=== PATIENT | male | born 1940 ===

== ENCOUNTER 2017-11-02 15:10 | Emergency (ER) | payer OTHER ==
[2017-11-02 15:18] VITALS: TEMP 98; O2SAT 98
[2017-11-02] MEDS ORDERED: Sodium Chloride 0.9% 1,000 ML IV STA (15:42)
[2017-11-02] MEDS ORDERED: Iohexol 240 (50 ml) PO ONE (15:42)
--- NOTE | 2017-11-02 15:46 | ED PDOC ---
HPI: Male Pain Chief Complaint (Provider): urinary and feces incontinence History Per: Patient, Other (friend) History/Exam Limitations: no limitations Onset/Duration Of Symptoms: Days, Gradual Current Symptoms Are (Timing): Other (Worse) Severity: Moderate Quality Of Discomfort: "Pain" Associated Symptoms: Other (Red blood in stools, abd pain) Additional Complaint(s): 77 y/o M, homeless, with no significant PMhx presents accompanied by friend with c/o urinary and feces incontinence for the past 3 months and scrotal swelling for about 1 year. Patient does not have a PCP and was only seen by ED at [facility] few days ago with similar complain. Patient also c/o r/side abd pain that radiates to he back and groin area. Denies vomiting, nausea, diarrhea , CP, SOB, palpitations. Patient's friend states that she also noticed new onset hand tremor recently. As per patient he has started to use diapers but doesnt always notice when he has a BM or urination. Denies scrotal pain. C/O small amount of red blood in stools or toilet with every BM. <Andrew Sanford - Last Filed: 11/02/17 17:26> <Trevro Lama - Last Filed: 11/02/17 21:02> Time Seen by Provider: 11/02/17 15:23 Chief Complaint (Nursing): GI Problem Supervising Attending Note - Supervising Attending Note The Documented history was done by the: Physician Director [employer] The documented physical exam was done by the: Physician Director [employer] The documented procedures were done by the: Physician Director [employer] - Attestation: I have personally seen and examined this patient.: Yes I have fully participated in the care of the patient.: Yes I have reviewed all pertinent clinical information, including history, physical exam and plan: Yes - Notes: Notes:: Pt. stable. Ambulating with no issues. Tolerated PO with no issues. No significant change in hg. Fu with pcp. <Trevor Lama - Last Filed: 11/02/17 21:02> Past Medical History Reviewed: Nursing Documentation, Vital Signs Vital Signs: Last Vital Signs Temp 98 F 11/02/17 15:15 Pulse 76 11/02/17 15:15 Resp 16 11/02/17 15:15 BP 135/66 11/02/17 15:15 Pulse Ox 98 11/02/17 15:15 - Medical History PMH: Denies: Diabetes, HIV, HTN, Chronic Kidney Disease, Seizures, Sexually Transmitted Disease - Surgical History Surgical History: No Surg Hx - Family History Family History: States: Unknown Family Hx - Social History Ex-Smoker (has not smoked in the last 12 months): Yes Alcohol: Occasional - Immunization History Hx Tetanus Toxoid Vaccination: No Hx Influenza Vaccination: No Hx Pneumococcal Vaccination: No <Andrew Sanford - Last Filed: 11/02/17 17:26> Vital Signs: Last Vital Signs Temp 98 F 11/02/17 15:15 Pulse 76 11/02/17 15:15 Resp 16 11/02/17 15:15 BP 135/66 11/02/17 15:15 Pulse Ox 98 11/02/17 17:26 <Trevor Lama - Last Filed: 11/02/17 21:02> - Home Medications Home Medications: Ambulatory Orders Medication Instructions Recorded No Known Home Med 11/02/17 - Allergies Allergies/Adverse Reactions: Allergies Allergy/AdvReac Type Severity Reaction Status Date / Time No Known Allergies Allergy Verified 11/02/17 15:15 Review of Systems ROS Statement: Except As Marked, All Systems Reviewed And Found Negative Gastrointestinal: Positive for: Abdominal Pain, Hematochezia, Rectal Pain Genitourinary Male: Positive for: Other (scrotal swelling) Neurological: Positive for: Other (tremor) <Andrew Sanford - Last Filed: 11/02/17 17:26> Physical Exam - Reviewed Vital Signs Reviewed: Yes - Physical Exam Appears: Positive for: Non-toxic, Uncomfortable. Negative for: Well (smells to urine and feces) Skin: Positive for: Normal Color, Warm Eye Exam: Positive for: Normal appearance Cardiovascular/Chest: Positive for: Regular Rate, Rhythm. Negative for: Gallop Respiratory: Positive for: Normal Breath Sounds. Negative for: Crackles, Rales , Wheezing Gastrointestinal/Abdominal: Positive for: Soft, Tenderness (R/flank mild). Negative for: Guarding, Rebound Male Genital Exam: Positive for: hernia mass (B/L nonreducible inguinal hernia with testicular swelling associated B/L.). Negative for: scrotum tenderness (R) , scrotum tenderness (L), testicular tenderness (R), testicular tenderness (L) Rectal: Positive for: Rectal Tone Is: (Diminished), Stool Is Heme: (+) Extremity: Negative for: Tenderness, Pedal Edema, Calf Tenderness Neurologic/Psych: Positive for: Alert, Oriented. Negative for: Motor/Sensory Deficits <Andrew Sanford - Last Filed: 11/02/17 17:26> - Physical Exam Cardiovascular/Chest: Positive for: Regular Rate, Rhythm Respiratory: Positive for: Normal Breath Sounds Gastrointestinal/Abdominal: Positive for: Tenderness Male Genital Exam: Positive for: hernia mass <Trevor Lama - Last Filed: 11/02/17 21:02> - Laboratory Results Result Diagrams: 11/02/17 16:19 11/02/17 16:19 - ECG O2 Sat by Pulse Oximetry: 98 <Andrew Sanford - Last Filed: 11/02/17 17:26> - Laboratory Results Result Diagrams: 11/02/17 16:19 11/02/17 16:19 Interpretation Of Abn Labs: no acute - ECG Pulse Ox Interpretation: Normal - CT Scan/US ct Other Rad Studies (CT/US): Read By Radiologist Other Rad Interpretation: hernia with no acute - Progress ED Course And Treament: 2057: Stable. AAOx3. Pain free. Tolerated PO. Ambulated with no issues. Fu with pcp. No hg change from old. <Trevor Lama Jorden - Last Filed: 11/02/17 21:02> Medical Decision Making Medical Decision Making: B/L Inguinal hernia with associated urinary and feces incontinence and hematochezia CT scan abd and pelvis CBC, CMP, Coags. FOBT Troponin, Lipase IV fluids Famotidine IV once <Andrew Sanford - Last Filed: 11/02/17 17:26> Disposition <Andrew Sanford - Last Filed: 11/02/17 17:26> - Patient ED Disposition Is Patient to be Admitted: No Counseled Patient/Family Regarding: Studies Performed, Diagnosis, Need For Followup - Disposition Disposition: Routine/Home Disposition Time: 21:00 <Trevor Lama - Last Filed: 11/02/17 21:02> - Clinical Impression Clinical Impression: Inguinal hernia, Abdominal pain - Disposition Referrals: [facility] [Outside] - 11/05/17 Condition: STABLE Additional Instructions: Return if not better in 3 days. Instructions: Acute Abdominal Pain (ED), Inguinal Hernia (ED) Print Language: TRINIDADIAN
[2017-11-02 16:26] LABS: BASO # 0.1 K/uL (0.0-0.2); BASO % 0.7 % (0.0-2.0); EOS # 0.4 K/uL (0.0-0.7); EOS % 4.1 % (0.0-4.0); HEMATOCRIT 34.8 % (35.0-51.0); LYMPH # 1.2 K/uL (1.0-4.3); LYMPH % 13.7 % (20.0-40.0); MEAN CELL VOLUME 91.6 fl (80.0-94.0); MEAN CORPUSCULAR HEMOGLOBIN 30.2 pg (27.0-31.0); MEAN PLATELET VOLUME 7.5 fl (7.2-11.7); MONO # 0.6 K/uL (0.0-0.8); MONO % 7.2 % (0.0-10.0); NEUT # 6.5 K/uL (1.8-7.0); NEUT % 74.3 % (50.0-75.0); RED CELL DISTRIBUTION WIDTH 13.2 % (11.5-14.5); WHITE BLOOD COUNT 8.8 K/uL (4.8-10.8)
[2017-11-02 16:37] LABS: PARTIAL THROMBOPLASTIN TIME 27.5 Seconds (25.6-37.1)
[2017-11-02 17:10] LABS: ALKALINE PHOSPHATASE 74 U/L (38-126); ALT/SGPT 29 U/L (21-72); AST/SGOT 24 U/L (17-59); BILIRUBIN,TOTAL 0.4 mg/dl (0.2-1.3); BLOOD UREA NITROGEN 12 mg/dl (9-20); CALCIUM 8.7 mg/dL (8.4-10.2); CARBON DIOXIDE 30 mmol/L (22-30); CHLORIDE 104 mmol/L (98-107); GFR AFRICAN-AMERICAN > 60; GLUCOSE,RANDOM 98 mg/dL (75-110); LIPASE 41 U/L (23-300); POTASSIUM 4.5 MMOL/L (3.6-5.0); SODIUM 141 mmol/l (132-148); TOTAL PROTEIN 6.6 G/DL (6.3-8.2)
[2017-11-02 17:30] LABS: ALB/GLOB RATIO 1.1 (1.0-2.1)
[2017-11-02] MEDS ORDERED: Iohexol 300 100 ML IJ ONE (18:25)
[2017-11-02 21:25] VITALS: BP 136/77; PULSE 78; RESP 18
--- NOTE | 2017-11-03 08:27 | CT ---
PROCEDURE: CT Abdomen and Pelvis with contrast HISTORY: abd pain COMPARISON: None. TECHNIQUE: Contrast dose: 95 cc of Omnipaque 300 Radiation dose: Total exam DLP = 681 mGy-cm. This CT exam was performed using one or more of the following dose reduction techniques: Automated exposure control, adjustment of the mA and/or kV according to patient size, and/or use of iterative reconstruction technique. FINDINGS: LOWER THORAX: Unremarkable. LIVER: Unremarkable. No gross lesion or ductal dilatation. GALLBLADDER AND BILE DUCTS: Unremarkable. PANCREAS: Unremarkable. No gross lesion or ductal dilatation. SPLEEN: Unremarkable. ADRENALS: Unremarkable. No mass. KIDNEYS AND URETERS: Bilateral hydronephrosis and hydroureter. Large right lower pole renal cyst measuring roughly 8 centimeters. VASCULATURE: Unremarkable. No aortic aneurysm. BOWEL: Unremarkable. No obstruction. No gross mural thickening. APPENDIX: Normal appendix. PERITONEUM: Unremarkable. No free fluid. No free air. LYMPH NODES: Unremarkable. No enlarged lymph nodes. BLADDER: Unremarkable. REPRODUCTIVE: Unremarkable. BONES: No acute fracture. OTHER FINDINGS: Large bilateral inguinal hernias containing colon loops without obstruction or strangulation. IMPRESSION: Large bilateral inguinal hernias containing colon loops without obstruction or strangulation. Bilateral hydronephrosis and hydroureter. Large right lower pole renal cyst.
== END 2017-11-02 21:30 | disposition home or self-care (01) ==
LOC: H.ER 15:10
DX: K40.20 Bilateral inguinal hernia, without obstruction or gangrene, not specified as recurrent (principal); N28.1 Cyst of kidney, acquired
CPT/HCPCS: 74177; 80053; 83690; 84484; 85025; 85610; 85730; 96361; 96374; 99283; G0328; J7040; Q9966; Q9967

== ENCOUNTER 2017-11-06 16:18 | Emergency (ER) | payer OTHER, SELFPAY ==
[2017-11-06 16:22] VITALS: BP 140/77; PULSE 75; RESP 18; TEMP 98.2; O2SAT 99
--- NOTE | 2017-11-06 17:29 | ED PDOC ---
HPI: Male Pain Time Seen by Provider: 11/06/17 17:14 Chief Complaint (Nursing): Male Genitourinary Chief Complaint (Provider): Lower back pain, dysuria History Per: Patient History/Exam Limitations: no limitations Onset/Duration Of Symptoms: Days Current Symptoms Are (Timing): Still Present Additional Complaint(s): Valerio Sosa is a 77 y/o non-domiciled male who presents to the ED complaining of right lower back pain and dysuria, ongoing for some time. Patient was seen here 4 days ago for similar complaints. He also reports having incontinence on and off, which is unchanged from his last visit. Additionally patient is noted to have bilateral inguinal hernias, which he states have no new changes. He offers no new complaints. Denies any fever, chills, hematuria, nausea, vomiting, diarrhea, weakness, numbness, tingling, or dizziness. PMD: None provided Past Medical History Reviewed: Historical Data, Nursing Documentation, Vital Signs Vital Signs: Last Vital Signs Temp 98.2 F 11/06/17 16:19 Pulse 75 11/06/17 16:19 Resp 18 11/06/17 16:19 BP 140/77 11/06/17 16:19 Pulse Ox 99 11/06/17 16:19 - Medical History PMH: Denies: Diabetes, HIV, HTN, Chronic Kidney Disease, Seizures, Sexually Transmitted Disease Other PMH: Inguinal hernia - Surgical History Surgical History: No Surg Hx - Family History Family History: States: Unknown Family Hx - Living Arrangements Living Arrangements: Other (Non-domiciled) - Social History Ex-Smoker (has not smoked in the last 12 months): Yes Alcohol: None Drugs: Denies - Immunization History Hx Tetanus Toxoid Vaccination: No Hx Influenza Vaccination: No Hx Pneumococcal Vaccination: No - Home Medications Home Medications: Ambulatory Orders Medication Instructions Recorded No Known Home Med 11/02/17 - Allergies Allergies/Adverse Reactions: Allergies Allergy/AdvReac Type Severity Reaction Status Date / Time No Known Allergies Allergy Verified 11/06/17 16:19 Review of Systems ROS Statement: Except As Marked, All Systems Reviewed And Found Negative Constitutional: Negative for: Fever, Chills Cardiovascular: Negative for: Chest Pain Respiratory: Negative for: Shortness of Breath Gastrointestinal: Negative for: Nausea, Vomiting, Diarrhea Genitourinary Male: Positive for: Dysuria, Incontinence (chronic per patient), Other (inguinal hernias). Negative for: Hematuria Neurological: Negative for: Weakness, Numbness (and tingling), Dizziness Physical Exam - Reviewed Nursing Documentation Reviewed: Yes Vital Signs Reviewed: Yes - Physical Exam Appears: Positive for: Non-toxic, No Acute Distress Head Exam: Positive for: ATRAUMATIC, NORMAL INSPECTION, NORMOCEPHALIC Skin: Positive for: Normal Color, Warm, Dry Eye Exam: Positive for: EOMI, Normal appearance, PERRL Neck: Positive for: Normal, Painless ROM, Supple Cardiovascular/Chest: Positive for: Regular Rate, Rhythm. Negative for: Murmur Respiratory: Positive for: Normal Breath Sounds. Negative for: Respiratory Distress Gastrointestinal/Abdominal: Positive for: Normal Exam, Soft, Other (B/L inguinal hernias). Negative for: Tenderness Back: Positive for: Normal Inspection, Other (mild tenderness to right lower back) Extremity: Positive for: Normal ROM. Negative for: Pedal Edema, Deformity Neurologic/Psych: Positive for: Alert, Oriented (x 3). Negative for: Motor/ Sensory Deficits - ECG O2 Sat by Pulse Oximetry: 99 (RA) Pulse Ox Interpretation: Normal - Progress ED Course And Treament: 1747: Stable. Chronic symptoms. Frequent ER visits and request to stay till next day. AAOx3. Ambulated with no issues. Fu with pcp. Medical Decision Making Medical Decision Making: Time: 17:24 Initial Plan: --Urine dip --Ibuprofen 600 mg PO Scribe Attestation: Documented by Nanette Gallego, acting as a scribe for Trevor Lama MD Provider Scribe Attestation: All medical record entries made by the Scribe were at my direction and personally dictated by me. I have reviewed the chart and agree that the record accurately reflects my personal performance of the history, physical exam, medical decision making, and the department course for this patient. I have also personally directed, reviewed, and agree with the discharge instructions and disposition. Disposition - Clinical Impression Clinical Impression: Chronic pain - Patient ED Disposition Is Patient to be Admitted: No Counseled Patient/Family Regarding: Studies Performed, Diagnosis, Need For Followup - Disposition Referrals: [facility] [Outside] Disposition: Routine/Home Disposition Time: 17:48 Condition: STABLE Additional Instructions: Return if not better in 3 days. Instructions: Chronic Pain (ED) Print Language: MONGOLIAN
== END 2017-11-06 18:10 | disposition home or self-care (01) ==
LOC: H.ER 16:18
DX: G89.29 Other chronic pain (principal); R30.0 Dysuria; R32 Unspecified urinary incontinence

== ENCOUNTER 2018-03-25 07:19 | Emergency (ER) | payer OTHER, SELFPAY ==
[2018-03-25 07:19] VITALS: BMI 23.8
[2018-03-25 07:32] VITALS: BP 149/78; PULSE 97; RESP 19; TEMP 98.7; O2SAT 99
--- NOTE | 2018-03-25 08:33 | ED PDOC ---
HPI: General Adult Time Seen by Provider: 03/25/18 07:33 Chief Complaint (Nursing): Wound Check Chief Complaint (Provider): Wound check History Per: Patient History/Exam Limitations: no limitations Onset/Duration Of Symptoms: Hrs (today) Current Symptoms Are (Timing): Still Present Additional Complaint(s): Valerio Sosa is a 77 year old male, with a past medical history of BPH, who presents to the emergency department for reattachment of colostomy bags. Patient reports his colostomy bag is not properly attached and needs someone to fix it. He denies any fever, chills or pain. No further medical complaints. PMD: None provided. Past Medical History Reviewed: Historical Data, Nursing Documentation, Vital Signs Vital Signs: Last Vital Signs Temp 98.7 F 03/25/18 07:32 Pulse 97 H 03/25/18 07:32 Resp 19 03/25/18 07:32 BP 149/78 03/25/18 07:32 Pulse Ox 99 03/25/18 09:40 - Medical History PMH: Benign Prostatic Hyperplasia Denies: Diabetes, HIV, HTN, Chronic Kidney Disease, Seizures, Sexually Transmitted Disease - Surgical History Other surgeries: Colostomy - Family History Family History: States: Unknown Family Hx - Social History Current smoker - smoking cessation education provided: No Alcohol: None Drugs: Denies - Immunization History Hx Tetanus Toxoid Vaccination: No Hx Influenza Vaccination: No Hx Pneumococcal Vaccination: No - Home Medications Home Medications: Ambulatory Orders Medication Instructions Recorded Tamsulosin [Flomax] 0.4 mg PO DAILY #30 cap 02/18/18 Cephalexin [Keflex] 500 mg PO Q12 #20 capsule 03/02/18 - Allergies Allergies/Adverse Reactions: Allergies Allergy/AdvReac Type Severity Reaction Status Date / Time No Known Allergies Allergy Verified 01/24/18 13:10 Review of Systems ROS Statement: Except As Marked, All Systems Reviewed And Found Negative Constitutional: Negative for: Fever, Chills Physical Exam - Reviewed Nursing Documentation Reviewed: Yes Vital Signs Reviewed: Yes - Physical Exam Appears: Positive for: Non-toxic, No Acute Distress Head Exam: Positive for: ATRAUMATIC, NORMOCEPHALIC Skin: Positive for: Normal Color, Warm, Dry Eye Exam: Positive for: Normal appearance Neck: Positive for: Painless ROM Cardiovascular/Chest: Positive for: Regular Rate, Rhythm. Negative for: Murmur Respiratory: Positive for: Normal Breath Sounds. Negative for: Respiratory Distress Gastrointestinal/Abdominal: Positive for: Other (Colostomy bag in place with brown stool in bag. 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 Negative for: Tenderness Extremity: Positive for: Normal ROM (all extremities). Negative for: Deformity , Swelling Neurologic/Psych: Positive for: Alert, Oriented. Negative for: Motor/Sensory Deficits - ECG O2 Sat by Pulse Oximetry: 99 (RA) Pulse Ox Interpretation: Normal Medical Decision Making Medical Decision Making: Initial impression: Colostomy bag placement Initial Plan: --Reevaluation 09:30 -Patient eloped. Scribe Attestation: Documented by Willian Fernandes, acting as a scribe for Bekah Leong MD Provider Scribe Attestation: All medical record entries made by the Scribe were at my direction and personally dictated by me. I have reviewed the chart and agree that the record accurately reflects my personal performance of the history, physical exam, medical decision making, and the department course for this patient. I have also personally directed, reviewed, and agree with the discharge instructions and disposition. Disposition - Clinical Impression Clinical Impression: Encounter for wound re-check - Disposition Disposition: Eloped Disposition Time: 09:30 Condition: UNKNOWN Forms: [employer] (Latvian)
== END 2018-03-25 09:40 | disposition left against medical advice (07) ==
LOC: H.ER 07:19
DX: Z43.3 Encounter for attention to colostomy (principal)

== ENCOUNTER 2018-03-25 20:03 | Emergency (ER) | payer OTHER ==
[2018-03-25 20:03] VITALS: BMI 23.8
[2018-03-25 20:18] VITALS: RESP 18
--- NOTE | 2018-03-25 21:09 | ED PDOC ---
HPI: Abdomen Time Seen by Provider: 03/25/18 20:27 Chief Complaint (Nursing): GI Problem Chief Complaint (Provider): wound check History Per: Patient History/Exam Limitations: no limitations Additional Complaint(s): [facility] reports [facility] Also he is concerned that the area of the mucus fistula is wet. Past Medical History Reviewed: Historical Data, Nursing Documentation, Vital Signs Vital Signs: Last Vital Signs Temp 98.6 F 03/25/18 20:13 Pulse 95 H 03/25/18 20:13 Resp 18 03/25/18 20:13 BP 156/79 H 03/25/18 20:13 Pulse Ox 98 03/25/18 21:11 - Medical History PMH: Benign Prostatic Hyperplasia Denies: Diabetes, HIV, HTN, Chronic Kidney Disease, Seizures, Sexually Transmitted Disease - Family History Family History: States: Unknown Family Hx - Immunization History Hx Tetanus Toxoid Vaccination: No Hx Influenza Vaccination: No Hx Pneumococcal Vaccination: No - Home Medications Home Medications: Ambulatory Orders Medication Instructions Recorded Tamsulosin [Flomax] 0.4 mg PO DAILY #30 cap 02/18/18 Cephalexin [Keflex] 500 mg PO Q12 #20 capsule 03/02/18 - Allergies Allergies/Adverse Reactions: Allergies Allergy/AdvReac Type Severity Reaction Status Date / Time No Known Allergies Allergy Verified 01/24/18 13:10 Review of Systems ROS Statement: Except As Marked, All Systems Reviewed And Found Negative (and as per HPI) Gastrointestinal: Negative for: Nausea, Vomiting, Abdominal Pain, Diarrhea Physical Exam - Reviewed Nursing Documentation Reviewed: Yes Vital Signs Reviewed: Yes - Physical Exam Appears: Positive for: Non-toxic, No Acute Distress Gastrointestinal/Abdominal: Positive for: Soft, Other (mucus fistula midline lower abdomen: reducible and nontender well-demarcated opening and no surroudning erythema, minimal serous oozing. Colostomy bag: intact but edges coming off skin. Surrounding skin intact.). Negative for: Tenderness, Mass, Distended, Guarding - ECG O2 Sat by Pulse Oximetry: 98 Medical Decision Making Medical Decision Making: Pt homeless and requesting colostomy and wound care. Colostomy bag replaced by RN and appropriate coverage applied to mucus fistula. Advised to continue outpatient follow up as scheduled. Disposition - Clinical Impression Clinical Impression: Colostomy care Counseled Patient/Family Regarding: Need For Followup - Disposition Disposition: Routine/Home Disposition Time: 21:10 Condition: GOOD Instructions: Colostomy Care Forms: [employer] (Dominican) Print Language: MALTESE
[2018-03-25 23:11] VITALS: BP 124/68; PULSE 80; TEMP 99.1; O2SAT 97
== END 2018-03-26 00:20 | disposition home or self-care (01) ==
LOC: H.ER 20:03
DX: Z43.3 Encounter for attention to colostomy (principal)

== ENCOUNTER 2018-03-27 11:51 | Emergency (ER) | payer OTHER ==
[2018-03-27 11:51] VITALS: BMI 23.8
[2018-03-27 12:02] VITALS: RESP 18; TEMP 98
--- NOTE | 2018-03-27 12:52 | ED PDOC ---
HPI: General Adult Time Seen by Provider: 03/27/18 12:29 Chief Complaint (Nursing): GI Problem Chief Complaint (Provider): Colostomy bag leaking History Per: Patient History/Exam Limitations: no limitations Onset/Duration Of Symptoms: Days (today) Additional Complaint(s): Pt. with colostomy bag leaking. Pt. is homeless and has not emptied bag for a long time and is full of stool. No pain, weakness. Tolerates po well. No vomit. No chest pain. Past Medical History Reviewed: Nursing Documentation, Vital Signs Vital Signs: Last Vital Signs Temp 98 F 03/27/18 12:00 Pulse 93 H 03/27/18 12:00 Resp 18 03/27/18 12:00 BP 103/56 L 03/27/18 12:00 Pulse Ox 97 03/27/18 12:00 - Medical History PMH: Benign Prostatic Hyperplasia Denies: Diabetes, HIV, HTN, Chronic Kidney Disease, Seizures, Sexually Transmitted Disease - Surgical History Other surgeries: colectomy - Family History Family History: States: Unknown Family Hx - Immunization History Hx Tetanus Toxoid Vaccination: No Hx Influenza Vaccination: No Hx Pneumococcal Vaccination: No - Home Medications Home Medications: Ambulatory Orders Medication Instructions Recorded Tamsulosin [Flomax] 0.4 mg PO DAILY #30 cap 02/18/18 Cephalexin [Keflex] 500 mg PO Q12 #20 capsule 03/02/18 - Allergies Allergies/Adverse Reactions: Allergies Allergy/AdvReac Type Severity Reaction Status Date / Time No Known Allergies Allergy Verified 03/27/18 11:59 Review of Systems ROS Statement: Except As Marked, All Systems Reviewed And Found Negative Physical Exam - Reviewed Nursing Documentation Reviewed: Yes Vital Signs Reviewed: Yes - Physical Exam Appears: Positive for: Non-toxic, No Acute Distress Head Exam: Positive for: ATRAUMATIC, NORMAL INSPECTION, NORMOCEPHALIC Skin: Positive for: Normal Color, Warm, DRY Eye Exam: Positive for: EOMI, Normal appearance, PERRL ENT: Positive for: Normal ENT Inspection Neck: Positive for: Normal, Painless ROM Cardiovascular/Chest: Positive for: Regular Rate, Rhythm Respiratory: Positive for: CNT, Normal Breath Sounds Gastrointestinal/Abdominal: Positive for: Normal Exam, Soft, Other (colostomy leaking left lower). Negative for: Tenderness Back: Positive for: Normal Inspection. Negative for: L CVA Tenderness, R CVA Tenderness Extremity: Positive for: Normal ROM. Negative for: Tenderness Neurologic/Psych: Positive for: Alert, Oriented - ECG O2 Sat by Pulse Oximetry: 97 Pulse Ox Interpretation: Normal - Progress ED Course And Treament: 1252: Stable. AAOx3. Here frequently. New colostomy bag applied with no issues. Tolerates po. Disposition - Clinical Impression Clinical Impression: Colostomy care - Patient ED Disposition Is Patient to be Admitted: No Counseled Patient/Family Regarding: Diagnosis, Need For Followup - Disposition Referrals: [facility] [Outside] - 03/28/18 Disposition: Routine/Home Disposition Time: 12:56 Condition: STABLE Instructions: How to Care for Your Ostomy, Adult Print Language: GERMAN
[2018-03-27 13:19] VITALS: BP 109/69; PULSE 82; O2SAT 99
== END 2018-03-27 13:25 | disposition home or self-care (01) ==
LOC: H.ER 11:51
DX: Z93.3 Colostomy status (principal)

== ENCOUNTER 2018-03-27 18:13 | Emergency (ER) | payer OTHER ==
[2018-03-27 18:13] VITALS: BMI 23.8
[2018-03-27 18:20] VITALS: BP 121/69; PULSE 96; RESP 16; TEMP 99; O2SAT 97
--- NOTE | 2018-03-27 19:10 | ED PDOC ---
HPI: General Adult Time Seen by Provider: 03/27/18 18:15 Chief Complaint (Nursing): Abdominal Pain Chief Complaint (Provider): colostomy bag History Per: Patient History/Exam Limitations: no limitations Onset/Duration Of Symptoms: Days (x1) Recently: Seen In ED Additional Complaint(s): 77 year old male, with a past medical history of BPH and colostomyx2, who presents to ED for a colostomy bag change. Patient was seen in the ED at noon today for the same complaint and had his bag changed. He denies any fever, chills or other medical complaints. PMD: None provided. Past Medical History Reviewed: Historical Data, Nursing Documentation, Vital Signs Vital Signs: Last Vital Signs Temp 99 F 03/27/18 18:18 Pulse 96 H 03/27/18 18:18 Resp 16 03/27/18 18:18 BP 121/69 03/27/18 18:18 Pulse Ox 97 03/27/18 19:27 - Medical History PMH: Benign Prostatic Hyperplasia Denies: Diabetes, HIV, HTN, Chronic Kidney Disease, Seizures, Sexually Transmitted Disease - Surgical History Other surgeries: Colostomyx2 - Family History Family History: States: Unknown Family Hx - Social History Current smoker - smoking cessation education provided: No Alcohol: None Drugs: Denies - Immunization History Hx Tetanus Toxoid Vaccination: No Hx Influenza Vaccination: No Hx Pneumococcal Vaccination: No - Home Medications Home Medications: Ambulatory Orders Medication Instructions Recorded Tamsulosin [Flomax] 0.4 mg PO DAILY #30 cap 02/18/18 Cephalexin [Keflex] 500 mg PO Q12 #20 capsule 03/02/18 traMADol [Ultram] 50 mg PO TID PRN #10 tab 03/28/18 - Allergies Allergies/Adverse Reactions: Allergies Allergy/AdvReac Type Severity Reaction Status Date / Time No Known Allergies Allergy Verified 03/28/18 06:59 Review of Systems ROS Statement: Except As Marked, All Systems Reviewed And Found Negative Constitutional: Negative for: Fever, Chills Physical Exam - Reviewed Nursing Documentation Reviewed: Yes Vital Signs Reviewed: Yes - Physical Exam Appears: Positive for: Non-toxic, No Acute Distress Head Exam: Positive for: ATRAUMATIC, NORMAL INSPECTION, NORMOCEPHALIC Skin: Positive for: Normal Color, Warm, Dry Cardiovascular/Chest: Positive for: Regular Rate, Rhythm. Negative for: Murmur Respiratory: Positive for: Normal Breath Sounds. Negative for: Wheezing, Respiratory Distress Gastrointestinal/Abdominal: Positive for: Normal Exam, Soft, Other (colostomy bag site X2). Negative for: Tenderness Back: Positive for: Normal Inspection. Negative for: L CVA Tenderness, R CVA Tenderness, Vertebral Tenderness Extremity: Positive for: Normal ROM (upper/lower). Negative for: Deformity, Swelling Neurologic/Psych: Positive for: Alert, Oriented. Negative for: Motor/Sensory Deficits - ECG O2 Sat by Pulse Oximetry: 97 (RA) Pulse Ox Interpretation: Normal Medical Decision Making Medical Decision Making: Initial Impression: Colostomy Bag Change Initial Plan: -Patient's colostomy was changed again. 19:06 Patient is medically stable for discharge. Patient advised to follow up with outpatient health clinic. Scribe Attestation: Documented by Edmundo Trejo acting as a scribe for Emerita Brown MD. Provider Scribe Attestation: All medical record entries made by the Scribe were at my direction and personally dictated by me. I have reviewed the chart and agree that the record accurately reflects my personal performance of the history, physical exam, medical decision making, and the department course for this patient. I have also personally directed, reviewed, and agree with the discharge instructions and disposition. Disposition - Clinical Impression Clinical Impression: Encounter for ostomy care education - Patient ED Disposition Is Patient to be Admitted: No Counseled Patient/Family Regarding: Need For Followup - Disposition Referrals: [facility] [Outside] [facility] [Outside] Disposition: Routine/Home Disposition Time: 19:00 Condition: IMPROVED Additional Instructions: follow up with your primary doctor in 1-2 days return to the ED with any worsening or concerning symptoms Instructions: How to Care for Your Ostomy, Adult Forms: [employer] ([place]er) Print Language: MACANESE
== END 2018-03-27 19:09 | disposition home or self-care (01) ==
LOC: H.ER 18:13
DX: Z93.3 Colostomy status (principal)

== ENCOUNTER 2018-03-27 21:42 | Emergency (ER) | payer OTHER ==
[2018-03-27 21:42] VITALS: BMI 23.8
[2018-03-27 22:00] VITALS: O2SAT 99
[2018-03-27 23:38] LABS: HEMOGLOBIN 9.3 g/dL (12.0-18.0); MEAN CORPUSCULAR HGB CONC 32.5 g/dL (33.0-37.0); RBC 3.22 Mil/uL (4.40-5.90); RED CELL DISTRIBUTION WIDTH 17.8 % (11.5-14.5); WHITE BLOOD COUNT 6.7 K/uL (4.8-10.8)
--- NOTE | 2018-03-27 23:44 | ED PDOC ---
HPI: Back Time Seen by Provider: 03/27/18 22:01 Chief Complaint (Nursing): Back Pain Chief Complaint (Provider): Back Pain History Per: Patient History/Exam Limitations: no limitations Onset/Duration Of Symptoms: Hrs (4hrs) Additional Complaint(s): 77 year old male patient is well known to the ED. Patient has a history of colostomy presents with 3rd visit to ED. He was in the waiting room for 4 hours and is complaining of atraumatic upper back pain. States he is unable to walk. However, patient was ambulatory in ED without any difficulty. Denies urinary incontinence, numbness or weakness to lower extremities. PMD: No Family Provider Past Medical History Reviewed: Historical Data, Nursing Documentation, Vital Signs Vital Signs: Last Vital Signs Temp 98.0 F 03/27/18 21:57 Pulse 77 03/27/18 21:57 Resp 16 03/27/18 21:57 BP 136/79 03/27/18 21:57 Pulse Ox 99 03/27/18 21:57 - Medical History PMH: Benign Prostatic Hyperplasia Denies: Diabetes, HIV, HTN, Chronic Kidney Disease, Seizures, Sexually Transmitted Disease - Surgical History Other surgeries: colostomy - Family History Family History: States: Unknown Family Hx - Immunization History Hx Tetanus Toxoid Vaccination: No Hx Influenza Vaccination: No Hx Pneumococcal Vaccination: No - Home Medications Home Medications: Ambulatory Orders Medication Instructions Recorded Tamsulosin [Flomax] 0.4 mg PO DAILY #30 cap 02/18/18 Cephalexin [Keflex] 500 mg PO Q12 #20 capsule 03/02/18 - Allergies Allergies/Adverse Reactions: Allergies Allergy/AdvReac Type Severity Reaction Status Date / Time No Known Allergies Allergy Verified 03/27/18 18:18 Review of Systems ROS Statement: Except As Marked, All Systems Reviewed And Found Negative Genitourinary Male: Negative for: Incontinence Musculoskeletal: Positive for: Back Pain. Negative for: Other (numbness or weakness to lower extremities) Physical Exam - Reviewed Nursing Documentation Reviewed: Yes Vital Signs Reviewed: Yes - Physical Exam Appears: Positive for: Well, Non-toxic, No Acute Distress Head Exam: Positive for: ATRAUMATIC, NORMAL INSPECTION, NORMOCEPHALIC Skin: Positive for: Normal Color, Warm, Dry Eye Exam: Positive for: EOMI, Normal appearance, PERRL ENT: Positive for: Normal ENT Inspection Neck: Positive for: Normal, Painless ROM, Supple. Negative for: Decreased ROM Cardiovascular/Chest: Positive for: Regular Rate, Rhythm. Negative for: Murmur Respiratory: Positive for: Normal Breath Sounds. Negative for: Decreased Breath Sounds, Accessory Muscle Use, Wheezing, Respiratory Distress Gastrointestinal/Abdominal: Positive for: Normal Exam (colostomy in place and clean), Bowel Sounds, Soft. Negative for: Tenderness Back: Positive for: Muscle Spasm (upper thoracic ), Other (paravertebral tenderness). Negative for: Vertebral Tenderness (muscle tenderness ) Extremity: Positive for: Normal ROM. Negative for: Tenderness, Pedal Edema, Deformity Neurologic/Psych: Positive for: Alert, Oriented (x3). Negative for: Motor/ Sensory Deficits - Laboratory Results Result Diagrams: 03/27/18 23:36 03/27/18 23:36 - ECG O2 Sat by Pulse Oximetry: 99 (RA) Pulse Ox Interpretation: Normal Medical Decision Making Medical Decision Making: Time: 2242 Initial Impression: Back Pain A/P: 77 year old male with a history of colostomy presenting with musculoskeletal pain. Patient was seen ambulating in ED. Will check blood work and reevaluate patient. Initial Plan: --BMP --CBC Stat --Tylenol 650mg --Urinalysis --Reevalution 500 Patient remains well appearing, no acute distress, ambulatory with steady gait, outpatient referral given. Scribe Attestation: Documented by Enrique Vidal, acting as a scribe for Angel Groves MD Provider Scribe Attestation: All medical record entries made by the Scribe were at my direction and personally dictated by me. I have reviewed the chart and agree that the record accurately reflects my personal performance of the history, physical exam, medical decision making, and the department course for this patient. I have also personally directed, reviewed, and agree with the discharge instructions and disposition. Disposition - Clinical Impression Clinical Impression: Back pain - Patient ED Disposition Is Patient to be Admitted: No - Disposition Referrals: [facility] [Outside] Disposition: Routine/Home Disposition Time: 05:48 Condition: IMPROVED Instructions: Upper Back Pain Forms: [employer] (Telugu)
[2018-03-27 23:51] LABS: BLOOD UREA NITROGEN 16 mg/dl (9-20); CALCIUM 7.9 mg/dL (8.4-10.2); GFR AFRICAN-AMERICAN > 60; GFR NON-AFRICAN AMERICAN > 60
[2018-03-28] MEDS ORDERED: Potassium Chloride 20 mEq ER Tab PO ONE ×2 (01:41→01:43)
[2018-03-28 05:58] VITALS: BP 130/82; PULSE 83; RESP 18; TEMP 98.4
== END 2018-03-28 05:59 | disposition home or self-care (01) ==
LOC: H.ER 21:42
DX: M54.9 Dorsalgia, unspecified (principal); N40.0 Benign prostatic hyperplasia without lower urinary tract symptoms; Z93.3 Colostomy status

== ENCOUNTER 2018-03-29 19:44 | Emergency (ER) | payer OTHER ==
[2018-03-29 19:44] VITALS: BMI 23.8
[2018-03-29 20:33] VITALS: BP 133/74; PULSE 73; RESP 18; TEMP 98.6; O2SAT 100
--- NOTE | 2018-03-29 22:35 | ED PDOC ---
HPI: Abdomen Time Seen by Provider: 03/29/18 21:29 Chief Complaint (Nursing): Abdominal Pain Chief Complaint (Provider): Colostomy evaluation History Per: Patient History/Exam Limitations: no limitations Current Symptoms Are (Timing): Still Present Additional Complaint(s): 77 year old male presented to ED for evaluation of colostomy due to leakage from surgical wounds. Colostomy and mucous fistula were performed in january this year. Patient is homeless and well known to the ED for recurrent visits for the same issues. Of note: he refuses to perform appropriate self care for his colostomy despite being educated multiple times on process of draining colostomy bag. PCP: none provided Past Medical History Reviewed: Historical Data, Nursing Documentation, Vital Signs Vital Signs: Last Vital Signs Temp 98.6 F 03/29/18 20:30 Pulse 73 03/29/18 20:30 Resp 18 03/29/18 20:30 BP 133/74 03/29/18 20:30 Pulse Ox 100 03/29/18 23:00 - Medical History PMH: Benign Prostatic Hyperplasia Denies: Diabetes, HIV, HTN, Chronic Kidney Disease, Seizures, Sexually Transmitted Disease - Surgical History Other surgeries: colostomy and mucous fistula - Family History Family History: States: Unknown Family Hx - Immunization History Hx Tetanus Toxoid Vaccination: No Hx Influenza Vaccination: No Hx Pneumococcal Vaccination: No - Home Medications Home Medications: Ambulatory Orders Medication Instructions Recorded Tamsulosin [Flomax] 0.4 mg PO DAILY #30 cap 02/18/18 Cephalexin [Keflex] 500 mg PO Q12 #20 capsule 03/02/18 traMADol [Ultram] 50 mg PO TID PRN #10 tab 03/28/18 - Allergies Allergies/Adverse Reactions: Allergies Allergy/AdvReac Type Severity Reaction Status Date / Time No Known Allergies Allergy Verified 03/29/18 20:30 Review of Systems ROS Statement: Except As Marked, All Systems Reviewed And Found Negative Physical Exam - Reviewed Nursing Documentation Reviewed: Yes Vital Signs Reviewed: Yes - Physical Exam Appears: Positive for: Well, Non-toxic, No Acute Distress Head Exam: Positive for: ATRAUMATIC, NORMAL INSPECTION Skin: Positive for: Normal Color, Warm, Dry Eye Exam: Positive for: Normal appearance ENT: Positive for: Normal ENT Inspection Neck: Positive for: Normal, Painless ROM Respiratory: Positive for: Normal Breath Sounds. Negative for: Wheezing, Respiratory Distress Gastrointestinal/Abdominal: Positive for: Normal Exam, Soft. Negative for: Tenderness, Mass, Guarding, Rebound, Other (surrounding errythema on abdominal wall near colostomy in LLQ with full bag; errythema surrounding mucous fistula in midline suprapubic region) Extremity: Positive for: Normal ROM (upper/lower) Neurologic/Psych: Positive for: Alert, Oriented. Negative for: Motor/Sensory Deficits - ECG O2 Sat by Pulse Oximetry: 100 (RA) Pulse Ox Interpretation: Normal Medical Decision Making Medical Decision Making: Initial Impression: mucous fistula and colostomy No signs of infection or dysfunction of stomas. Scribe Attestation: Documented by Edmundo Trejo acting as a scribe for Sandie Rodriguez MD. Provider Scribe Attestation: All medical record entries made by the Scribe were at my direction and personally dictated by me. I have reviewed the chart and agree that the record accurately reflects my personal performance of the history, physical exam, medical decision making, and the department course for this patient. I have also personally directed, reviewed, and agree with the discharge instructions and disposition. Disposition - Clinical Impression Clinical Impression: Colostomy care, Surgically created abdominal mucous fistula - Disposition Referrals: [facility] [Outside] - 04/01/18 Disposition: Routine/Home Disposition Time: 22:00 Condition: GOOD Instructions: How to Care for Your Ostomy, Adult Forms: [employer] (Tuvaluan) Print Language: KAZAKH
== END 2018-03-29 23:30 | disposition home or self-care (01) ==
LOC: H.ER 19:44
DX: Z93.3 Colostomy status (principal); N40.0 Benign prostatic hyperplasia without lower urinary tract symptoms

== ENCOUNTER 2018-03-30 17:47 | Emergency (ER) | payer OTHER ==
[2018-03-30 17:48] VITALS: BMI 23.8
[2018-03-30 18:01] VITALS: BP 128/73; PULSE 81; RESP 18; TEMP 98.4; O2SAT 99
--- NOTE | 2018-03-30 18:05 | ED PDOC ---
HPI: General Adult Time Seen by Provider: 03/30/18 18:04 Chief Complaint (Nursing): Abnormal Skin Integrity Chief Complaint (Provider): Colostomy Problem History Per: Patient History/Exam Limitations: no limitations Onset/Duration Of Symptoms: Hrs (3) Have you had recent travel within the past 21 days to any of the following countries: [place], [place], [place] or [place]?: No Current Symptoms Are (Timing): Still Present Additional Complaint(s): Pt presents to the ED for the second time in 24 hours with the same presenting problem and that is that his ostomy bag overflowed because he refuses to empty it. Accordingly, the patient is covered in feces and appears exasperated. Pt denies other symptoms or trauma Past Medical History Reviewed: Historical Data, Nursing Documentation, Vital Signs Vital Signs: Last Vital Signs Temp 98.4 F 03/30/18 17:57 Pulse 81 03/30/18 17:57 Resp 18 03/30/18 17:57 BP 128/73 03/30/18 17:57 Pulse Ox 99 03/30/18 18:04 - Medical History PMH: Benign Prostatic Hyperplasia Denies: Diabetes, HIV, HTN, Chronic Kidney Disease, Seizures, Sexually Transmitted Disease - Family History Family History: States: Unknown Family Hx - Immunization History Hx Tetanus Toxoid Vaccination: No Hx Influenza Vaccination: No Hx Pneumococcal Vaccination: No - Home Medications Home Medications: Ambulatory Orders Medication Instructions Recorded Tamsulosin [Flomax] 0.4 mg PO DAILY #30 cap 02/18/18 Cephalexin [Keflex] 500 mg PO Q12 #20 capsule 03/02/18 traMADol [Ultram] 50 mg PO TID PRN #10 tab 03/28/18 - Allergies Allergies/Adverse Reactions: Allergies Allergy/AdvReac Type Severity Reaction Status Date / Time No Known Allergies Allergy Verified 03/30/18 17:55 Review of Systems ROS Statement: Except As Marked, All Systems Reviewed And Found Negative Gastrointestinal: Positive for: Other (see HPI) Physical Exam - Reviewed Nursing Documentation Reviewed: Yes Vital Signs Reviewed: Yes - Physical Exam Appears: Positive for: Uncomfortable Head Exam: Positive for: ATRAUMATIC, NORMAL INSPECTION Skin: Positive for: Normal Color, Warm, Dry Neck: Positive for: Normal, Painless ROM, Supple. Negative for: Decreased ROM Cardiovascular/Chest: Positive for: Regular Rate, Rhythm Respiratory: Positive for: Normal Breath Sounds Pulses-Carotid (L): 2+ Pulses-Carotid (R): 2+ Pulses-Radial (L): 2+ Pulses-Radial (R): 2+ Gastrointestinal/Abdominal: Positive for: Other (see note HPI regarding ostomy bag) - ECG O2 Sat by Pulse Oximetry: 99 Medical Decision Making Medical Decision Making: Pt will be cleaned ostomy bag replaced fitted with new pants discharged with instructions to change his ostomy bag Disposition - Clinical Impression Clinical Impression: Encounter for ostomy care education - Patient ED Disposition Is Patient to be Admitted: No Counseled Patient/Family Regarding: Need For Followup - Disposition Referrals: [facility] [Outside] Disposition: Routine/Home Disposition Time: 19:26 Condition: GOOD Instructions: Colostomy Care, How to Care for Your Ostomy, Adult Forms: [facility] (Cuban), [employer] Connect (Armenian) Print Language: BULGARIAN
[2018-03-30] MEDS ORDERED: Povidone Iodine Oint 10% Foilpak UD ONE (18:36)
== END 2018-03-30 20:02 | disposition home or self-care (01) ==
LOC: H.ER 17:47
DX: Z93.3 Colostomy status (principal); N40.0 Benign prostatic hyperplasia without lower urinary tract symptoms

== ENCOUNTER 2018-03-30 21:30 | Emergency (ER) | payer OTHER ==
[2018-03-30 21:31] VITALS: BMI 23.8
[2018-03-30 21:41] VITALS: BP 129/74; PULSE 86; RESP 18; TEMP 98.1; O2SAT 95
--- NOTE | 2018-03-30 23:53 | ED PDOC ---
HPI: Male Pain Time Seen by Provider: 03/30/18 23:05 Chief Complaint (Nursing): Male Genitourinary Chief Complaint (Provider): Dysuria Past Medical History Vital Signs: Last Vital Signs Temp 98.1 F 03/30/18 21:36 Pulse 86 03/30/18 21:36 Resp 18 03/30/18 21:36 BP 129/74 03/30/18 21:36 Pulse Ox 95 03/30/18 21:36 - Medical History PMH: Benign Prostatic Hyperplasia Denies: Diabetes, HIV, HTN, Chronic Kidney Disease, Seizures, Sexually Transmitted Disease - Family History Family History: States: Unknown Family Hx - Immunization History Hx Tetanus Toxoid Vaccination: No Hx Influenza Vaccination: No Hx Pneumococcal Vaccination: No - Home Medications Home Medications: Ambulatory Orders Medication Instructions Recorded Tamsulosin [Flomax] 0.4 mg PO DAILY #30 cap 02/18/18 Cephalexin [Keflex] 500 mg PO Q12 #20 capsule 03/02/18 traMADol [Ultram] 50 mg PO TID PRN #10 tab 03/28/18 Ciprofloxacin [Cipro] 500 mg PO BID #10 tab 03/30/18 - Allergies Allergies/Adverse Reactions: Allergies Allergy/AdvReac Type Severity Reaction Status Date / Time No Known Allergies Allergy Verified 03/30/18 21:35 - ECG O2 Sat by Pulse Oximetry: 95 Medical Decision Making Medical Decision Making: Trace leuks Disposition - Clinical Impression Clinical Impression: UTI (urinary tract infection) - Patient ED Disposition Is Patient to be Admitted: No Counseled Patient/Family Regarding: Diagnosis, Need For Followup, Rx Given - Disposition Disposition: Routine/Home Disposition Time: 23:51 Condition: STABLE Prescriptions: Ciprofloxacin [Cipro] 500 mg PO BID #10 tab Instructions: Urinary Tract Infections in Adults
== END 2018-03-30 23:55 | disposition home or self-care (01) ==
LOC: H.ER 21:30
DX: N39.0 Urinary tract infection, site not specified (principal); N40.0 Benign prostatic hyperplasia without lower urinary tract symptoms

== ENCOUNTER 2018-03-31 06:11 | Emergency (ER) | payer OTHER ==
[2018-03-31 07:11] VITALS: BMI 27.3
[2018-03-31 07:14] VITALS: RESP 18; TEMP 98.3; O2SAT 100
--- NOTE | 2018-03-31 07:27 | ED PDOC ---
HPI: Abdomen Time Seen by Provider: 03/31/18 07:03 Chief Complaint (Nursing): Abdominal Pain History Per: Patient Onset/Duration Of Symptoms: Unknown Current Symptoms Are (Timing): Still Present Severity: Mild Location Of Pain/Discomfort: Other (At colostomy site) Quality Of Discomfort: Unable To Describe Associated Symptoms: denies: Nausea, Vomiting, Diarrhea Exacerbating Factors: None Alleviating Factors: None Additional Complaint(s): Persistent pain at colostomy site as well as right inguinal hernai. No vomiting or diarrhea. Has been passing both stool and gas as per colostomy. Denies fever. No bleeding in stool. Past Medical History Vital Signs: Last Vital Signs Temp 98.3 F 03/31/18 07:11 Pulse 65 03/31/18 07:11 Resp 18 03/31/18 07:11 BP 136/76 03/31/18 07:11 Pulse Ox 100 03/31/18 07:31 - Medical History PMH: Benign Prostatic Hyperplasia, Malignancy (Rectal adeno Ca s/p colectomy) Denies: Diabetes, HIV, HTN, Chronic Kidney Disease, Seizures, Sexually Transmitted Disease Other PMH: Abd mucous fistula - Surgical History Other surgeries: s/p colostomy - Family History Family History: States: Unknown Family Hx - Immunization History Hx Tetanus Toxoid Vaccination: No Hx Influenza Vaccination: No Hx Pneumococcal Vaccination: No - Home Medications Home Medications: Ambulatory Orders Medication Instructions Recorded Tamsulosin [Flomax] 0.4 mg PO DAILY #30 cap 02/18/18 Cephalexin [Keflex] 500 mg PO Q12 #20 capsule 03/02/18 traMADol [Ultram] 50 mg PO TID PRN #10 tab 03/28/18 Ciprofloxacin [Cipro] 500 mg PO BID #10 tab 03/30/18 Naproxen [Naprosyn] 500 mg PO Q12H #20 tab 03/31/18 - Allergies Allergies/Adverse Reactions: Allergies Allergy/AdvReac Type Severity Reaction Status Date / Time No Known Allergies Allergy Verified 03/31/18 07:10 Review of Systems Constitutional: Negative for: Fever Gastrointestinal: Positive for: Abdominal Pain. Negative for: Nausea, Vomiting , Diarrhea, Melena, Hematochezia, Hematemesis Physical Exam - Physical Exam Appears: Positive for: Non-toxic, No Acute Distress Skin: Positive for: Normal Color, Warm, DRY Cardiovascular/Chest: Positive for: Regular Rate, Rhythm Respiratory: Negative for: Wheezing, Respiratory Distress Gastrointestinal/Abdominal: Positive for: Bowel Sounds, Soft, Other (Stool in colostomy bag no gross blood. Granulomatous changes midline inf to umbilcus. Right inguinal hernia reducible.) Neurologic/Psych: Positive for: Alert, Oriented. Negative for: Motor/Sensory Deficits - Laboratory Results Result Diagrams: 03/31/18 08:50 03/31/18 08:50 - ECG O2 Sat by Pulse Oximetry: 100 Disposition - Clinical Impression Clinical Impression: Inguinal hernia - Patient ED Disposition Is Patient to be Admitted: No Counseled Patient/Family Regarding: Studies Performed, Diagnosis, Need For Followup, Rx Given - Disposition Referrals: [facility] [Outside] Disposition: Routine/Home Disposition Time: 10:37 Condition: FAIR Prescriptions: Naproxen [Naprosyn] 500 mg PO Q12H #20 tab Instructions: Inguinal and Femoral (Groin) Hernias Forms: [facility] (Bangladeshi) Print Language: AMERICAN
[2018-03-31 08:58] LABS: BASO # 0.1 K/uL (0.0-0.2); EOS # 0.2 K/uL (0.0-0.7); EOS % 4.2 % (0.0-4.0); HEMOGLOBIN 9.8 g/dL (12.0-18.0); LYMPH # 0.8 K/uL (1.0-4.3); LYMPH % 14.3 % (20.0-40.0); MEAN CELL VOLUME 89.1 fl (80.0-94.0); MEAN CORPUSCULAR HEMOGLOBIN 29.2 pg (27.0-31.0); MEAN CORPUSCULAR HGB CONC 32.8 g/dL (33.0-37.0); MEAN PLATELET VOLUME 7.6 fl (7.2-11.7); MONO # 0.5 K/uL (0.0-0.8); MONO % 9.4 % (0.0-10.0); NEUT # 4.1 K/uL (1.8-7.0); NEUT % 71.1 % (50.0-75.0); RBC 3.35 Mil/uL (4.40-5.90); RED CELL DISTRIBUTION WIDTH 17.8 % (11.5-14.5); WHITE BLOOD COUNT 5.8 K/uL (4.8-10.8)
[2018-03-31 09:28] LABS: ALB/GLOB RATIO 0.9 (1.0-2.1); ALBUMIN 3.1 g/dL (3.5-5.0); ALT/SGPT 30 U/L (21-72); AST/SGOT 12 U/L (17-59); BLOOD UREA NITROGEN 12 mg/dl (9-20); CALCIUM 8.4 mg/dL (8.4-10.2); GFR AFRICAN-AMERICAN > 60; GFR NON-AFRICAN AMERICAN > 60
--- NOTE | 2018-03-31 10:26 | CT ---
PROCEDURE: CT Abdomen and Pelvis without intravenous contrast HISTORY: r/o kidney stone COMPARISON: None. TECHNIQUE: Contiguous images were obtained from the domes of the diaphragms to the upper thighs without the administration of intravenous contrast. Oral contrast was not administered. Radiation dose: Total exam DLP = Total exam DLP = 319.7 mGy-cm. This CT exam was performed using one or more of the following dose reduction techniques: Automated exposure control, adjustment of the mA and/or kV according to patient size, and/or use of iterative reconstruction technique. FINDINGS: LOWER THORAX: Cardiomegaly. Coronary arterial and valvular calcifications. Bibasilar atelectasis. No focal consolidation or pleural effusion. LIVER: Unremarkable. No gross lesion or ductal dilatation. GALLBLADDER AND BILE DUCTS: Unremarkable. PANCREAS: Unremarkable. No gross lesion or ductal dilatation. SPLEEN: Stable 1.0 x 1.5 cm hypo attenuating structure in the inferior spleen with focal calcification. ADRENALS: Unremarkable. No mass. KIDNEYS AND URETERS: Stable appearance of moderate to severe bilateral hydroureteronephrosis. Stable 10 cm right lower pole cyst. Punctate nonobstructive right renal calculi. Left perinephric stranding. No solid mass. VASCULATURE: Unremarkable. No aortic aneurysm. BOWEL: Left lower quadrant colostomy redemonstrated. Cecum and terminal ileum noted in the in the right inguinal hernia. Miguel's pouch/ sigmoid colon ostomy again seen in the ventral midline. No obstruction. No gross mural thickening. APPENDIX: Not visualized ; base of cecum excluded from the scan area. PERITONEUM: Large nonobstructive bowel containing right inguinal hernia. Postoperative changes involving the left inguinal clear no all No free fluid. No free air. LYMPH NODES: Unremarkable. No enlarged lymph nodes. BLADDER: Unremarkable. REPRODUCTIVE: Unremarkable. BONES: Spinal and pelvic degenerative changes. No acute fracture. OTHER FINDINGS: None. IMPRESSION: No obstructive uropathy or evidence of recently passed genitourinary calculus. Stable appearance of moderate to severe bilateral hydroureteronephrosis. Nonspecific left perinephric stranding for which infection of the left renal collecting system cannot be entirely excluded. Clinical correlation is recommended. Additional stable findings as above.
[2018-03-31 13:21] VITALS: BP 130/70; PULSE 68
== END 2018-03-31 12:34 | disposition home or self-care (01) ==
LOC: H.ER 06:11
DX: K40.90 Unilateral inguinal hernia, without obstruction or gangrene, not specified as recurrent (principal); N40.0 Benign prostatic hyperplasia without lower urinary tract symptoms; Z90.49 Acquired absence of other specified parts of digestive tract

== ENCOUNTER 2018-04-03 14:04 | Emergency (ER) | payer SELFPAY ==
[2018-04-03 14:04] VITALS: BMI 27.3
[2018-04-03 14:17] VITALS: BP 136/61; PULSE 82; RESP 18; TEMP 97.9; O2SAT 99
[2018-04-03] MEDS ORDERED: Sodium Chloride 0.9% 1,000 ML IV STA (14:33)
--- NOTE | 2018-04-03 14:41 | ED PDOC ---
HPI: General Adult Time Seen by Provider: 04/03/18 14:14 Chief Complaint (Nursing): Abnormal Skin Integrity Chief Complaint (Provider): Bleeding around colostomy History Per: Patient History/Exam Limitations: no limitations Onset/Duration Of Symptoms: Days (yesterday) Current Symptoms Are (Timing): Still Present Additional Complaint(s): Pt. states bleeding around colostomy ongoing since yesterday. States colostomy bag also full. Has pain at the colostomy site, not different then usual. No chest pain, dyspnea, weakness, headaches, chest pain, dyspnea, fever, cough. No dysuria. Is homeless and does not care for himself. Frequent ER visits for colostomy bag changes. Past Medical History Reviewed: Historical Data, Nursing Documentation, Vital Signs Vital Signs: Last Vital Signs Temp 97.9 F 04/03/18 14:14 Pulse 82 04/03/18 14:14 Resp 18 04/03/18 14:14 BP 136/61 04/03/18 14:14 Pulse Ox 99 04/03/18 17:15 - Medical History PMH: Benign Prostatic Hyperplasia, Malignancy (Rectal adeno Ca s/p colectomy) Denies: Diabetes, HIV, HTN, Chronic Kidney Disease, Seizures, Sexually Transmitted Disease - Surgical History Other surgeries: colectomy with colostomy bag - Family History Family History: States: Unknown Family Hx - Immunization History Hx Tetanus Toxoid Vaccination: No Hx Influenza Vaccination: No Hx Pneumococcal Vaccination: No - Home Medications Home Medications: Ambulatory Orders Medication Instructions Recorded Tamsulosin [Flomax] 0.4 mg PO DAILY #30 cap 02/18/18 Cephalexin [Keflex] 500 mg PO Q12 #20 capsule 03/02/18 traMADol [Ultram] 50 mg PO TID PRN #10 tab 03/28/18 Ciprofloxacin [Cipro] 500 mg PO BID #10 tab 03/30/18 Naproxen [Naprosyn] 500 mg PO Q12H #20 tab 03/31/18 - Allergies Allergies/Adverse Reactions: Allergies Allergy/AdvReac Type Severity Reaction Status Date / Time No Known Allergies Allergy Verified 03/31/18 07:10 Review of Systems ROS Statement: Except As Marked, All Systems Reviewed And Found Negative Gastrointestinal: Positive for: Abdominal Pain, Hematochezia Physical Exam - Reviewed Nursing Documentation Reviewed: Yes Vital Signs Reviewed: Yes - Physical Exam Appears: Positive for: Non-toxic, No Acute Distress Head Exam: Positive for: ATRAUMATIC, NORMAL INSPECTION, NORMOCEPHALIC Skin: Positive for: Normal Color, Warm, DRY Eye Exam: Positive for: EOMI, Normal appearance, PERRL ENT: Positive for: Normal ENT Inspection Neck: Positive for: Normal, Painless ROM Cardiovascular/Chest: Positive for: Regular Rate, Rhythm Respiratory: Positive for: CNT, Normal Breath Sounds Gastrointestinal/Abdominal: Positive for: Soft, Tenderness (L lower around colostomy; bright blood around colostomy and some stool mixed in and leaking from bag; bag is full of stool.) Back: Positive for: Normal Inspection. Negative for: L CVA Tenderness, R CVA Tenderness Extremity: Positive for: Normal ROM. Negative for: Tenderness, Pedal Edema Neurologic/Psych: Positive for: Alert, Oriented - Laboratory Results Result Diagrams: 04/03/18 15:40 04/03/18 15:40 Interpretation Of Abn Labs: 9.7 hg, similar to old - ECG O2 Sat by Pulse Oximetry: 99 Pulse Ox Interpretation: Normal - Progress ED Course And Treament: 1710: Stable. Surgery coming to see pt. 1752: Pt. has capacity to make decisions. Is AAOx3. Refusing to stay for further evaluation and treatment. Aware of possible or decreased functioning from bleeding and the cause of it. Pt. will go against medical advice. Multiple ER visits for the same. Wants to go to the assisted before it closes. Disposition - Clinical Impression Clinical Impression: Encounter for ostomy care education, GI bleed - Disposition Disposition: Against Medical Advice Disposition Time: 17:40 Condition: STABLE
[2018-04-03 15:57] LABS: BASO # 0.1 K/uL (0.0-0.2); BASO % 1.2 % (0.0-2.0); EOS # 0.4 K/uL (0.0-0.7); EOS % 5.5 % (0.0-4.0); HEMOGLOBIN 9.7 g/dL (12.0-18.0); LYMPH # 1.1 K/uL (1.0-4.3); LYMPH % 15.1 % (20.0-40.0); MEAN CORPUSCULAR HGB CONC 32.6 g/dL (33.0-37.0); MEAN PLATELET VOLUME 7.6 fl (7.2-11.7); MONO # 0.6 K/uL (0.0-0.8); MONO % 8.1 % (0.0-10.0); NEUT % 70.1 % (50.0-75.0); RBC 3.33 Mil/uL (4.40-5.90); RED CELL DISTRIBUTION WIDTH 16.9 % (11.5-14.5); WHITE BLOOD COUNT 7.1 K/uL (4.8-10.8)
[2018-04-03 16:07] LABS: ALBUMIN 3.2 g/dL (3.5-5.0); ALT/SGPT 18 U/L (21-72); AST/SGOT 14 U/L (17-59); BLOOD UREA NITROGEN 15 mg/dl (9-20); CALCIUM 8.5 mg/dL (8.4-10.2); GFR AFRICAN-AMERICAN > 60; GFR NON-AFRICAN AMERICAN 59
[2018-04-03 16:34] LABS: PROTHROMBIN TIME 11.1 Seconds (9.8-13.1)
== END 2018-04-03 17:15 | disposition left against medical advice (07) ==
LOC: H.ER 14:04
DX: K92.2 Gastrointestinal hemorrhage, unspecified (principal); Z93.3 Colostomy status; N40.0 Benign prostatic hyperplasia without lower urinary tract symptoms; Z59.0 Homelessness; Z90.49 Acquired absence of other specified parts of digestive tract
CPT/HCPCS: 80053; 85025; 85610; 85730; 86850; 86900; 99283; J7040

== ENCOUNTER 2018-04-09 16:51 | Emergency (ER) | payer MEDICAID, SELFPAY ==
[2018-04-09 16:52] VITALS: BMI 27.3
[2018-04-09 20:00] LABS: BASO % 0.5 % (0.0-2.0); EOS # 0.3 K/uL (0.0-0.7); EOS % 4.1 % (0.0-4.0); HEMOGLOBIN 9.9 g/dL (12.0-18.0); LYMPH # 1.1 K/uL (1.0-4.3); LYMPH % 15.7 % (20.0-40.0); MEAN CELL VOLUME 87.7 fl (80.0-94.0); MEAN CORPUSCULAR HEMOGLOBIN 28.6 pg (27.0-31.0); MEAN CORPUSCULAR HGB CONC 32.6 g/dL (33.0-37.0); MEAN PLATELET VOLUME 7.7 fl (7.2-11.7); MONO # 0.6 K/uL (0.0-0.8); MONO % 8.3 % (0.0-10.0); NEUT # 4.8 K/uL (1.8-7.0); NEUT % 71.4 % (50.0-75.0); NRBC % 0.1 % (0.0-0.0); RBC 3.48 Mil/uL (4.40-5.90); RED CELL DISTRIBUTION WIDTH 16.4 % (11.5-14.5); WHITE BLOOD COUNT 6.8 K/uL (4.8-10.8)
[2018-04-09 20:20] LABS: INR 1.1 (0.9-1.2); PARTIAL THROMBOPLASTIN TIME 29.5 Seconds (25.6-37.1); PROTHROMBIN TIME 11.8 Seconds (9.8-13.1)
[2018-04-09 20:27] LABS: ALBUMIN 3.1 g/dL (3.5-5.0); CALCIUM 8.2 mg/dL (8.4-10.2)
--- NOTE | 2018-04-09 20:59 | ED PDOC ---
HPI: Wound Care - HPI Time Seen by Provider: 04/09/18 18:10 Chief Complaint (Nursing): Wound Check Chief Complaint (Provider): bleeding from abdominal wound History Per: Patient Quality Of Symptoms: Swollen, Draining Additional Complaint(s): 77yo man known well to this ER for homelessness and frequent visits for evaluation of colostomy and abdominal mucus fistula. These were placed in January 2018 for treatment of a perirectal abscess and rectal cancer. He reports difficulty with self-care and that he has blood coming out of the mucus fistula. This, however, is not new and has presented multiple times to this ER with this complaint. He has normal output from his colostomy. Denies decreased appetite or difficulty feeding. He reports for the last day he has had blood in his urine. Past Medical History Reviewed: Historical Data, Nursing Documentation, Vital Signs Vital Signs: Last Vital Signs Temp 98.7 F 04/09/18 17:29 Pulse 86 04/09/18 17:29 Resp 18 04/09/18 17:29 BP 185/95 H 04/09/18 17:29 Pulse Ox 96 04/09/18 17:29 - Medical History PMH: Benign Prostatic Hyperplasia, Malignancy (Rectal adeno Ca s/p colectomy) Denies: Diabetes, HIV, HTN, Chronic Kidney Disease, Seizures, Sexually Transmitted Disease - Surgical History Surgical History: Hernia Repair Other surgeries: Colostomy, mucus fistula, rectal abscess/cancer/resection, LEFT inguinal hernia - Family History Family History: States: Unknown Family Hx - Immunization History Hx Tetanus Toxoid Vaccination: No Hx Influenza Vaccination: No Hx Pneumococcal Vaccination: No - Home Medications Home Medications: Ambulatory Orders Medication Instructions Recorded Ciprofloxacin HCl [Cipro] 500 mg PO BID #20 tab 04/09/18 - Allergies Allergies/Adverse Reactions: Allergies Allergy/AdvReac Type Severity Reaction Status Date / Time No Known Allergies Allergy Verified 04/06/18 11:01 Review of Systems ROS Statement: Except As Marked, All Systems Reviewed And Found Negative (and as per HPI) Gastrointestinal: Positive for: Abdominal Pain Genitourinary Male: Positive for: Hematuria. Negative for: Dysuria, Frequency Physical Exam - Reviewed Nursing Documentation Reviewed: Yes Vital Signs Reviewed: Yes - Physical Exam Appears: Positive for: Non-toxic, No Acute Distress Head Exam: Positive for: ATRAUMATIC, NORMOCEPHALIC Skin: Positive for: Warm, Dry Eye Exam: Positive for: EOMI, PERRL Respiratory: Negative for: Accessory Muscle Use, Respiratory Distress Gastrointestinal/Abdominal: Positive for: Soft, Other (mucus fistula: stoma well demarcated, bowel easily reduced, red jelly like substance found near stoma. Colostomy: intact, no surrounding erythema.). Negative for: Tenderness, Mass, Distended, Guarding - Laboratory Results Result Diagrams: 04/09/18 19:49 04/09/18 19:49 - ECG O2 Sat by Pulse Oximetry: 96 - Progress ED Course And Treament: [facility] resident who evaluated pt in ER. Pt stable on surgical standpoint. Has clinic appt . Labs indicate UTI. Cx/sensitivities pending. Cipro Rx. Disposition - Clinical Impression Clinical Impression: Surgically created abdominal mucous fistula, Encounter for postoperative wound check, UTI (urinary tract infection) Counseled Patient/Family Regarding: Studies Performed, Diagnosis, Need For Followup - Disposition Disposition: Routine/Home Disposition Time: 20:58 Condition: STABLE Additional Instructions: [facility] Prescriptions: Ciprofloxacin HCl [Cipro] 500 mg PO BID #20 tab Instructions: Urinary Tract Infection, Adult (DC), Surgical Wound (DC), Colostomy Care Print Language: ARABIC
[2018-04-09 23:02] VITALS: BP 158/90; PULSE 66; RESP 20; TEMP 98.2
[2018-04-10 14:33] VITALS: O2SAT 96
== END 2018-04-10 00:08 | disposition home or self-care (01) ==
LOC: H.ER 16:51
DX: Z48.815 Encounter for surgical aftercare following surgery on the digestive system (principal); N39.0 Urinary tract infection, site not specified; C20 Malignant neoplasm of rectum; N40.0 Benign prostatic hyperplasia without lower urinary tract symptoms; Z59.0 Homelessness

== ENCOUNTER 2018-04-12 07:25 | Emergency (ER) | payer SELFPAY ==
[2018-04-12 07:34] VITALS: BMI 24.0
--- NOTE | 2018-04-12 08:06 | ED PDOC ---
HPI: Wound Care - HPI Time Seen by Provider: 04/12/18 07:38 Chief Complaint (Nursing): Wound Check History Per: Patient (presents for colostomy bag problems. states that one came loose and another broke. he has been to the ER for this exclusively.) Past Medical History Reviewed: Historical Data Vital Signs: Last Vital Signs Temp 98.2 F 04/12/18 07:30 Pulse 86 04/12/18 07:30 Resp 17 04/12/18 07:30 BP 152/79 H 04/12/18 07:30 Pulse Ox 99 04/12/18 07:30 - Medical History PMH: Benign Prostatic Hyperplasia, Malignancy (Rectal adeno Ca s/p colectomy) Denies: Diabetes, HIV, HTN, Chronic Kidney Disease, Seizures, Sexually Transmitted Disease - Surgical History Surgical History: Hernia Repair - Family History Family History: States: Unknown Family Hx - Immunization History Hx Tetanus Toxoid Vaccination: No Hx Influenza Vaccination: No Hx Pneumococcal Vaccination: No - Home Medications Home Medications: Ambulatory Orders Medication Instructions Recorded Ciprofloxacin HCl [Cipro] 500 mg PO BID #20 tab 04/09/18 - Allergies Allergies/Adverse Reactions: Allergies Allergy/AdvReac Type Severity Reaction Status Date / Time No Known Allergies Allergy Verified 04/12/18 07:35 Review of Systems ROS Statement: Except As Marked, All Systems Reviewed And Found Negative Constitutional: Negative for: Fever, Chills Gastrointestinal: Negative for: Vomiting, Abdominal Pain Physical Exam - Reviewed Nursing Documentation Reviewed: Yes Vital Signs Reviewed: Yes - Physical Exam Appears: Positive for: Well, Non-toxic, No Acute Distress Head Exam: Positive for: ATRAUMATIC, NORMAL INSPECTION, NORMOCEPHALIC Skin: Positive for: Normal Color, Warm, DRY Eye Exam: Positive for: Normal appearance, EOMI Respiratory: Negative for: Respiratory Distress Gastrointestinal/Abdominal: Positive for: Other (colostomy site clean). Negative for: Distended Extremity: Positive for: Normal ROM - ECG O2 Sat by Pulse Oximetry: 99 Disposition - Clinical Impression Clinical Impression: Colostomy care - Patient ED Disposition Is Patient to be Admitted: No Doctor Will See Patient In The: Office Counseled Patient/Family Regarding: Diagnosis, Need For Followup - Disposition Referrals: [facility] [Outside] [facility] [Outside] [facility] [Outside] Disposition: Routine/Home Disposition Time: 08:07 Condition: STABLE Instructions: How to Care for Your Ostomy, Adult Print Language: NEPALESE - ISIDRO Present On Arrival: None
[2018-04-12 08:28] VITALS: BP 144/82; PULSE 68; RESP 20; TEMP 98.3; O2SAT 96
== END 2018-04-12 08:15 | disposition home or self-care (01) ==
LOC: H.ER 07:25
DX: Z93.3 Colostomy status (principal)

== ENCOUNTER 2018-04-15 06:30 | Inpatient (IN) | payer OTHER, SELFPAY ==
[2018-04-15 06:30] VITALS: BMI 24.0
[2018-04-15 09:43] LABS: URINE BACTERIA RARE (<OCC); URINE BILIRUBIN NEGATIVE (NEGATIVE); URINE BLOOD SMALL (NEGATIVE); URINE CLARITY SLIGHTY-CLOUDY (Clear); URINE COLOR STRAW (YELLOW); URINE GLUCOSE (UA) NEG (Normal); URINE LEUKOCYTE ESTERASE LARGE Leu/uL (Negative); URINE PROTEIN NEGATIVE (NEGATIVE); URINE UROBILINOGEN 0.2-1.0 mg/dL (0.2-1.0)
[2018-04-15] MEDS ORDERED: Linezolid 600 mg in D5W 300 ml 600 MG/300 ML BAG IVPB STA (10:14)
--- NOTE | 2018-04-15 10:26 | ED PDOC ---
HPI: General Adult Time Seen by Provider: 04/15/18 07:10 Chief Complaint (Nursing): Abdominal Pain Chief Complaint (Provider): Rectal Pain History Per: Patient History/Exam Limitations: no limitations Onset/Duration Of Symptoms: Days (x 1) Current Symptoms Are (Timing): Still Present Additional Complaint(s): 77 year old male presents to the ED for a new colostomy bag and evaluation of rectal pain since last night. Patient also complains of dysuria. Denies hematuria. PMD: none provided Past Medical History Reviewed: Historical Data, Nursing Documentation, Vital Signs Vital Signs: Last Vital Signs Temp 98.1 F 04/21/18 15:40 Pulse 71 04/21/18 15:40 Resp 19 04/21/18 15:40 BP 129/66 04/21/18 15:40 Pulse Ox 97 04/21/18 15:40 - Medical History PMH: Benign Prostatic Hyperplasia, Malignancy (Rectal adeno Ca s/p colectomy) Denies: Diabetes, HIV, HTN, Chronic Kidney Disease, Seizures, Sexually Transmitted Disease - Surgical History Surgical History: Hernia Repair - Family History Family History: States: Unknown Family Hx - Immunization History Hx Tetanus Toxoid Vaccination: No Hx Influenza Vaccination: No Hx Pneumococcal Vaccination: No - Home Medications Home Medications: Ambulatory Orders Medication Instructions Recorded No Known Home Med 04/15/18 - Allergies Allergies/Adverse Reactions: Allergies Allergy/AdvReac Type Severity Reaction Status Date / Time No Known Allergies Allergy Verified 04/15/18 06:39 Review of Systems ROS Statement: Except As Marked, All Systems Reviewed And Found Negative Gastrointestinal: Positive for: Rectal Pain, Other (colostomy bag present) Physical Exam - Reviewed Nursing Documentation Reviewed: Yes Vital Signs Reviewed: Yes - Physical Exam Appears: Positive for: No Acute Distress Head Exam: Positive for: ATRAUMATIC, NORMOCEPHALIC Skin: Positive for: Normal Color, Warm, Dry Eye Exam: Positive for: EOMI, Normal appearance, PERRL Neck: Positive for: Normal, Painless ROM Cardiovascular/Chest: Positive for: Regular Rate, Rhythm Respiratory: Positive for: CNT, Normal Breath Sounds Gastrointestinal/Abdominal: Positive for: Other (ostomy bag in place with mucous fistula) Rectal: Positive for: Mass Neurologic/Psych: Positive for: Alert, Oriented (x 3) - Laboratory Results Result Diagrams: 04/19/18 05:00 04/19/18 05:00 - ECG O2 Sat by Pulse Oximetry: 97 (RA) Pulse Ox Interpretation: Normal Medical Decision Making Medical Decision Making: Time: 10:12 Initial Plan: --EKG --CMP --Infectious disease consult --Urine dip --CBC --PTT --Prothrombin time --Linezolid 600 mg in 300 ml IVPB --Blood culture --Urine culture --Urinalysis Upon review of previous records, the patient was contacted about a urine culture that revealed VRE. The [facility] resident was contacted and agreed to admit him to the hospital. He will be admitted to inpatient care due to this diagnosis. Scribe Attestation: Documented by Ne Bower, acting as a scribe for Bekah Leong MD Provider Scribe Attestation: All medical record entries made by the Scribe were at my direction and personally dictated by me. I have reviewed the chart and agree that the record accurately reflects my personal performance of the history, physical exam, medical decision making, and the department course for this patient. I have also personally directed, reviewed, and agree with the discharge instructions and disposition. Disposition - Clinical Impression Clinical Impression: VRE (vancomycin resistant enterococcus) culture positive, UTI (urinary tract infection) - Patient ED Disposition Is Patient to be Admitted: Yes - Disposition Disposition Time: 10:20 Condition: STABLE - Pt Status Changed To: Hospital Disposition Of: Inpatient - Admit Certification Admit to Inpatient:: After my assessment, the patient will require hospitalization for at least two midnights. This is because of the severity of symptoms shown, intensity of services needed, and/or the medical risk in this patient being treated as an outpatient. - POA Present On Arrival: None
[2018-04-15 10:48] LABS: BASO % 0.6 % (0.0-2.0); EOS # 0.2 K/uL (0.0-0.7); EOS % 3.3 % (0.0-4.0); HEMOGLOBIN 10.1 g/dL (12.0-18.0); LYMPH # 0.8 K/uL (1.0-4.3); MEAN CELL VOLUME 87.3 fl (80.0-94.0); MEAN CORPUSCULAR HGB CONC 33.2 g/dL (33.0-37.0); MEAN PLATELET VOLUME 7.9 fl (7.2-11.7); MONO # 0.4 K/uL (0.0-0.8); MONO % 5.4 % (0.0-10.0); NEUT # 5.1 K/uL (1.8-7.0); NEUT % 78.7 % (50.0-75.0); RBC 3.48 Mil/uL (4.40-5.90); RED CELL DISTRIBUTION WIDTH 16.2 % (11.5-14.5); WHITE BLOOD COUNT 6.5 K/uL (4.8-10.8)
[2018-04-15 10:52] LABS: PARTIAL THROMBOPLASTIN TIME 27.6 Seconds (25.6-37.1); PROTHROMBIN TIME 11.2 Seconds (9.8-13.1)
[2018-04-15 10:57] LABS: ALB/GLOB RATIO 0.9 (1.0-2.1); ALBUMIN 3.2 g/dL (3.5-5.0); ALT/SGPT 22 U/L (21-72); AST/SGOT 14 U/L (17-59); BLOOD UREA NITROGEN 20 mg/dl (9-20); CALCIUM 8.7 mg/dL (8.4-10.2); GFR AFRICAN-AMERICAN > 60; GFR NON-AFRICAN AMERICAN > 60
--- NOTE | 2018-04-15 11:39 | CP.PCM.CON ---
History of Present Illness - History of Present Illness History of Present Illness: admitted for rectal pain and dysuria- with VRE on recent culture started on Zyvox - Medical History PMH: Benign Prostatic Hyperplasia, Malignancy (Rectal adeno Ca s/p colectomy) Denies: Diabetes, HIV, HTN, Chronic Kidney Disease, Seizures, Sexually Transmitted Disease Review of Systems - Review of Systems All systems: reviewed and no additional remarkable complaints except - Constitutional Constitutional: As Per HPI - EENT Eyes: absent: As Per HPI, Blind Spots, Blurred Vision, Change in Vision, Decreased Night Vision, Diplopia, Discharge, Dry Eye, Exophthalmos, Floaters, Irritation, Itchy Eyes, Loss of Peripheral Vision, Pain, Photophobia, Requires Corrective Lenses, Sees Flashes, Spots in Vision, Tunnel Vision, Other Visual Disturbances, Loss of Vision, Other Ears: absent: As Per HPI, Decreased Hearing, Ear Discharge, Ear Pain, Tinnitus, Abnormal Hearing, Disequilibrium, Dizziness, Other Nose/Mouth/Throat: absent: As Per HPI, Epistaxis, Nasal Congestion, Nasal Discharge, Nasal Obstruction, Nasal Trauma, Nose Pain, Post Nasal Drip, Sinus Pain, Sinus Pressure, Bleeding Gums, Change in Voice, Dental Pain, Dry Mouth, Dysphagia, Halitosis, Hoarsness, Lip Swelling, Mouth Lesions, Mouth Pain, Odynophagia, Sore Throat, Throat Swelling, Tongue Swelling, Facial Pain, Neck Pain, Neck Mass, Other - Cardiovascular Cardiovascular: absent: As Per HPI, Acrocyanosis, Chest Pain, Chest Pain at Rest , Chest Pain with Activity, Claudication, Diaphoresis, Dyspnea, Dyspnea on Exertion, Edema, Irregular Heart Rhythm, Pain Radiating to Arm/Neck/Jaw, Leg Edema, Leg Ulcers, Lightheadedness, Orthopnea, Palpitations, Paroxysmal Nocturnal Dyspnea, Pedal Edema, Radiating Pain, Rapid Heart Rate, Slow Heart Rate, Syncope, Other - Respiratory Respiratory: absent: As Per HPI, Cough, Dyspnea, Hemoptysis, Dyspnea on Exertion , Wheezing, Snoring, Stridor, Pain on Inspiration, Chest Congestion, Excessive Mucous Production, Change in Mucous Color, Pain with Coughing, Other - Gastrointestinal Gastrointestinal: absent: As Per HPI, Abdominal Pain, Belching, Bloating, Change in Bowel Habits, Change in Stool Character, Coffee Ground Emesis, Constipation, Cramping, Diarrhea, Dyspepsia, Dysphagia, Early Satiety, Excessive Flatus, Fecal Incontinence, Heartburn, Hematemesis, Hematochezia, Loose Stools, Melena, Nausea, Odynophagia, Temesmus, Vomiting, Other - Genitourinary Genitourinary: As Per HPI - Musculoskeletal Musculoskeletal: absent: As Per HPI, Abnormal Gait, Arthralgias, Atrophy, Back Pain, Deformity, Joint Swelling, Limited Range of Motion, Loss of Height, Muscle Cramps, Muscle Weakness, Myalgias, Neck Pain, Numbness, Radiating Pain into Limb, Stiffness, Tingling, Other - Integumentary Integumentary: absent: As Per HPI, Acne, Alopecia, Bleeding Lesions, Change in Hair, Change in Nails, Change in Pigmentation, Changing Lesions, Dry Skin, Erythema, Furuncle, Hirsutism, Lesions, New Lesions, Non-Healing Lesions, Photosensitivity, Pruritus, Rash, Skin Pain, Skin Ulcer, Sores, Striae, Swelling , Unusual Bruising, Wounds, Jaundice, Other - Neurological Neurological: absent: As Per HPI, Abnormal Gait, Abnormal Hearing, Abnormal Movements, Abnormal Speech, Behavioral Changes, Burning Sensations, Confusion, Convulsions, Disequilibrium, Dizziness, Numbness, Focal Weakness, Frequent Falls , Headaches, Lack of Coordination, Loss of Vision, Memory Loss, Paresthesias, Radicular Pain, Restless Legs, Sensory Deficit, Syncope, Tingling, Tremor, Vertigo, Weakness, Other Visual Disturbances, Other - Psychiatric Psychiatric: absent: As Per HPI, Abnormal Sleep Pattern, Anhedonia, Anxiety, Auditory Hallucinations, Behavioral Changes, Change in Appetite, Change in Libido, Confusion, Depression, Difficulty Concentrating, Hallucinations, Homicidal Ideation, Hopelessness, Irritability, Memory Loss, Mood Swings, Panic Attacks, Paranoia, Suicidal Ideation, Visual Hallucinations, Tactile Hallucinations, Other - Endocrine Endocrine: absent: As Per HPI, Change in Body Appearance, Change in Libido, Cold Intolorance, Deepening of Voice, Excessive Sweating, Fatigue, Flushing, Heat Intolorance, Increase in Ring/Shoe/Hat Size, Palpitations, Polydipsia, Polyphagia, Polyuria, Other - Hematologic/Lymphatic Hematologic: absent: As Per HPI, Easy Bleeding, Easy Bruising, Lymphadenopathy, Other Past Patient History - Infectious Disease Hx of Infectious Diseases: None - Past Medical History & Family History Past Medical History?: Yes - Past Social History Smoking Status: Never Smoked - CARDIAC Hx Hypertension: No - PULMONARY Hx Respiratory Disorders: No - NEUROLOGICAL Hx Seizures: No - HEENT Hx HEENT Problems: No - RENAL Hx Chronic Kidney Disease: No - ENDOCRINE/METABOLIC Hx Endocrine Disorders: No - HEMATOLOGICAL/ONCOLOGICAL Hx Human Immunodeficiency Virus (HIV): No - INTEGUMENTARY Hx Dermatological Problems: No - MUSCULOSKELETAL/RHEUMATOLOGICAL Hx Musculoskeletal Disorders: No Hx Falls: No - GASTROINTESTINAL Hx Gastrointestinal Disorders: Yes Hx Bowel Surgery: Yes (bowel resection) Hx Colostomy: Yes (x 2) Hx Ileostomy: Yes Other/Comment: bilatera Inguinal Hernia. Rectal bleeding, rectal adenocarcinoma - GENITOURINARY/GYNECOLOGICAL Hx Sexually Transmitted Disorders: No - PSYCHIATRIC Hx Psychophysiologic Disorder: No Hx Substance Use: No - SURGICAL HISTORY Hx Surgeries: Yes Other/Comment: colostomy - ANESTHESIA Hx Anesthesia: Yes Hx Anesthesia Reactions: No Hx Malignant Hyperthermia: No Meds Allergies/Adverse Reactions: Allergies Allergy/AdvReac Type Severity Reaction Status Date / Time No Known Allergies Allergy Verified 04/15/18 06:39 - Medications Medications: Current Medications Linezolid (Zyvox 600mg/300ml D5w) 600 mg in 300 mls @ 300 mls/hr IVPB Q12 TAYLA PRN Reason: Protocol Physical Exam - Constitutional Appears: Chronically Ill - Head Exam Head Exam: NORMOCEPHALIC - Eye Exam Eye Exam: absent: Scleral icterus - ENT Exam ENT Exam: Mucous Membranes Dry, Normal External Ear Exam - Neck Exam Neck exam: Negative for: Thyromegaly - Respiratory Exam Respiratory Exam: Decreased Breath Sounds, Rhonchi - Cardiovascular Exam Cardiovascular Exam: REGULAR RHYTHM, +S1, +S2 - GI/Abdominal Exam GI & Abdominal Exam: Diminished Bowel Sounds, Soft. absent: Tenderness - Rectal Exam Rectal Exam: Deferred - Exam Exam: NORMAL INSPECTION - Extremities Exam Extremities exam: Negative for: pedal edema - Back Exam Back exam: absent: CVA tenderness (L), CVA tenderness (R) - Neurological Exam Neurological exam: Alert, CN II-XII Intact - Psychiatric Exam Psychiatric exam: Depressed - Skin Skin Exam: Dry Results - Vital Signs Recent Vital Signs: Last Vital Signs Temp 98.5 F 04/15/18 06:39 Pulse 88 04/15/18 06:39 Resp 16 05/21/18 06:39 BP 144/81 04/15/18 06:39 Pulse Ox 97 04/15/18 10:39 - Labs Result Diagrams: 04/15/18 10:30 04/15/18 10:30 Labs: Laboratory Results - last 24 hr 04/15/18 04/15/18 04/15/18 09:25 10:30 10:30 WBC 6.5 RBC 3.48 L Hgb 10.1 L Hct 30.4 L MCV 87.3 MCH 29.0 MCHC 33.2 RDW 16.2 H Plt Count 281 MPV 7.9 Neut % (Auto) 78.7 H Lymph % (Auto) 12.0 L [place] % (Auto) 5.4 Eos % (Auto) 3.3 Baso % (Auto) 0.6 Neut # (Auto) 5.1 Lymph # (Auto) 0.8 L [place] # (Auto) 0.4 Eos # (Auto) 0.2 Baso # (Auto) 0.0 PT INR APTT Sodium 145 Potassium 3.6 Chloride 106 Carbon Dioxide 25 Anion Gap 18 BUN 20 Creatinine 1.1 Est GFR ( Amer) > 60 Est GFR (Non-Af Amer) > 60 Random Glucose 94 Calcium 8.7 Total Bilirubin 0.4 AST 14 L D ALT 22 Alkaline Phosphatase 67 Total Protein 6.6 Albumin 3.2 L Globulin 3.4 Albumin/Globulin Ratio 0.9 L Urine Color Straw Urine Clarity Slighty-cloudy Urine pH 6.0 Ur Specific [place] 1.006 Urine Protein Negative Urine Glucose (UA) Neg Urine Ketones Negative Urine Blood Small Urine Nitrate Negative Urine Bilirubin Negative Urine Urobilinogen 0.2-1.0 Ur Leukocyte Esterase Large Urine RBC (Auto) 14 H Urine Microscopic WBC 95 H Urine Bacteria Rare 04/15/18 10:30 WBC RBC Hgb Hct MCV MCH MCHC RDW Plt Count MPV Neut % (Auto) Lymph % (Auto) [place] % (Auto) Eos % (Auto) Baso % (Auto) Neut # (Auto) Lymph # (Auto) [place] # (Auto) Eos # (Auto) Baso # (Auto) PT 11.2 INR 1.0 APTT 27.6 Sodium Potassium Chloride Carbon Dioxide Anion Gap BUN Creatinine Est GFR ( Amer) Est GFR (Non-Af Amer) Random Glucose Calcium Total Bilirubin AST ALT Alkaline Phosphatase Total Protein Albumin Globulin Albumin/Globulin Ratio Urine Color Urine Clarity Urine pH Ur Specific [place] Urine Protein Urine Glucose (UA) Urine Ketones Urine Blood Urine Nitrate Urine Bilirubin Urine Urobilinogen Ur Leukocyte Esterase Urine RBC (Auto) Urine Microscopic WBC Urine Bacteria Assessment & Plan (1) VRE (vancomycin resistant enterococcus) culture positive Status: Acute (2) VRE (vancomycin resistant enterococcus) culture positive Status: Acute (3) Abdominal pain Status: Acute - Assessment and Plan (Free Text) Assessment: will start zyvox pending repeat cultures
--- NOTE | 2018-04-15 11:50 | CP.PCM.HP ---
History of Present Illness - History of Present Illness History of Present Illness: 77 year old undomiciled male with a pmhx of rectal adenocarcinoma, emile-rectal mass, inguinal hernia, chronic anemia, and BPH presented to ED w/ complaints of difficulty with urination, intermittent dysuria and emile-rectal discharge. Pt has partial colectomy and revision of colostomy s/p colostomy on 02/09/18. Pt reports mucus drainage from perianal abscess and drainage from colostomy bags. Pt is homeless and has not been following up outpatient surgery or oncology. Reports intermittent hematuria for few days. Denies headache, dizziness, chest pain, cough, dyspnea, fever, chills, nausea, or vomiting. Pt had urine cx done on 04/09/18 which shows VRE. ED course: VS: BP 144/81, HR 88, RR 16, Temp 98.5F, pulse ox 97% Labs: CBC: remarkable for chronic anemia (stable) CMP, PT/INR, Procalcitonin: WNL UA: small blood, leukocyte large, urine rbc 14, urine WBC 95 EKG: no acute changes Meds: Zyvox 600mg IVP PMD: [facility] (only one visit on 03/22/18) Pmhx: rectal adenocarcinoma, chronic anemia, BPH, inguinal hernia, emile-anal abscess, alcohol use disorder. Pshx: colostomy and mucous fistula Social hx: Denies smoking cigarettes, alcohol use or drug uses. hx detox 08/2016 Family hx: denies Medications: Flomax 0.4mg po daily Allergies: NKDA Present on Admission - Present on Admission Any Indicators Present on Admission: Yes Review of Systems - Constitutional Constitutional: absent: Chills, Fever - EENT Eyes: absent: Change in Vision Nose/Mouth/Throat: absent: Sore Throat - Cardiovascular Cardiovascular: absent: Chest Pain, Chest Pain at Rest, Dyspnea - Respiratory Respiratory: absent: Cough, Dyspnea - Gastrointestinal Gastrointestinal: absent: Abdominal Pain, Nausea, Vomiting - Genitourinary Genitourinary: Dysuria, Hematuria - Neurological Neurological: absent: Dizziness, Headaches Past Patient History - Infectious Disease Hx of Infectious Diseases: None - Past Medical History & Family History Past Medical History?: Yes - Past Social History Smoking Status: Never Smoked - CARDIAC Hx Hypertension: No - PULMONARY Hx Respiratory Disorders: No - NEUROLOGICAL Hx Seizures: No - HEENT Hx HEENT Problems: No - RENAL Hx Chronic Kidney Disease: No - ENDOCRINE/METABOLIC Hx Endocrine Disorders: No - HEMATOLOGICAL/ONCOLOGICAL Hx Human Immunodeficiency Virus (HIV): No - INTEGUMENTARY Hx Dermatological Problems: No - MUSCULOSKELETAL/RHEUMATOLOGICAL Hx Musculoskeletal Disorders: No Hx Falls: No - GASTROINTESTINAL Hx Gastrointestinal Disorders: Yes Hx Bowel Surgery: Yes (bowel resection) Hx Colostomy: Yes (x 2) Hx Ileostomy: Yes Other/Comment: bilatera Inguinal Hernia. Rectal bleeding, rectal adenocarcinoma - GENITOURINARY/GYNECOLOGICAL Hx Sexually Transmitted Disorders: No - PSYCHIATRIC Hx Psychophysiologic Disorder: No Hx Substance Use: No - SURGICAL HISTORY Hx Surgeries: Yes Other/Comment: colostomy - ANESTHESIA Hx Anesthesia: Yes Hx Anesthesia Reactions: No Hx Malignant Hyperthermia: No Meds Allergies/Adverse Reactions: Allergies Allergy/AdvReac Type Severity Reaction Status Date / Time No Known Allergies Allergy Verified 04/15/18 06:39 Physical Exam - Constitutional Appears: No Acute Distress Additional comments: unkempt - Head Exam Head Exam: ATRAUMATIC, NORMAL INSPECTION - Eye Exam Eye Exam: EOMI, Normal appearance - ENT Exam ENT Exam: Mucous Membranes Moist, Normal Oropharynx - Respiratory Exam Respiratory Exam: Clear to Auscultation Bilateral, NORMAL BREATHING PATTERN. absent: Rales, Rhonchi, Wheezes - Cardiovascular Exam Cardiovascular Exam: REGULAR RHYTHM, RRR, +S1, +S2 - GI/Abdominal Exam GI & Abdominal Exam: Hernia (Right inguinal ), Normal Bowel Sounds, Soft Additional comments: two colostomy bag noted with serosanguinous fluid with possible leakage. - Rectal Exam Additional comments: Perirectal abscess on left buttock with no active draining seen. - Extremities Exam Extremities exam: Positive for: normal inspection. Negative for: calf tenderness, pedal edema - Back Exam Back exam: absent: CVA tenderness (L), CVA tenderness (R) - Neurological Exam Neurological exam: Alert, Oriented x3 - Psychiatric Exam Psychiatric exam: Normal Affect, Normal Mood Results - Vital Signs Recent Vital Signs: Last Vital Signs Temp 98.5 F 04/15/18 06:39 Pulse 88 04/15/18 06:39 Resp 16 04/15/18 06:39 BP 144/81 04/15/18 06:39 Pulse Ox 97 04/15/18 10:39 - Labs Result Diagrams: 04/15/18 10:30 04/15/18 10:30 Labs: Laboratory Results - last 24 hr 04/15/18 04/15/18 04/15/18 09:25 10:30 10:30 WBC 6.5 RBC 3.48 L Hgb 10.1 L Hct 30.4 L MCV 87.3 MCH 29.0 MCHC 33.2 RDW 16.2 H Plt Count 281 MPV 7.9 Neut % (Auto) 78.7 H Lymph % (Auto) 12.0 L [place] % (Auto) 5.4 Eos % (Auto) 3.3 Baso % (Auto) 0.6 Neut # (Auto) 5.1 Lymph # (Auto) 0.8 L [place] # (Auto) 0.4 Eos # (Auto) 0.2 Baso # (Auto) 0.0 PT INR APTT Sodium 145 Potassium 3.6 Chloride 106 Carbon Dioxide 25 Anion Gap 18 BUN 20 Creatinine 1.1 Est GFR ( Amer) > 60 Est GFR (Non-Af Amer) > 60 Random Glucose 94 Calcium 8.7 Total Bilirubin 0.4 AST 14 L D ALT 22 Alkaline Phosphatase 67 Total Protein 6.6 Albumin 3.2 L Globulin 3.4 Albumin/Globulin Ratio 0.9 L Urine Color Straw Urine Clarity Slighty-cloudy Urine pH 6.0 Ur Specific [place] 1.006 Urine Protein Negative Urine Glucose (UA) Neg Urine Ketones Negative Urine Blood Small Urine Nitrate Negative Urine Bilirubin Negative Urine Urobilinogen 0.2-1.0 Ur Leukocyte Esterase Large Urine RBC (Auto) 14 H Urine Microscopic WBC 95 H Urine Bacteria Rare 04/15/18 10:30 WBC RBC Hgb Hct MCV MCH MCHC RDW Plt Count MPV Neut % (Auto) Lymph % (Auto) [place] % (Auto) Eos % (Auto) Baso % (Auto) Neut # (Auto) Lymph # (Auto) [place] # (Auto) Eos # (Auto) Baso # (Auto) PT 11.2 INR 1.0 APTT 27.6 Sodium Potassium Chloride Carbon Dioxide Anion Gap BUN Creatinine Est GFR ( Amer) Est GFR (Non-Af Amer) Random Glucose Calcium Total Bilirubin AST ALT Alkaline Phosphatase Total Protein Albumin Globulin Albumin/Globulin Ratio Urine Color Urine Clarity Urine pH Ur Specific [place] Urine Protein Urine Glucose (UA) Urine Ketones Urine Blood Urine Nitrate Urine Bilirubin Urine Urobilinogen Ur Leukocyte Esterase Urine RBC (Auto) Urine Microscopic WBC Urine Bacteria Assessment & Plan - Assessment and Plan (Free Text) Assessment: 77 year old undomiciled male with a pmhx of rectal adenocarcinoma, emile-rectal mass, right inguinal hernias, chronic anemia, and BPH admitted for perirectal abscess and VRE urinary tract infection. 1) VRE Urinary Tract Infection -UA shows small blood, leukocyte large, urine rbc 14, urine WBC 95 -Urine cx done on 04/09/18 which shows VRE, sensitive to linezolid -Received one dose of linezolid in ED -ID recommendation appreciated -Continue linezolid 600 mg IVPB Q12 2) Fistula/colostomy draining -s/p partial colectomy and colostomy bag -Surgery consult recommendation appreciated -Colostomy care -f/u abdomen/pelvis CT 3)Rectal Adenocarcinoma -per previous admission: Pt is homeless with no social or financial support. Getting radiation and chemotherapy treatment before surgical resection not possible, which is why surgical option was offered as alternative treatment given his situation -Surgery on board -f/u abd/pelvic CT 4)Inguinal hernia, right -not incarcerated -Surgery on board 5)Chronic anemia -likely secondary to malignancy -Stable 6)Hx of BPH -on Flomax 7)DVT prophylaxis -scds -heparin 5000 sc q8 8)Code status -Full code
--- NOTE | 2018-04-15 14:35 | CP.PCM.CON ---
History of Present Illness - History of Present Illness History of Present Illness: Consult note for General Surgery 77M with PMHx of rectal adenocarcinoma with colostomy bag seen in ED complaining of rectal pain and difficulty/pain when urinating. Patient states that pain is present at all times. He also states that he has noticed pus coming continuously from a perianal abscess. Patient states that he has not been following up with any oncologists for his cancerous mass. He states that he has noticed a small amount of blood in his feces recently but denies diarrhea. He also mentions that he has been having trouble urinating. Denies noticing any blood in his urine. Denies any other complaints at this time. Denies any recent N/V/F/C/CP/SOB. PMHx: Rectal adenocarcinoma, BPH, emile-anal abscess Meds: Denies All: NKDA PSHx: Mucous fistula, Colostomy, Hernia repair SHx: Homeless Review of Systems - Review of Systems All systems: reviewed and no additional remarkable complaints except Review of Systems: as per HPI Past Patient History - Infectious Disease Hx of Infectious Diseases: None - Past Medical History & Family History Past Medical History?: Yes - Past Social History Smoking Status: Never Smoked - CARDIAC Hx Hypertension: No - PULMONARY Hx Respiratory Disorders: No - NEUROLOGICAL Hx Seizures: No - HEENT Hx HEENT Problems: No - RENAL Hx Chronic Kidney Disease: No - ENDOCRINE/METABOLIC Hx Endocrine Disorders: No - HEMATOLOGICAL/ONCOLOGICAL Hx Human Immunodeficiency Virus (HIV): No - INTEGUMENTARY Hx Dermatological Problems: No - MUSCULOSKELETAL/RHEUMATOLOGICAL Hx Musculoskeletal Disorders: No Hx Falls: No - GASTROINTESTINAL Hx Gastrointestinal Disorders: Yes Hx Bowel Surgery: Yes (bowel resection) Hx Colostomy: Yes (x 2) Hx Ileostomy: Yes Other/Comment: bilatera Inguinal Hernia. Rectal bleeding, rectal adenocarcinoma - GENITOURINARY/GYNECOLOGICAL Hx Sexually Transmitted Disorders: No - PSYCHIATRIC Hx Psychophysiologic Disorder: No Hx Substance Use: No - SURGICAL HISTORY Hx Surgeries: Yes Other/Comment: colostomy - ANESTHESIA Hx Anesthesia: Yes Hx Anesthesia Reactions: No Hx Malignant Hyperthermia: No Meds Allergies/Adverse Reactions: Allergies Allergy/AdvReac Type Severity Reaction Status Date / Time No Known Allergies Allergy Verified 04/15/18 06:39 - Medications Medications: Current Medications Linezolid (Zyvox 600mg/300ml D5w) 600 mg in 300 mls @ 300 mls/hr IVPB Q12 TAYLA PRN Reason: Protocol Physical Exam - Constitutional Appears: Non-toxic, No Acute Distress, Unkempt - Head Exam Head Exam: ATRAUMATIC, NORMOCEPHALIC - Eye Exam Eye Exam: EOMI, PERRL - ENT Exam ENT Exam: Mucous Membranes Moist, Normal Exam - Neck Exam Neck exam: Positive for: Full Rom. Negative for: Tenderness - Respiratory Exam Respiratory Exam: NORMAL BREATHING PATTERN. absent: Respiratory Distress - GI/Abdominal Exam Additional comments: Colostomy bag noted to be in place with serosanguinous fluid noted - Rectal Exam Additional comments: Left sided perirectal abscess noted with POP No purulent drainage noted - Extremities Exam Extremities exam: Positive for: normal capillary refill, normal inspection - Back Exam Back exam: absent: CVA tenderness (L), CVA tenderness (R) - Neurological Exam Neurological exam: Alert, Oriented x3 - Psychiatric Exam Psychiatric exam: Normal Affect, Normal Mood Results - Vital Signs Recent Vital Signs: Last Vital Signs Temp 98.0 F 04/15/18 13:56 Pulse 56 L 04/15/18 13:56 Resp 18 04/15/18 13:56 BP 160/78 H 04/15/18 13:56 Pulse Ox 100 04/15/18 13:56 - Labs Result Diagrams: 04/15/18 10:30 04/15/18 10:30 Labs: Laboratory Results - last 24 hr 04/15/18 04/15/18 04/15/18 09:25 10:30 10:30 WBC 6.5 RBC 3.48 L Hgb 10.1 L Hct 30.4 L MCV 87.3 MCH 29.0 MCHC 33.2 RDW 16.2 H Plt Count 281 MPV 7.9 Neut % (Auto) 78.7 H Lymph % (Auto) 12.0 L [place] % (Auto) 5.4 Eos % (Auto) 3.3 Baso % (Auto) 0.6 Neut # (Auto) 5.1 Lymph # (Auto) 0.8 L [place] # (Auto) 0.4 Eos # (Auto) 0.2 Baso # (Auto) 0.0 PT INR APTT Sodium 145 Potassium 3.6 Chloride 106 Carbon Dioxide 25 Anion Gap 18 BUN 20 Creatinine 1.1 Est GFR ( Amer) > 60 Est GFR (Non-Af Amer) > 60 Random Glucose 94 Calcium 8.7 Total Bilirubin 0.4 AST 14 L D ALT 22 Alkaline Phosphatase 67 Total Protein 6.6 Albumin 3.2 L Globulin 3.4 Albumin/Globulin Ratio 0.9 L Urine Color Straw Urine Clarity Slighty-cloudy Urine pH 6.0 Ur Specific [place] 1.006 Urine Protein Negative Urine Glucose (UA) Neg Urine Ketones Negative Urine Blood Small Urine Nitrate Negative Urine Bilirubin Negative Urine Urobilinogen 0.2-1.0 Ur Leukocyte Esterase Large Urine RBC (Auto) 14 H Urine Microscopic WBC 95 H Urine Bacteria Rare 04/15/18 10:30 WBC RBC Hgb Hct MCV MCH MCHC RDW Plt Count MPV Neut % (Auto) Lymph % (Auto) [place] % (Auto) Eos % (Auto) Baso % (Auto) Neut # (Auto) Lymph # (Auto) [place] # (Auto) Eos # (Auto) Baso # (Auto) PT 11.2 INR 1.0 APTT 27.6 Sodium Potassium Chloride Carbon Dioxide Anion Gap BUN Creatinine Est GFR ( Amer) Est GFR (Non-Af Amer) Random Glucose Calcium Total Bilirubin AST ALT Alkaline Phosphatase Total Protein Albumin Globulin Albumin/Globulin Ratio Urine Color Urine Clarity Urine pH Ur Specific [place] Urine Protein Urine Glucose (UA) Urine Ketones Urine Blood Urine Nitrate Urine Bilirubin Urine Urobilinogen Ur Leukocyte Esterase Urine RBC (Auto) Urine Microscopic WBC Urine Bacteria Assessment & Plan - Assessment and Plan (Free Text) Assessment: 77M with PMHx adenocarcinoma, perirectal abscess, UTI, seen complaining of pain/ difficulty when urinating and painful perirectal abscess with purulent drainage as well as rectal mass Plan: Afebrile, absent leukocytosis Abx CT abd/pelvis with IV contrast and rectal contrast Possible exam under anesthesia with sigmoidostomy for evaluation of abscess and rectal mass Will continue to follow - Date & Time Date: 04/15/18 Time: 15:02
--- NOTE | 2018-04-15 15:21 | CARD ---
APPROVED REPORT EKG Measurement Heart [id number] <Conclusion> Normal sinus rhythm Normal ECG
[2018-04-15] MEDS ORDERED: Iohexol 300 100 ML IJ ONE (15:25)
[2018-04-15] MEDS ORDERED: Sodium Chloride 0.9% 50 ML IV ONE (15:26)
[2018-04-15] MEDS ORDERED: Iohexol 240 (50 ml) ONE (15:28)
[2018-04-15] MEDS ORDERED: Chlorhexidine Gluconate 1 APPL/PKT TP ONE (15:47)
--- NOTE | 2018-04-15 17:26 | CT ---
PROCEDURE: CT Abdomen and Pelvis with contrast HISTORY: rectal abscess and rectal mass COMPARISON: Abdomen pelvis CT examination without contrast 03/31/2018. TECHNIQUE: Following the intravenous administration of iodinated contrast material, a CT examination of the abdomen and pelvis performed from the domes of the diaphragms to the symphysis pubis with reformatted datasets provided not only axial but also sagittal and coronal planes. Oral contrast was not administered as per referring physician request. Contrast dose: Omnipaque 300, 95 cc Rectal contrast was not given as the patient removed the rectal tube on separate occasions prior to this CT being performed. Radiation dose: Total exam DLP = 333.22 mGy-cm. This CT exam was performed using one or more of the following dose reduction techniques: Automated exposure control, adjustment of the mA and/or kV according to patient size, and/or use of iterative reconstruction technique. FINDINGS: LOWER THORAX: Stable cardiomegaly. No pleural or pericardial effusion. LIVER: Unremarkable. No gross lesion or ductal dilatation. GALLBLADDER AND BILE DUCTS: Unremarkable. PANCREAS: Unremarkable. No gross lesion or ductal dilatation. SPLEEN: Unremarkable. ADRENALS: Unremarkable. No mass. KIDNEYS AND URETERS: Gross bilateral hydronephrosis has increased with this distended irregularly thickened urinary bladder appreciated, particularly at its base. Consider cystitis neoplasm obstructing the distal bilateral ureter once again. An exophytic lower pole right renal cyst measures 12 cm size with this a potentially altered by right hydronephrosis in the interval. Prior measurement was 10 cm. No radiodense urolithiasis bilaterally. VASCULATURE: Unremarkable. No aortic aneurysm. BOWEL: Left lower quadrant colostomy reiterated as well as a mucous fistula toward the midline inferior anterior abdomen wall. A small right inguinal hernia is reiterated containing short segment of large bowel without incarceration. Developing left inguinal hernia contains only fat at this time once again. Markedly irregularly thickened rectum is identified with a regular perirectal fatty changes toward the inferior rectum circumferentially noted. Grossly abnormal thickening of the medial upper buttocks extending to the perianal space is suspicious for phlegmon or extension of neoplasm here. No emphysema soft tissue changes are seen to reflect a definite abscess, which is not favored. Further clinical correlation is nevertheless required. The patient is amenable to rectal tube in the future they would be happy to repeat a CT through the pelvis following rectal tube placement and rectal or contrast administration. APPENDIX: Normal appendix. PERITONEUM: Unremarkable. No free fluid. No free air. LYMPH NODES: Unremarkable. No enlarged lymph nodes. BLADDER: Please see renal and ureter section above. REPRODUCTIVE: Enlarged prostate gland is reiterated. BONES: No acute fracture. OTHER FINDINGS: None. IMPRESSION: Abnormal hyperdense changes seen related to an irregularly thickened rectum suspicious for neoplasm with extension the left pair re- rectal/perianal/medial left buttock soft tissues. Abscess is not favored though not completely excluded here. No emphysematous changes are related or definitive fluid collection. Unfortunately, the patient able the tolerate rectal tube placement and bold rectal tube prior CT being performed and preferred for the technologist to not reinsert the tube. Attempted re- imaging the pelvis follow rectal tube insertion and instillation of water-soluble contrast material can be performed when the patient is more amenable. Gross bilateral hydronephrosis has increased potentially is a function of cystitis or neoplastic urinary bladder findings. Clinically correlate further. 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
[2018-04-15] MEDS: Linezolid 600 mg in D5W 300 ml 600 MG/300 ML BAG IVPB SCH (21:17)
--- NOTE | 2018-04-16 07:06 | CP.PCM.PN ---
Subjective - Date & Time of Evaluation Date of Evaluation: 04/16/18 Time of Evaluation: 07:30 - Subjective Subjective: Pt seen and examined at bedside this morning. Reports emile-rectal discharge and discharge from colostomy tubes. Denies dysuria, hematuria, fever, chills, nausea , vomiting, flank pain, chest pain, dyspnea or cough. Pt is tolerating PO. Denies any other complaints. Objective - Vital Signs/Intake and Output Vital Signs (last 24 hours): Temp Pulse Resp BP Pulse Ox 98.9 F 64 18 125/65 97 04/16/18 05:25 04/16/18 05:25 04/16/18 05:25 04/16/18 05:25 04/16/18 05:25 - Medications Medications: Current Medications Heparin Sodium (Porcine) (Heparin) 5,000 units SC Q8 TAYLA PRN Reason: Protocol Last Admin: 04/16/18 00:50 Dose: 5,000 units Linezolid (Zyvox 600mg/300ml D5w) 600 mg in 300 mls @ 300 mls/hr IVPB Q12 TAYLA PRN Reason: Protocol Last Admin: 04/15/18 21:17 Dose: 300 mls/hr Tamsulosin HCl (Flomax) 0.4 mg PO DAILY TAYLA - Labs Labs: 04/15/18 10:30 04/15/18 10:30 PT 11.2 Seconds (9.8-13.1) 04/15/18 10:30 INR 1.0 (0.9-1.2) 04/15/18 10:30 APTT 27.6 Seconds (25.6-37.1) 04/15/18 10:30 - Additional Findings Additional findings: - Constitutional Appears: No Acute Distress - Head Exam Head Exam: ATRAUMATIC, NORMAL INSPECTION - Eye Exam Eye Exam: EOMI, Normal appearance - ENT Exam ENT Exam: Mucous Membranes Moist, Normal Oropharynx - Respiratory Exam Respiratory Exam: Clear to Auscultation Bilateral, NORMAL BREATHING PATTERN. absent: Rales, Rhonchi, Wheezes - Cardiovascular Exam Cardiovascular Exam: REGULAR RHYTHM, RRR, +S1, +S2 - GI/Abdominal Exam GI & Abdominal Exam: Hernia (Right inguinal ), Normal Bowel Sounds, Soft Additional comments: two colostomy bag noted with serosanguinous fluid with possible leakage. - Rectal Exam Additional comments: Mild tenderness on perirectal abscess on left buttock with no active draining seen. - Extremities Exam Extremities exam: Positive for: normal inspection. Negative for: calf tenderness, pedal edema - Back Exam Back exam: absent: CVA tenderness (L), CVA tenderness (R) - Neurological Exam Neurological exam: Alert, Oriented x3 - Psychiatric Exam Psychiatric exam: Normal Affect, Normal Mood Assessment and Plan - Assessment and Plan (Free Text) Assessment: 77 year old undomiciled male with a pmhx of rectal adenocarcinoma, emile-rectal mass, right inguinal hernias, chronic anemia, and BPH admitted for perirectal abscess and VRE urinary tract infection. 1) VRE Urinary Tract Infection -UA shows small blood, leukocyte large, urine rbc 14, urine WBC 95 -Urine cx done on 04/09/18 which shows VRE, sensitive to linezolid -Received one dose of linezolid in ED -ID recommendation appreciated -Continue linezolid 600 mg IVPB Q12 -Urine cx on 04/15/18: multiple species, probable contamination. -F/U repeat urine c&s 2) Fistula/colostomy draining -s/p partial colectomy and colostomy bag -Surgery consult recommendation appreciated -Colostomy care 3)Rectal Adenocarcinoma with perirectal abscess -per previous admission: Pt is homeless with no social or financial support. Getting radiation and chemotherapy treatment before surgical resection not possible, which is why surgical option was offered as alternative treatment given his situation -Abd/pelvic CT on 04/15/18: IMPRESSION: abnormal hyperdense changes seen related to an irregularly thickened rectum suspicious for neoplasm with extension the left emile rectal/perianal/medical left buttock soft tissues. Abscess is not favored though not completely excluded here. No emphysematous changes are related or definitive fluid collection. Gross bilateral hydronephrosis has increased potentially is a function of cystitis or neoplastic urinary bladder findings. 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 -F/u surgery recommendation 4)Inguinal hernia, right -not incarcerated -Surgery on board 5) B/L hydronephrosis on CT -Afebrile, stable vs -f/u outpatient urology 6)Chronic anemia -likely secondary to malignancy -Stable 7)Hx of BPH -on Flomax 8)DVT prophylaxis -scds -heparin 5000 sc q8 9)Code status -Full code
--- NOTE | 2018-04-16 08:52 | CP.PCM.PN ---
Subjective - Date & Time of Evaluation Date of Evaluation: 04/16/18 Time of Evaluation: 08:50 - Subjective Subjective: General Surgery Progress Note 77M seen in bed this AM for perianal abscess, rectal adenocarcinoma. Patient states that he is still experiencing pain to perianal abscess. Denies any acute overnight events. Denies any recent N/V/F/C/CP/SOB Objective - Vital Signs/Intake and Output Vital Signs (last 24 hours): Temp Pulse Resp BP Pulse Ox 98.1 F 65 18 155/83 H 97 04/16/18 07:45 04/16/18 07:45 04/16/18 07:45 04/16/18 07:45 04/16/18 07:45 - Medications Medications: Current Medications Heparin Sodium (Porcine) (Heparin) 5,000 units SC Q8 TAYLA PRN Reason: Protocol Last Admin: 04/16/18 00:50 Dose: 5,000 units Linezolid (Zyvox 600mg/300ml D5w) 600 mg in 300 mls @ 300 mls/hr IVPB Q12 TAYLA PRN Reason: Protocol Last Admin: 04/15/18 21:17 Dose: 300 mls/hr Tamsulosin HCl (Flomax) 0.4 mg PO DAILY TAYLA - Labs Labs: 04/15/18 10:30 04/15/18 10:30 PT 11.2 Seconds (9.8-13.1) 04/15/18 10:30 INR 1.0 (0.9-1.2) 04/15/18 10:30 APTT 27.6 Seconds (25.6-37.1) 04/15/18 10:30 - Constitutional Appears: Well, Non-toxic, No Acute Distress - Head Exam Head Exam: ATRAUMATIC, NORMOCEPHALIC - GI/Abdominal Exam Additional comments: Colostomy bag noted to be in place - Rectal Exam Additional comments: Tenderness with palpation to perianal abscess No active drainage noted from abscess site Site is indurated with no other gross clinical signs of infection noted - Neurological Exam Neurological Exam: Alert, Awake, Oriented x3 - Psychiatric Exam Psychiatric exam: Normal Affect, Normal Mood Assessment and Plan - Assessment and Plan (Free Text) Assessment: 77M seen in bed this AM for perianal abscess, rectal adenocarcinoma Plan: Afebrile, absent leukocytosis Abx Anticoags Abd/Pelvis CT results reviewed Pt for possible sigmoid exam under anesthesia Plan for OR with biopsy of perianal abscess tissue to determine if cancerous F/u further recs per Dr. Tyler
[2018-04-16] MEDS: Linezolid 600 mg in D5W 300 ml 600 MG/300 ML BAG IVPB SCH ×3 (09:46→21:43)
--- NOTE | 2018-04-16 11:40 | CP.PCM.PN ---
Subjective - Date & Time of Evaluation Date of Evaluation: 04/16/18 Time of Evaluation: 08:00 - Subjective Subjective: appears comfortable NAD afebrile alert Objective - Vital Signs/Intake and Output Vital Signs (last 24 hours): Temp Pulse Resp BP Pulse Ox 98.1 F 65 18 155/83 H 97 04/16/18 07:45 04/16/18 07:45 04/16/18 07:45 04/16/18 07:45 04/16/18 07:45 - Medications Medications: Current Medications Heparin Sodium (Porcine) (Heparin) 5,000 units SC Q8 [facility] PRN Reason: Protocol Last Admin: 04/16/18 09:14 Dose: 5,000 units Linezolid (Zyvox 600mg/300ml D5w) 600 mg in 300 mls @ 300 mls/hr IVPB Q12 [facility] PRN Reason: Protocol Last Admin: 04/16/18 09:46 Dose: 300 mls/hr Tamsulosin HCl (Flomax) 0.4 mg PO DAILY [facility] Last Admin: 04/16/18 09:14 Dose: 0.4 mg - Labs Labs: 04/15/18 10:30 04/15/18 10:30 PT 11.2 Seconds (9.8-13.1) 04/15/18 10:30 INR 1.0 (0.9-1.2) 04/15/18 10:30 APTT 27.6 Seconds (25.6-37.1) 04/15/18 10:30 - Constitutional Appears: Non-toxic, Chronically Ill - Head Exam Head Exam: NORMOCEPHALIC - Eye Exam Eye Exam: PERRL - ENT Exam ENT Exam: Mucous Membranes Dry - Neck Exam Neck Exam: absent: Lymphadenopathy - Respiratory Exam Respiratory Exam: Decreased Breath Sounds - Cardiovascular Exam Cardiovascular Exam: REGULAR RHYTHM - GI/Abdominal Exam GI & Abdominal Exam: Distended, Soft. absent: Tenderness - Rectal Exam Rectal Exam: Deferred - Exam Exam: NORMAL INSPECTION - Extremities Exam Extremities Exam: absent: Pedal Edema - Back Exam Back Exam: absent: CVA tenderness (L), CVA tenderness (R) - Neurological Exam Neurological Exam: Alert, Awake, Oriented x3 - Psychiatric Exam Psychiatric exam: Normal Mood - Skin Skin Exam: Dry Assessment and Plan (1) VRE (vancomycin resistant enterococcus) culture positive Status: Acute (2) VRE (vancomycin resistant enterococcus) culture positive Status: Acute (3) Abdominal pain Status: Acute
[2018-04-17 05:41] LABS: HEMOGLOBIN 9.8 g/dL (12.0-18.0); MEAN CELL VOLUME 87.4 fl (80.0-94.0); MEAN CORPUSCULAR HEMOGLOBIN 28.8 pg (27.0-31.0); RBC 3.41 Mil/uL (4.40-5.90); RED CELL DISTRIBUTION WIDTH 16.2 % (11.5-14.5)
[2018-04-17 05:48] LABS: CALCIUM 8.2 mg/dL (8.4-10.2)
--- NOTE | 2018-04-17 07:11 | CP.PCM.PN ---
Subjective - Date & Time of Evaluation Date of Evaluation: 04/17/18 Time of Evaluation: 07:40 - Subjective Subjective: Pt seen and examined this morning. No acute overnight events. Reports pain in the gluteal abscess and some discharge. Denies dysuria, hematuria, fever, chills, nausea, vomiting, flank pain, chest pain, dyspnea or cough. Pt is tolerating PO. Colostomy bags intact. Denies any other complaints. Objective - Vital Signs/Intake and Output Vital Signs (last 24 hours): Temp Pulse Resp BP Pulse Ox 98.9 F 60 18 130/74 98 04/17/18 05:21 04/17/18 05:21 04/17/18 05:21 04/17/18 05:21 04/17/18 05:21 - Medications Medications: Current Medications Heparin Sodium (Porcine) (Heparin) 5,000 units SC Q8 [facility] PRN Reason: Protocol Last Admin: 04/17/18 01:02 Dose: 5,000 units Linezolid (Zyvox 600mg/300ml D5w) 600 mg in 300 mls @ 300 mls/hr IVPB Q12 [facility] PRN Reason: Protocol Last Admin: 04/16/18 21:43 Dose: 300 mls/hr Tamsulosin HCl (Flomax) 0.4 mg PO DAILY [facility] Last Admin: 04/16/18 09:14 Dose: 0.4 mg - Labs Labs: 04/17/18 05:10 04/17/18 05:10 PT 11.2 Seconds (9.8-13.1) 04/15/18 10:30 INR 1.0 (0.9-1.2) 04/15/18 10:30 APTT 27.6 Seconds (25.6-37.1) 04/15/18 10:30 - Additional Findings Additional findings: - Constitutional Appears: No Acute Distress - Head Exam Head Exam: ATRAUMATIC, NORMAL INSPECTION - Eye Exam Eye Exam: EOMI, Normal appearance - ENT Exam ENT Exam: Mucous Membranes Moist, Normal Oropharynx - Respiratory Exam Respiratory Exam: Clear to Auscultation Bilateral, NORMAL BREATHING PATTERN. absent: Rales, Rhonchi, Wheezes - Cardiovascular Exam Cardiovascular Exam: REGULAR RHYTHM, RRR, +S1, +S2 - GI/Abdominal Exam GI & Abdominal Exam: Hernia (Right inguinal ), Normal Bowel Sounds, Soft Additional comments: two colostomy bag noted with serosanguinous fluids and stools present. - Rectal Exam Additional comments: Moderate tenderness on perirectal abscess on left buttock with no active draining seen. - Extremities Exam Extremities exam: Positive for: normal inspection. Negative for: calf tenderness, pedal edema - Back Exam Back exam: absent: CVA tenderness (L), CVA tenderness (R) - Neurological Exam Neurological exam: Alert, Oriented x3 - Psychiatric Exam Psychiatric exam: Normal Affect, Normal Mood Assessment and Plan - Assessment and Plan (Free Text) Assessment: 77 year old undomiciled male with a pmhx of rectal adenocarcinoma, emile-rectal mass, right inguinal hernias, chronic anemia, and BPH admitted for perirectal abscess and VRE urinary tract infection. 1) VRE Urinary Tract Infection -UA shows small blood, leukocyte large, urine rbc 14, urine WBC 95 -Urine cx done on 04/09/18 which shows VRE, sensitive to linezolid -Received one dose of linezolid in ED -ID recommendation appreciated -Continue linezolid 600 mg IVPB Q12 (day 3) -Urine cx on 04/15/18: multiple species, probable contamination. -F/U repeat urine c&s 2)Rectal Adenocarcinoma with perirectal abscess -per previous admission: Pt is homeless with no social or financial support. Getting radiation and chemotherapy treatment before surgical resection not possible, which is why surgical option was offered as alternative treatment given his situation -Abd/pelvic CT on 04/15/18: IMPRESSION: abnormal hyperdense changes seen related to an irregularly thickened rectum suspicious for neoplasm with extension the left emile rectal/perianal/medical left buttock soft tissues. Abscess is not favored though not completely excluded here. No emphysematous changes are related or definitive fluid collection. Gross bilateral hydronephrosis has increased potentially is a function of cystitis or neoplastic urinary bladder findings. 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 -F/u surgery recommendation: plan for OR with biopsy of perianal abscess tissue to determine if cancerous 3) Fistula/colostomy draining -s/p partial colectomy and colostomy bag -Surgery on board -Wound care on board for colostomy care 4)Inguinal hernia, right -not incarcerated -Surgery on board 5) B/L hydronephrosis on CT -Afebrile, stable vs -F/U urology recommendation 6)Chronic anemia -likely secondary to malignancy -Stable 7) Hypokalemia -K: 3.4 -Kcl 20 meq po -f/u BMP tomorrow 8)Hx of BPH -on Flomax 9)DVT prophylaxis -scds -heparin 5000 sc q8 10)Code status -Full code
[2018-04-17] MEDS ORDERED: Potassium Chloride 20 mEq ER Tab PO ONE (09:17)
[2018-04-17] MEDS: Linezolid 600 mg in D5W 300 ml 600 MG/300 ML BAG IVPB SCH ×3 (09:44→21:23)
--- NOTE | 2018-04-17 10:51 | CP.PCM.PN ---
Subjective - Date & Time of Evaluation Date of Evaluation: 04/17/18 Time of Evaluation: 10:43 - Subjective Subjective: 77 year old home. Hosayless hisp male admittes to [facility] [place] because of Perineal abcess. Pt has double barreled colostomy.sp resection of colon adenoca seversal mos ago.Pt is not fully oriented(thinks he had his colostomy yesterday) Ct shows bilat hydro. A [place] ca colon ,pelvic abcess. Suggest Get detailed info about grade of tumor,stage and what oncological treatment has occured and a estimation of prognosis to determine if ureteral stenting is warrented, treat abcess. A responsible person must be located to sign consent if stent insertion is warented Hosrufina Objective - Vital Signs/Intake and Output Vital Signs (last 24 hours): Temp Pulse Resp BP Pulse Ox 98.6 F 61 20 131/70 96 04/17/18 08:05 04/17/18 08:05 04/17/18 08:05 04/17/18 08:05 04/17/18 08:05 - Medications Medications: Current Medications Heparin Sodium (Porcine) (Heparin) 5,000 units SC Q8 [facility] PRN Reason: Protocol Last Admin: 04/17/18 10:03 Dose: Not Given Linezolid (Zyvox 600mg/300ml D5w) 600 mg in 300 mls @ 300 mls/hr IVPB Q12 [facility] PRN Reason: Protocol Last Admin: 04/17/18 09:45 Dose: 300 mls/hr Tamsulosin HCl (Flomax) 0.4 mg PO DAILY [facility] Last Admin: 04/17/18 09:46 Dose: 0.4 mg - Labs Labs: 04/17/18 05:10 04/17/18 05:10 PT 11.2 Seconds (9.8-13.1) 04/15/18 10:30 INR 1.0 (0.9-1.2) 04/15/18 10:30 APTT 27.6 Seconds (25.6-37.1) 04/15/18 10:30
--- NOTE | 2018-04-17 11:09 | CP.PCM.PN ---
Subjective - Date & Time of Evaluation Date of Evaluation: 04/17/18 Time of Evaluation: 11:07 - Subjective Subjective: General Surgery Progress Note 77M seen in bed this AM for perianal abscess, rectal adenocarcinoma. Patient states that he is still experiencing pain to perianal abscess. Denies any acute overnight events. Denies any recent N/V/F/C/CP/SOB Objective - Vital Signs/Intake and Output Vital Signs (last 24 hours): Temp Pulse Resp BP Pulse Ox 98.6 F 61 20 131/70 96 04/17/18 08:05 04/17/18 08:05 04/17/18 08:05 04/17/18 08:05 04/17/18 08:05 - Medications Medications: Current Medications Heparin Sodium (Porcine) (Heparin) 5,000 units SC Q8 [facility] PRN Reason: Protocol Last Admin: 04/17/18 10:03 Dose: Not Given Linezolid (Zyvox 600mg/300ml D5w) 600 mg in 300 mls @ 300 mls/hr IVPB Q12 [facility] PRN Reason: Protocol Last Admin: 04/17/18 09:45 Dose: 300 mls/hr Tamsulosin HCl (Flomax) 0.4 mg PO DAILY [facility] Last Admin: 04/17/18 09:46 Dose: 0.4 mg - Labs Labs: 04/17/18 05:10 04/17/18 05:10 PT 11.2 Seconds (9.8-13.1) 04/15/18 10:30 INR 1.0 (0.9-1.2) 04/15/18 10:30 APTT 27.6 Seconds (25.6-37.1) 04/15/18 10:30 - Constitutional Appears: Well, Non-toxic, No Acute Distress - Head Exam Head Exam: ATRAUMATIC, NORMOCEPHALIC - Rectal Exam Additional comments: Continued tenderness with palpation to perianal abscess No active drainage noted from abscess site, minimal malodor Site is indurated with no other gross clinical signs of infection noted - Neurological Exam Neurological Exam: Alert, Awake, Oriented x3 - Psychiatric Exam Psychiatric exam: Normal Affect, Normal Mood Assessment and Plan - Assessment and Plan (Free Text) Assessment: 77M seen in bed this AM for perianal abscess, rectal adenocarcinoma Plan: Afebrile, absent leukocytosis Abx Anticoags Patient for rectal exam under anesthesia on 04/22/18 to r/o fistulas/determine extent/size of tumor with biopsy of perianal abscess and I and D Dr. Amy franklin seen and appreciated Consider dual operation with urology
--- NOTE | 2018-04-17 13:47 | CP.PCM.PN ---
Subjective - Date & Time of Evaluation Date of Evaluation: 04/17/18 Time of Evaluation: 08:00 - Subjective Subjective: afeb going for i and d Objective - Vital Signs/Intake and Output Vital Signs (last 24 hours): Temp Pulse Resp BP Pulse Ox 98.2 F 62 20 130/66 96 04/17/18 11:59 04/17/18 11:59 04/17/18 11:59 04/17/18 11:59 04/17/18 11:59 - Medications Medications: Current Medications Heparin Sodium (Porcine) (Heparin) 5,000 units SC Q8 [facility] PRN Reason: Protocol Last Admin: 04/17/18 10:03 Dose: Not Given Linezolid (Zyvox 600mg/300ml D5w) 600 mg in 300 mls @ 300 mls/hr IVPB Q12 [facility] PRN Reason: Protocol Last Admin: 04/17/18 09:45 Dose: 300 mls/hr Tamsulosin HCl (Flomax) 0.4 mg PO DAILY [facility] Last Admin: 04/17/18 09:46 Dose: 0.4 mg - Labs Labs: 04/17/18 05:10 04/17/18 05:10 PT 11.2 Seconds (9.8-13.1) 04/15/18 10:30 INR 1.0 (0.9-1.2) 04/15/18 10:30 APTT 27.6 Seconds (25.6-37.1) 04/15/18 10:30 - Constitutional Appears: Chronically Ill - Head Exam Head Exam: ATRAUMATIC - Eye Exam Eye Exam: absent: Scleral icterus - ENT Exam ENT Exam: Mucous Membranes Dry - Neck Exam Neck Exam: absent: Lymphadenopathy - Respiratory Exam Respiratory Exam: Decreased Breath Sounds - Cardiovascular Exam Cardiovascular Exam: REGULAR RHYTHM - GI/Abdominal Exam GI & Abdominal Exam: Distended Additional comments: colostomy/ileostomy + - Exam Exam: NORMAL INSPECTION - Extremities Exam Extremities Exam: Full ROM Assessment and Plan (1) VRE (vancomycin resistant enterococcus) culture positive Status: Acute (2) VRE (vancomycin resistant enterococcus) culture positive Status: Acute (3) Abdominal pain Status: Acute
--- NOTE | 2018-04-18 06:51 | CP.PCM.PN ---
Subjective - Date & Time of Evaluation Date of Evaluation: 04/18/18 Time of Evaluation: 07:15 - Subjective Subjective: Pt seen and examined at bedside this morning. Still reports some pain in the gluteal abscess and minimal drainage. Tolerating po diet well. Denies dysuria, hematuria, fever, chills, nausea, vomiting, flank pain, chest pain, dyspnea or cough. Intact colostomy bags. Denies any other complaints. Objective - Vital Signs/Intake and Output Vital Signs (last 24 hours): Temp Pulse Resp BP Pulse Ox 98.9 F 59 L 18 134/72 98 04/18/18 05:16 04/18/18 05:16 04/18/18 05:16 04/18/18 05:16 04/18/18 05:16 - Medications Medications: Current Medications Heparin Sodium (Porcine) (Heparin) 5,000 units SC Q8 [facility] PRN Reason: Protocol Last Admin: 04/18/18 00:41 Dose: 5,000 units Linezolid (Zyvox 600mg/300ml D5w) 600 mg in 300 mls @ 300 mls/hr IVPB Q12 [facility] PRN Reason: Protocol Last Admin: 04/17/18 21:23 Dose: 300 mls/hr Tamsulosin HCl (Flomax) 0.4 mg PO DAILY [facility] Last Admin: 04/17/18 09:46 Dose: 0.4 mg - Labs Labs: 04/17/18 05:10 04/17/18 05:10 PT 11.2 Seconds (9.8-13.1) 04/15/18 10:30 INR 1.0 (0.9-1.2) 04/15/18 10:30 APTT 27.6 Seconds (25.6-37.1) 04/15/18 10:30 - Additional Findings Additional findings: - Constitutional Appears: No Acute Distress - Head Exam Head Exam: ATRAUMATIC, NORMAL INSPECTION - Eye Exam Eye Exam: EOMI, Normal appearance - ENT Exam ENT Exam: Mucous Membranes Moist - Respiratory Exam Respiratory Exam: Clear to Auscultation Bilateral, NORMAL BREATHING PATTERN. absent: Rales, Rhonchi, Wheezes - Cardiovascular Exam Cardiovascular Exam: REGULAR RHYTHM, RRR, +S1, +S2 - GI/Abdominal Exam GI & Abdominal Exam: +right inguinal Hernia, Normal Bowel Sounds, Soft Additional comments: two colostomy bag noted with serosanguinous fluids and stools present. - Rectal Exam Additional comments: Mild tenderness on perirectal abscess on left buttock with no active draining seen. - Extremities Exam Extremities exam: Positive for: normal inspection. Negative for: calf tenderness, pedal edema - Neurological Exam Neurological exam: Alert, Oriented x3 - Psychiatric Exam Psychiatric exam: Normal Affect, Normal Mood Assessment and Plan - Assessment and Plan (Free Text) Assessment: 77 year old undomiciled male with a pmhx of rectal adenocarcinoma, emile-rectal mass, right inguinal hernias, chronic anemia, and BPH admitted for perirectal abscess and VRE urinary tract infection. 1) VRE Urinary Tract Infection -UA shows small blood, leukocyte large, urine rbc 14, urine WBC 95 -Urine cx done on 04/09/18 which shows VRE, sensitive to linezolid -Continue linezolid 600 mg IVPB Q12 (day 4) -Urine cx on 04/15/18: multiple species, probable contamination. -F/U repeat urine c&s -ID on board 2)Rectal Adenocarcinoma with perirectal abscess -Per previous admission: Pt is homeless with no social or financial support. Getting radiation and chemotherapy treatment before surgical resection not possible, which is why surgical option was offered as alternative treatment given his situation -Abd/pelvic CT on 04/15/18: IMPRESSION: abnormal hyperdense changes seen related to an irregularly thickened rectum suspicious for neoplasm with extension the left emile rectal/perianal/medical left buttock soft tissues. Abscess is not favored though not completely excluded here. No emphysematous changes are related or definitive fluid collection. Gross bilateral hydronephrosis has increased potentially is a function of cystitis or neoplastic urinary bladder findings. 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 -Surgery recommendation: plant for rectal exam under anesthesia on 04/23/18 to r/ o fistulas/determine extent/size of tumor with biopsy of perianal abscess and I and D. 3) Fistula/colostomy draining -s/p partial colectomy and colostomy bag -Surgery on board -Wound care on board for colostomy care 4)Inguinal hernia, right -not incarcerated -Surgery on board 5) B/L hydronephrosis on CT -Afebrile, stable vs -F/U urology recommendation 6)Chronic anemia -likely secondary to malignancy -Stable 7) Hypokalemia -K: 3.4 on 04/17/18 -s/p Kcl 20 meq po yesterday -f/u BMP tomorrow 8)Hx of BPH -on Flomax 9)DVT prophylaxis -scds -heparin 5000 sc q8 10)Code status -Full code
--- NOTE | 2018-04-18 08:02 | CP.PCM.PN ---
Subjective - Date & Time of Evaluation Date of Evaluation: 04/18/18 Time of Evaluation: 07:59 - Subjective Subjective: Surgery Pt seen and examined. No acute events. Denies fever, nausea. Tolerating diet. Has output from stoma. Seen by Urologist Objective - Vital Signs/Intake and Output Vital Signs (last 24 hours): Temp Pulse Resp BP Pulse Ox 98.9 F 59 L 18 134/72 98 04/18/18 05:16 04/18/18 05:16 04/18/18 05:16 04/18/18 05:16 04/18/18 05:16 - Medications Medications: Current Medications Heparin Sodium (Porcine) (Heparin) 5,000 units SC Q8 [facility] PRN Reason: Protocol Last Admin: 04/18/18 00:41 Dose: 5,000 units Linezolid (Zyvox 600mg/300ml D5w) 600 mg in 300 mls @ 300 mls/hr IVPB Q12 [facility] PRN Reason: Protocol Last Admin: 04/17/18 21:23 Dose: 300 mls/hr Tamsulosin HCl (Flomax) 0.4 mg PO DAILY [facility] Last Admin: 04/17/18 09:46 Dose: 0.4 mg - Labs Labs: 04/17/18 05:10 04/17/18 05:10 PT 11.2 Seconds (9.8-13.1) 04/15/18 10:30 INR 1.0 (0.9-1.2) 04/15/18 10:30 APTT 27.6 Seconds (25.6-37.1) 04/15/18 10:30 - Constitutional Appears: No Acute Distress - Head Exam Head Exam: ATRAUMATIC, NORMAL INSPECTION, NORMOCEPHALIC - Eye Exam Eye Exam: EOMI, Normal appearance, PERRL Pupil Exam: NORMAL ACCOMODATION, PERRL - ENT Exam ENT Exam: Mucous Membranes Moist, Normal Exam - Neck Exam Neck Exam: Full ROM, Normal Inspection. absent: Lymphadenopathy - Respiratory Exam Respiratory Exam: Clear to Ausculation Bilateral, NORMAL BREATHING PATTERN - Cardiovascular Exam Cardiovascular Exam: REGULAR RHYTHM, +S1, +S2. absent: Murmur - GI/Abdominal Exam GI & Abdominal Exam: Soft, Normal Bowel Sounds. absent: Tenderness - Rectal Exam Rectal Exam: Deferred - Exam Exam: NORMAL INSPECTION - Extremities Exam Extremities Exam: Full ROM, Normal Capillary Refill, Normal Inspection. absent : Joint Swelling, Pedal Edema - Back Exam Back Exam: NORMAL INSPECTION - Neurological Exam Neurological Exam: Alert, Awake, CN II-XII Intact, Normal Gait, Oriented x3 - Psychiatric Exam Psychiatric exam: Normal Affect, Normal Mood - Skin Skin Exam: Erythema, Intact, Warm Assessment and Plan - Assessment and Plan (Free Text) Assessment: 77M for perianal abscess, rectal adenocarcinoma Plan: Afebrile, absent leukocytosis Abx Patient for rectal exam under anesthesia on 04/23/18 to r/o fistulas/determine extent/size of tumor with biopsy of perianal abscess and I and D Dr. Amy franklin seen and appreciated Consider dual operation with urology Will LIYA Young
--- NOTE | 2018-04-18 15:07 | CP.PCM.PN ---
Subjective - Date & Time of Evaluation Date of Evaluation: 04/18/18 Time of Evaluation: 15:04 - Subjective Subjective: Discussed with Dr angelo and vice president biostatistics Ricky for cysto and bilat stent inserton sunday 9:15 am please keep pt npo after midnight sunday,notify me of any changes in pts condition ThanksJerzy Reyes Objective - Vital Signs/Intake and Output Vital Signs (last 24 hours): Temp Pulse Resp BP Pulse Ox 97.7 F 67 20 114/66 100 04/18/18 12:31 04/18/18 12:31 04/18/18 12:31 04/18/18 12:31 04/18/18 12:31 - Medications Medications: Current Medications Heparin Sodium (Porcine) (Heparin) 5,000 units SC Q8 [facility] PRN Reason: Protocol Last Admin: 04/18/18 10:10 Dose: 5,000 units Linezolid (Zyvox 600mg/300ml D5w) 600 mg in 300 mls @ 300 mls/hr IVPB Q12 [facility] PRN Reason: Protocol Last Admin: 04/17/18 21:23 Dose: 300 mls/hr Tamsulosin HCl (Flomax) 0.4 mg PO DAILY [facility] Last Admin: 04/18/18 10:10 Dose: 0.4 mg - Labs Labs: 04/17/18 05:10 04/17/18 05:10 PT 11.2 Seconds (9.8-13.1) 04/15/18 10:30 INR 1.0 (0.9-1.2) 04/15/18 10:30 APTT 27.6 Seconds (25.6-37.1) 04/15/18 10:30
--- NOTE | 2018-04-18 17:19 | CP.PCM.PN ---
Subjective - Date & Time of Evaluation Date of Evaluation: 04/18/18 Time of Evaluation: 09:00 - Subjective Subjective: Schueled for cysto and bilat stent inserton sunday Objective - Vital Signs/Intake and Output Vital Signs (last 24 hours): Temp Pulse Resp BP Pulse Ox 97.5 F L 67 16 148/76 99 04/18/18 16:06 04/18/18 16:06 04/18/18 16:06 04/18/18 16:06 04/18/18 16:06 - Medications Medications: Current Medications Heparin Sodium (Porcine) (Heparin) 5,000 units SC Q8 [facility] PRN Reason: Protocol Last Admin: 04/18/18 10:10 Dose: 5,000 units Linezolid (Zyvox 600mg/300ml D5w) 600 mg in 300 mls @ 300 mls/hr IVPB Q12 [facility] PRN Reason: Protocol Last Admin: 04/17/18 21:23 Dose: 300 mls/hr Tamsulosin HCl (Flomax) 0.4 mg PO DAILY [facility] Last Admin: 04/18/18 10:10 Dose: 0.4 mg - Labs Labs: 04/17/18 05:10 04/17/18 05:10 PT 11.2 Seconds (9.8-13.1) 04/15/18 10:30 INR 1.0 (0.9-1.2) 04/15/18 10:30 APTT 27.6 Seconds (25.6-37.1) 04/15/18 10:30 - Constitutional Appears: Well - Head Exam Head Exam: ATRAUMATIC, NORMAL INSPECTION, NORMOCEPHALIC - Eye Exam Eye Exam: EOMI, Normal appearance, PERRL - Neck Exam Neck Exam: Full ROM, Normal Inspection. absent: Lymphadenopathy - Respiratory Exam Respiratory Exam: Clear to Ausculation Bilateral, NORMAL BREATHING PATTERN - Cardiovascular Exam Cardiovascular Exam: REGULAR RHYTHM, +S1, +S2. absent: Murmur - GI/Abdominal Exam GI & Abdominal Exam: Soft, Normal Bowel Sounds. absent: Tenderness Additional comments: colostomy/ileostomy - Extremities Exam Extremities Exam: Full ROM, Normal Capillary Refill, Normal Inspection. absent : Joint Swelling, Pedal Edema - Neurological Exam Neurological Exam: Alert, Awake, CN II-XII Intact, Normal Gait, Oriented x3 - Psychiatric Exam Psychiatric exam: Normal Affect, Normal Mood - Skin Skin Exam: Abrasion Assessment and Plan (1) VRE (vancomycin resistant enterococcus) culture positive Status: Acute (2) VRE (vancomycin resistant enterococcus) culture positive Status: Acute (3) Abdominal pain Status: Acute
[2018-04-18] MEDS: Linezolid 600 mg in D5W 300 ml 600 MG/300 ML BAG IVPB SCH (18:37)
[2018-04-19] MEDS: Linezolid 600 mg in D5W 300 ml 600 MG/300 ML BAG IVPB SCH ×2 (05:05→16:49)
[2018-04-19 05:45] LABS: HEMOGLOBIN 11.3 g/dL (12.0-18.0); MEAN CELL VOLUME 87.3 fl (80.0-94.0); MEAN CORPUSCULAR HEMOGLOBIN 29.2 pg (27.0-31.0); MEAN CORPUSCULAR HGB CONC 33.5 g/dL (33.0-37.0); RBC 3.86 Mil/uL (4.40-5.90); RED CELL DISTRIBUTION WIDTH 16.1 % (11.5-14.5); WHITE BLOOD COUNT 6.9 K/uL (4.8-10.8)
[2018-04-19 05:53] LABS: BLOOD UREA NITROGEN 22 mg/dl (9-20); CALCIUM 8.2 mg/dL (8.4-10.2); GFR AFRICAN-AMERICAN > 60; GFR NON-AFRICAN AMERICAN > 60
--- NOTE | 2018-04-19 07:22 | CP.PCM.PN ---
Subjective - Date & Time of Evaluation Date of Evaluation: 04/19/18 Time of Evaluation: 08:15 - Subjective Subjective: Pt seen and examined this morning. No acute overnight events. + pain in the gluteal abscess. Tolerating po diet well. Denies dysuria, hematuria, fever, chills, nausea, vomiting, flank pain, chest pain, dyspnea or cough. Intact colostomy bags with output drainage. Denies any other complaints. Objective - Vital Signs/Intake and Output Vital Signs (last 24 hours): Temp Pulse Resp BP Pulse Ox 97.8 F 57 L 18 129/68 98 04/19/18 05:04 04/19/18 05:04 04/19/18 05:04 04/19/18 05:04 04/19/18 05:04 - Medications Medications: Current Medications Heparin Sodium (Porcine) (Heparin) 5,000 units SC Q8 [facility] PRN Reason: Protocol Last Admin: 04/19/18 01:36 Dose: Not Given Linezolid (Zyvox 600mg/300ml D5w) 600 mg in 300 mls @ 300 mls/hr IVPB Q12@0500, 1700 [facility] PRN Reason: Protocol Last Admin: 04/19/18 05:05 Dose: 300 mls/hr Tamsulosin HCl (Flomax) 0.4 mg PO DAILY [facility] Last Admin: 04/18/18 10:10 Dose: 0.4 mg - Labs Labs: 04/19/18 05:00 04/19/18 05:00 PT 11.2 Seconds (9.8-13.1) 04/15/18 10:30 INR 1.0 (0.9-1.2) 04/15/18 10:30 APTT 27.6 Seconds (25.6-37.1) 04/15/18 10:30 - Additional Findings Additional findings: - Constitutional Appears: No Acute Distress - Head Exam Head Exam: ATRAUMATIC, NORMAL INSPECTION - Eye Exam Eye Exam: EOMI, Normal appearance - ENT Exam ENT Exam: Mucous Membranes Moist - Respiratory Exam Respiratory Exam: Clear to Auscultation Bilateral, NORMAL BREATHING PATTERN. absent: Rales, Rhonchi, Wheezes - Cardiovascular Exam Cardiovascular Exam: REGULAR RHYTHM, RRR, +S1, +S2 - GI/Abdominal Exam GI & Abdominal Exam: +right inguinal hernia, Normal Bowel Sounds, Soft Additional comments: two colostomy bag noted with serosanguinous fluids and stools drainage. - Rectal Exam Additional comments: + Tenderness on perirectal abscess on left buttock with no active draining seen. - Extremities Exam Extremities exam: Positive for: normal inspection. Negative for: calf tenderness, pedal edema - Neurological Exam Neurological exam: Alert, Oriented x3 - Psychiatric Exam Psychiatric exam: Normal Affect, Normal Mood Assessment and Plan - Assessment and Plan (Free Text) Assessment: 77 year old undomiciled male with a pmhx of rectal adenocarcinoma, emile-rectal mass, right inguinal hernias, chronic anemia, and BPH admitted for perirectal abscess and VRE urinary tract infection. 1)Rectal Adenocarcinoma with perirectal abscess -Per previous admission: Pt is homeless with no social or financial support. Getting radiation and chemotherapy treatment before surgical resection not possible, which is why surgical option was offered as alternative treatment given his situation -Abd/pelvic CT on 04/15/18: IMPRESSION: abnormal hyperdense changes seen related to an irregularly thickened rectum suspicious for neoplasm with extension the left emile rectal/perianal/medical left buttock soft tissues. Abscess is not favored though not completely excluded here. No emphysematous changes are related or definitive fluid collection. -Surgery recommendation: plan for rectal exam under anesthesia on 04/23/18 to r/ o fistulas/determine extent/size of tumor with biopsy of perianal abscess and I and D. 2) VRE Urinary Tract Infection -UA shows small blood, leukocyte large, urine rbc 14, urine WBC 95 -Urine cx done on 04/09/18 which shows VRE, sensitive to linezolid -Continue linezolid 600 mg IVPB Q12 (day 5) -Urine cx on 04/15/18: multiple species, probable contamination. 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 -Afebrile, stable vs -Urology recommendation: cystoscopy and B/L uterine stent on 5/29/18 6)Chronic anemia -likely secondary to malignancy -Stable 7)Hx of BPH -on Flomax 8)DVT prophylaxis -scds -heparin 5000 sc q8 9)Code status -Full code
--- NOTE | 2018-04-19 08:07 | CP.PCM.PN ---
Subjective - Date & Time of Evaluation Date of Evaluation: 04/19/18 Time of Evaluation: 08:05 - Subjective Subjective: Surgery Pt seen and examined. No acute events. Denies fever, nausea, diarrhea, CP, SOB. Stoma has output. Objective - Vital Signs/Intake and Output Vital Signs (last 24 hours): Temp Pulse Resp BP Pulse Ox 97.8 F 57 L 18 129/68 98 04/19/18 05:04 04/19/18 05:04 04/19/18 05:04 04/19/18 05:04 04/19/18 05:04 - Medications Medications: Current Medications Heparin Sodium (Porcine) (Heparin) 5,000 units SC Q8 [facility] PRN Reason: Protocol Last Admin: 04/19/18 01:36 Dose: Not Given Linezolid (Zyvox 600mg/300ml D5w) 600 mg in 300 mls @ 300 mls/hr IVPB Q12@0500, 1700 [facility] PRN Reason: Protocol Last Admin: 04/19/18 05:05 Dose: 300 mls/hr Tamsulosin HCl (Flomax) 0.4 mg PO DAILY [facility] Last Admin: 04/18/18 10:10 Dose: 0.4 mg - Labs Labs: 04/19/18 05:00 04/19/18 05:00 PT 11.2 Seconds (9.8-13.1) 04/15/18 10:30 INR 1.0 (0.9-1.2) 04/15/18 10:30 APTT 27.6 Seconds (25.6-37.1) 04/15/18 10:30 - Constitutional Appears: No Acute Distress - Head Exam Head Exam: ATRAUMATIC, NORMAL INSPECTION, NORMOCEPHALIC - Eye Exam Eye Exam: EOMI, Normal appearance, PERRL Pupil Exam: NORMAL ACCOMODATION, PERRL - ENT Exam ENT Exam: Mucous Membranes Moist, Normal Exam - Neck Exam Neck Exam: Full ROM, Normal Inspection. absent: Lymphadenopathy - Respiratory Exam Respiratory Exam: Clear to Ausculation Bilateral, NORMAL BREATHING PATTERN - Cardiovascular Exam Cardiovascular Exam: REGULAR RHYTHM, +S1, +S2. absent: Murmur - GI/Abdominal Exam GI & Abdominal Exam: Soft, Normal Bowel Sounds. absent: Distended, Tenderness Additional comments: COlostomy in place: output noted. Mucous fistula has SS minimal output. - Rectal Exam Rectal Exam: absent: Black Stool, Bloody Stool, Hemorrhoids, Fecal Impaction, NORMAL INSPECTION Additional comments: [id number] palpable non mobile lesion. Mild erythema. TTP - Exam Exam: NORMAL INSPECTION - Extremities Exam Extremities Exam: Full ROM, Normal Inspection - Back Exam Back Exam: NORMAL INSPECTION - Neurological Exam Neurological Exam: Alert, Awake, CN II-XII Intact, Normal Gait, Oriented x3 - Psychiatric Exam Psychiatric exam: Normal Affect, Normal Mood - Skin Skin Exam: Dry, Erythema, Intact, Normal Color, Warm Assessment and Plan - Assessment and Plan (Free Text) Assessment: 77M for perianal abscess/lesion , rectal adenocarcinoma Plan: Afebrile, absent leukocytosis Abx Patient for rectal exam under anesthesia on 04/23/18 to r/o fistulas/determine extent/size of tumor with biopsy of perianal abscess and I and D As well as cysto w b/l stent with urologist NPO after midnight on Sun LIYA Young
--- NOTE | 2018-04-19 13:48 | CP.PCM.PN ---
Subjective - Date & Time of Evaluation Date of Evaluation: 04/19/18 Time of Evaluation: 10:00 - Subjective Subjective: no new cultures s/p I and D Objective - Vital Signs/Intake and Output Vital Signs (last 24 hours): Temp Pulse Resp BP Pulse Ox 97.5 F L 60 20 122/74 99 04/19/18 12:27 04/19/18 12:27 04/19/18 12:27 04/19/18 12:27 04/19/18 12:27 - Medications Medications: Current Medications Heparin Sodium (Porcine) (Heparin) 5,000 units SC Q8 [facility] PRN Reason: Protocol Last Admin: 04/19/18 10:35 Dose: 5,000 units Linezolid (Zyvox 600mg/300ml D5w) 600 mg in 300 mls @ 300 mls/hr IVPB Q12@0500, 1700 [facility] PRN Reason: Protocol Last Admin: 04/19/18 05:05 Dose: 300 mls/hr Mupirocin (Bactroban Ointment) 1 applic TOP DAILY [facility] Tamsulosin HCl (Flomax) 0.4 mg PO DAILY [facility] Last Admin: 04/19/18 10:35 Dose: 0.4 mg - Labs Labs: 04/19/18 05:00 04/19/18 05:00 PT 11.2 Seconds (9.8-13.1) 04/15/18 10:30 INR 1.0 (0.9-1.2) 04/15/18 10:30 APTT 27.6 Seconds (25.6-37.1) 04/15/18 10:30 Assessment and Plan (1) VRE (vancomycin resistant enterococcus) culture positive Status: Acute (2) VRE (vancomycin resistant enterococcus) culture positive Status: Acute (3) Abdominal pain Status: Acute
--- NOTE | 2018-04-19 15:02 | PN ---
DATE: 04/19/2018 Rufino Sosa was seen on the floor. Vital signs are stable. The wound is stable. This could easily be metastatic or locally invasive adenocarcinoma. Plan on Sunday with Dr. Terrazas who will do an evaluation for stent and cystoscopy. I will do biopsy of the peritoneum and if this is positive, at this point I have no real plans to do abdominoperineal. The idea of placing him in hospice is very attractive. We will follow. Seamus Tyler MD
[2018-04-20] MEDS: Linezolid 600 mg in D5W 300 ml 600 MG/300 ML BAG IVPB SCH (04:52)
--- NOTE | 2018-04-20 07:41 | CP.PCM.PN ---
Subjective - Date & Time of Evaluation Date of Evaluation: 04/20/18 Time of Evaluation: 07:30 - Subjective Subjective: General Surgery Pt seen and examined. No acute events overnight. No new complaints Objective - Vital Signs/Intake and Output Vital Signs (last 24 hours): Temp Pulse Resp BP Pulse Ox 97.2 F L 72 20 134/76 98 04/19/18 23:53 04/19/18 23:53 04/19/18 23:53 04/19/18 23:53 04/19/18 23:53 - Medications Medications: Current Medications Heparin Sodium (Porcine) (Heparin) 5,000 units SC Q8 [facility] PRN Reason: Protocol Last Admin: 04/20/18 01:02 Dose: 5,000 units Linezolid (Zyvox 600mg/300ml D5w) 600 mg in 300 mls @ 300 mls/hr IVPB Q12@0500, 1700 [facility] PRN Reason: Protocol Last Admin: 04/20/18 04:52 Dose: 300 mls/hr Mupirocin (Bactroban Ointment) 1 applic TOP DAILY [facility] Tamsulosin HCl (Flomax) 0.4 mg PO DAILY [facility] Last Admin: 04/19/18 10:35 Dose: 0.4 mg - Labs Labs: 04/19/18 05:00 04/19/18 05:00 PT 11.2 Seconds (9.8-13.1) 04/15/18 10:30 INR 1.0 (0.9-1.2) 04/15/18 10:30 APTT 27.6 Seconds (25.6-37.1) 04/15/18 10:30 - Constitutional Appears: Non-toxic, No Acute Distress - Head Exam Head Exam: ATRAUMATIC, NORMOCEPHALIC - Eye Exam Eye Exam: EOMI. absent: Scleral icterus - Respiratory Exam Respiratory Exam: NORMAL BREATHING PATTERN. absent: Respiratory Distress - GI/Abdominal Exam GI & Abdominal Exam: Soft. absent: Distended, Tenderness Additional comments: ostomies functioning, viable - Neurological Exam Neurological Exam: Alert, Awake, Oriented x3 - Skin Skin Exam: Dry, Warm Assessment and Plan - Assessment and Plan (Free Text) Assessment: 77M with perianal abscess/lesion , rectal adenocarcinoma Plan: Plan is for rectal exam under anesthesia on 04/23/18 to r/o fistulas/determine extent/size of tumor with biopsy of perianal abscess and I and D As well as cysto w b/l stent with Dr. Amy HEADLEYO after midnight on Sun04/22/18 D/W Dr.Simpson Cleary PGY4
--- NOTE | 2018-04-20 11:49 | CP.PCM.PN ---
Subjective - Date & Time of Evaluation Date of Evaluation: 04/20/18 Time of Evaluation: 08:45 - Subjective Subjective: Patient seen and examined at bedside. No acute overnight events. Patient states he feels well. Pain occasionally from gluteal abscess. Tolerating PO diet well. Denies dysuria, hematuria, fever, chills, chest pain, dyspnea or cough. Intact colostomy bags with output drainage. Denies any other complaints. Objective - Vital Signs/Intake and Output Vital Signs (last 24 hours): Temp Pulse Resp BP Pulse Ox 98.2 F 66 19 137/74 99 04/20/18 07:42 04/20/18 07:42 04/20/18 07:42 04/20/18 07:42 04/20/18 07:42 - Medications Medications: Current Medications Heparin Sodium (Porcine) (Heparin) 5,000 units SC Q8 [facility] PRN Reason: Protocol Last Admin: 04/20/18 08:59 Dose: 5,000 units Linezolid (Zyvox 600mg/300ml D5w) 600 mg in 300 mls @ 300 mls/hr IVPB Q12@0500, 1700 [facility] PRN Reason: Protocol Last Admin: 04/20/18 04:52 Dose: 300 mls/hr Mupirocin (Bactroban Ointment) 1 applic TOP DAILY [facility] Last Admin: 04/20/18 08:58 Dose: 1 applic Tamsulosin HCl (Flomax) 0.4 mg PO DAILY [facility] Last Admin: 04/20/18 08:59 Dose: 0.4 mg - Labs Labs: 04/19/18 05:00 04/19/18 05:00 PT 11.2 Seconds (9.8-13.1) 04/15/18 10:30 INR 1.0 (0.9-1.2) 04/15/18 10:30 APTT 27.6 Seconds (25.6-37.1) 04/15/18 10:30 - Constitutional Appears: Non-toxic, No Acute Distress, Chronically Ill - Head Exam Head Exam: ATRAUMATIC, NORMAL INSPECTION, NORMOCEPHALIC - Eye Exam Eye Exam: Normal appearance - Respiratory Exam Respiratory Exam: Clear to Ausculation Bilateral, NORMAL BREATHING PATTERN - Cardiovascular Exam Cardiovascular Exam: REGULAR RHYTHM, +S1, +S2. absent: Murmur - GI/Abdominal Exam GI & Abdominal Exam: Soft, Normal Bowel Sounds. absent: Tenderness Additional comments: colostomy bag noted with serosanguinous fluids and stools. - Rectal Exam Additional comments: perirectal abscess with wound dressing, c/d/i. - Extremities Exam Extremities Exam: Normal Inspection. absent: Calf Tenderness, Pedal Edema - Neurological Exam Neurological Exam: Alert, Awake, Oriented x3 - Psychiatric Exam Psychiatric exam: Normal Affect, Normal Mood - Skin Skin Exam: Dry, Intact, Normal Color, Warm Assessment and Plan - Assessment and Plan (Free Text) Assessment: 77 year old undomiciled male with a pmhx of rectal adenocarcinoma, emile-rectal mass, right inguinal hernias, chronic anemia, and BPH admitted for perirectal abscess and VRE urinary tract infection. PLAN 1) Rectal Adenocarcinoma with perirectal abscess -Per previous admission: Pt is homeless with no social or financial support. Getting radiation and chemotherapy treatment before surgical resection not possible, which is why surgical option was offered as alternative treatment given his situation -Abd/pelvic CT on 04/15/18: IMPRESSION: abnormal hyperdense changes seen related to an irregularly thickened rectum suspicious for neoplasm with extension the left emile rectal/perianal/medical left buttock soft tissues. Abscess is not favored though not completely excluded here. No emphysematous changes are related or definitive fluid collection. -Surgery recommendation: plan for rectal exam under anesthesia on 04/23/18 to r/ o fistulas/determine extent/size of tumor with biopsy of perianal abscess and I and D. 2) VRE Urinary Tract Infection -UA shows small blood, leukocyte large, urine rbc 14, urine WBC 95 -Urine cx done on 04/09/18 which shows VRE, sensitive to linezolid -Continue linezolid 600 mg Q12 (day 6) -Urine cx on 04/15/18: multiple species, probable contamination. 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 -Afebrile, stable vs -Urology recommendation: cystoscopy and B/L uterine stent on 04/23/18 6) Chronic anemia, normocytic -likely secondary to malignancy -Stable 7) BPH -on Flomax 8) DVT prophylaxis -scds -heparin 5000 sc q8 9) Code status -Full code
--- NOTE | 2018-04-20 13:43 | CP.PCM.PN ---
Subjective - Date & Time of Evaluation Date of Evaluation: 04/20/18 Time of Evaluation: 13:41 - Subjective Subjective: Pt is awake oriented x 3 signed consent for stent insertion he is aware they must be removed or changed Q3mos. Amy Objective - Vital Signs/Intake and Output Vital Signs (last 24 hours): Temp Pulse Resp BP Pulse Ox 98.2 F 66 19 137/74 99 04/20/18 07:42 04/20/18 07:42 04/20/18 07:42 04/20/18 07:42 04/20/18 07:42 - Medications Medications: Current Medications Heparin Sodium (Porcine) (Heparin) 5,000 units SC Q8 [facility] PRN Reason: Protocol Last Admin: 04/20/18 08:59 Dose: 5,000 units Linezolid (Zyvox) 600 mg PO Q12 [facility] PRN Reason: Protocol Stop: 04/27/18 21:01 Mupirocin (Bactroban Ointment) 1 applic TOP DAILY [facility] Last Admin: 04/20/18 08:58 Dose: 1 applic Tamsulosin HCl (Flomax) 0.4 mg PO DAILY [facility] Last Admin: 04/20/18 08:59 Dose: 0.4 mg - Labs Labs: 04/19/18 05:00 04/19/18 05:00 PT 11.2 Seconds (9.8-13.1) 04/15/18 10:30 INR 1.0 (0.9-1.2) 04/15/18 10:30 APTT 27.6 Seconds (25.6-37.1) 04/15/18 10:30
--- NOTE | 2018-04-21 08:16 | CP.PCM.PN ---
Subjective - Date & Time of Evaluation Date of Evaluation: 04/21/18 Time of Evaluation: 08:30 - Subjective Subjective: Patient seen and examined at bedside. No acute overnight events. Reports feeling except for occasional pain from gluteal abscess. Tolerating PO diet well. Denies dysuria, hematuria, fever, chills, chest pain, dyspnea or cough. Intact colostomy bags with output drainage. Denies any other complaints. Objective - Vital Signs/Intake and Output Vital Signs (last 24 hours): Temp Pulse Resp BP Pulse Ox 98.0 F 63 19 118/72 97 04/21/18 07:52 04/21/18 07:52 04/21/18 07:52 04/21/18 07:52 04/21/18 07:52 - Medications Medications: Current Medications Heparin Sodium (Porcine) (Heparin) 5,000 units SC Q8 [facility] PRN Reason: Protocol Last Admin: 04/21/18 01:34 Dose: 5,000 units Linezolid (Zyvox) 600 mg PO Q12 [facility] PRN Reason: Protocol Stop: 04/27/18 21:01 Last Admin: 04/20/18 21:17 Dose: 600 mg Mupirocin (Bactroban Ointment) 1 applic TOP DAILY [facility] Last Admin: 04/20/18 08:58 Dose: 1 applic Tamsulosin HCl (Flomax) 0.4 mg PO DAILY [facility] Last Admin: 04/20/18 08:59 Dose: 0.4 mg - Labs Labs: 04/19/18 05:00 04/19/18 05:00 PT 11.2 Seconds (9.8-13.1) 04/15/18 10:30 INR 1.0 (0.9-1.2) 04/15/18 10:30 APTT 27.6 Seconds (25.6-37.1) 04/15/18 10:30 - Constitutional Appears: Non-toxic, No Acute Distress, Chronically Ill - Head Exam Head Exam: NORMAL INSPECTION - Eye Exam Eye Exam: Normal appearance - ENT Exam ENT Exam: Mucous Membranes Moist, Normal Oropharynx - Respiratory Exam Respiratory Exam: Clear to Ausculation Bilateral, NORMAL BREATHING PATTERN. absent: Rales, Rhonchi, Wheezes - Cardiovascular Exam Cardiovascular Exam: REGULAR RHYTHM, RRR, +S1, +S2. absent: Murmur - GI/Abdominal Exam GI & Abdominal Exam: Soft, Normal Bowel Sounds. absent: Tenderness Additional comments: Two colostomy bags in mid abdomen noted with serosanguinous fluids and stools. - Exam Additional comments: Perirectal abscess with wound dressing, dressing looks clean/dry/intact. - Extremities Exam Extremities Exam: Normal Inspection. absent: Calf Tenderness - Neurological Exam Neurological Exam: Alert, Awake, Oriented x3 - Skin Skin Exam: Normal Color, Warm Assessment and Plan - Assessment and Plan (Free Text) Assessment: 77 year old undomiciled male with a pmhx of rectal adenocarcinoma, emile-rectal mass, right inguinal hernias, chronic anemia, and BPH admitted for perirectal abscess and VRE urinary tract infection. PLAN 1) Rectal Adenocarcinoma with perirectal abscess -Per previous admission: Pt is homeless with no social or financial support. Getting radiation and chemotherapy treatment before surgical resection not possible, which is why surgical option was offered as alternative treatment given his situation -Abd/pelvic CT on 04/15/18: IMPRESSION: abnormal hyperdense changes seen related to an irregularly thickened rectum suspicious for neoplasm with extension the left emile rectal/perianal/medical left buttock soft tissues. Abscess is not favored though not completely excluded here. No emphysematous changes are related or definitive fluid collection. -Surgery recommendation: plan for rectal exam under anesthesia on 04/23/18 to r/ o fistulas/determine extent/size of tumor with biopsy of perianal abscess and I and D. -NPO after midnight on Sunday 04/22 2) VRE Urinary Tract Infection -UA shows small blood, leukocyte large, urine rbc 14, urine WBC 95 -Urine cx done on 04/09/18 which shows VRE, sensitive to linezolid -Continue linezolid 600 mg Q12 PO (day 7 of total 7 days) -Urine cx on 04/15/18: multiple species, probable contamination. -Repeat urine c&s: no growth -ID on board 3) B/L hydronephrosis on CT -CT abd/pelvis: Gross bilateral hydronephrosis has increased potentially is a function of cystitis or neoplastic urinary bladder findings. 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
--- NOTE | 2018-04-21 09:06 | CP.PCM.PN ---
Subjective - Date & Time of Evaluation Date of Evaluation: 04/21/18 Time of Evaluation: 09:04 - Subjective Subjective: Surgery Pt seen and examined. No acute events. Pain controlled. Mucous fistula draining. Objective - Vital Signs/Intake and Output Vital Signs (last 24 hours): Temp Pulse Resp BP Pulse Ox 98.0 F 63 19 118/72 97 04/21/18 07:52 04/21/18 07:52 04/21/18 07:52 04/21/18 07:52 04/21/18 07:52 - Medications Medications: Current Medications Heparin Sodium (Porcine) (Heparin) 5,000 units SC Q8 [facility] PRN Reason: Protocol Last Admin: 04/21/18 01:34 Dose: 5,000 units Linezolid (Zyvox) 600 mg PO Q12 [facility] PRN Reason: Protocol Stop: 04/27/18 21:01 Last Admin: 04/20/18 21:17 Dose: 600 mg Mupirocin (Bactroban Ointment) 1 applic TOP DAILY [facility] Last Admin: 04/20/18 08:58 Dose: 1 applic Tamsulosin HCl (Flomax) 0.4 mg PO DAILY [facility] Last Admin: 04/20/18 08:59 Dose: 0.4 mg - Labs Labs: 04/19/18 05:00 04/19/18 05:00 PT 11.2 Seconds (9.8-13.1) 04/15/18 10:30 INR 1.0 (0.9-1.2) 04/15/18 10:30 APTT 27.6 Seconds (25.6-37.1) 04/15/18 10:30 - Constitutional Appears: No Acute Distress, Cachectic, Chronically Ill - Head Exam Head Exam: ATRAUMATIC, NORMAL INSPECTION, NORMOCEPHALIC - Eye Exam Eye Exam: EOMI, Normal appearance, PERRL Pupil Exam: NORMAL ACCOMODATION, PERRL - ENT Exam ENT Exam: Mucous Membranes Moist, Normal Exam - Neck Exam Neck Exam: Full ROM, Normal Inspection. absent: Lymphadenopathy - Respiratory Exam Respiratory Exam: Clear to Ausculation Bilateral, NORMAL BREATHING PATTERN - Cardiovascular Exam Cardiovascular Exam: REGULAR RHYTHM, +S1, +S2. absent: Murmur - GI/Abdominal Exam GI & Abdominal Exam: Soft, Normal Bowel Sounds. absent: Distended, Firm, Guarding, Rigid, Tenderness Additional comments: stoma x2 . - Rectal Exam Rectal Exam: Deferred - Extremities Exam Extremities Exam: Full ROM, Normal Capillary Refill, Normal Inspection. absent : Joint Swelling, Pedal Edema - Back Exam Back Exam: NORMAL INSPECTION - Neurological Exam Neurological Exam: Alert, Awake, CN II-XII Intact, Oriented x3 - Psychiatric Exam Psychiatric exam: Normal Affect, Normal Mood - Skin Skin Exam: Dry, Intact, Normal Color, Warm Assessment and Plan - Assessment and Plan (Free Text) Assessment: 77M with perianal abscess/lesion , rectal adenocarcinoma Plan: Plan is for rectal exam under anesthesia on 04/23/18 9am to r/o fistulas/ determine extent/size of tumor with biopsy of perianal abscess and I and D As well as cysto w b/l stent with Dr. Reyes NPO after midnight on 04/22/18 Will D/W
--- NOTE | 2018-04-22 15:25 | CP.PCM.PN ---
Subjective - Date & Time of Evaluation Date of Evaluation: 04/22/18 Time of Evaluation: 08:23 - Subjective Subjective: Patient seen and examined at bedside. No acute overnight events. Reports feeling well except for occasional pain from gluteal abscess and left lower quadrant pain around ostomy, that has not required pain meds. Tolerating PO diet well. Denies dysuria, hematuria, fever, chills, chest pain, dyspnea or cough. Denies any other complaints. Objective - Vital Signs/Intake and Output Vital Signs (last 24 hours): Temp Pulse Resp BP Pulse Ox 97.5 F L 61 20 128/71 99 04/22/18 08:35 04/22/18 08:35 04/22/18 08:35 04/22/18 08:35 04/22/18 08:35 - Medications Medications: Current Medications Heparin Sodium (Porcine) (Heparin) 5,000 units SC Q8 [facility] PRN Reason: Protocol Sodium Chloride (Sodium Chloride 0.9%) 1,000 mls @ 100 mls/hr IV .Q10H [facility] Stop: 04/23/18 07:18 Mupirocin (Bactroban Ointment) 1 applic TOP DAILY [facility] Last Admin: 04/22/18 09:01 Dose: 1 applic Tamsulosin HCl (Flomax) 0.4 mg PO DAILY [facility] Last Admin: 04/22/18 09:01 Dose: 0.4 mg - Labs Labs: 04/19/18 05:00 04/19/18 05:00 PT 11.2 Seconds (9.8-13.1) 04/15/18 10:30 INR 1.0 (0.9-1.2) 04/15/18 10:30 APTT 27.6 Seconds (25.6-37.1) 04/15/18 10:30 - Constitutional Appears: Non-toxic, Toxic, Chronically Ill - Head Exam Head Exam: NORMAL INSPECTION - Eye Exam Eye Exam: Normal appearance - Neck Exam Neck Exam: Normal Inspection - Respiratory Exam Respiratory Exam: Clear to Ausculation Bilateral, NORMAL BREATHING PATTERN - Cardiovascular Exam Cardiovascular Exam: REGULAR RHYTHM, +S1, +S2. absent: Murmur - GI/Abdominal Exam GI & Abdominal Exam: Soft, Normal Bowel Sounds. absent: Tenderness Additional comments: Two colostomy bags noted with serosanguinous fluids and stool - Extremities Exam Extremities Exam: Normal Inspection - Back Exam Back Exam: NORMAL INSPECTION - Neurological Exam Neurological Exam: Alert, Awake, Oriented x3 - Psychiatric Exam Psychiatric exam: Normal Affect, Normal Mood - Skin Skin Exam: Dry, Intact, Normal Color, Warm Assessment and Plan - Assessment and Plan (Free Text) Assessment: 77 year old undomiciled male with a pmhx of rectal adenocarcinoma, emile-rectal mass, right inguinal hernias, chronic anemia, and BPH admitted for perirectal abscess and VRE urinary tract infection. PLAN 1) Rectal Adenocarcinoma with perirectal abscess -Per previous admission: Pt is homeless with no social or financial support. Getting radiation and chemotherapy treatment before surgical resection not possible, which is why surgical option was offered as alternative treatment given his situation -Abd/pelvic CT on 04/15/18: IMPRESSION: abnormal hyperdense changes seen related to an irregularly thickened rectum suspicious for neoplasm with extension the left emile rectal/perianal/medical left buttock soft tissues. Abscess is not favored though not completely excluded here. No emphysematous changes are related or definitive fluid collection. -Surgery recommendation: plan for rectal exam under anesthesia on 04/23/18 to r/ o fistulas/determine extent/size of tumor with biopsy of perianal abscess and I and D. -NPO after midnight on Sunday 04/22 2) VRE Urinary Tract Infection -Urine cx 04/09/18: VRE, sensitive to linezolid -Repeat urine c&s: no growth -ID on board -Discontinue linezolid 600 mg Q12 PO (completed total 7 days) 3) B/L hydronephrosis on CT -CT abd/pelvis: Gross bilateral hydronephrosis has increased potentially is a function of cystitis or neoplastic urinary bladder findings. 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
[2018-04-22] MEDS: Sodium Chloride 0.9% 1,000 ML IV SCH (18:23)
[2018-04-23] MEDS: Sodium Chloride 0.9% 1,000 ML IV SCH (04:54)
[2018-04-23 06:34] LABS: PARTIAL THROMBOPLASTIN TIME 26.9 Seconds (25.6-37.1); PROTHROMBIN TIME 10.7 Seconds (9.8-13.1)
--- NOTE | 2018-04-23 08:29 | CP.PCM.PN ---
Subjective - Date & Time of Evaluation Date of Evaluation: 04/23/18 Time of Evaluation: 07:45 - Subjective Subjective: Attempted to see the patient in the morning but pt already left the room for OR. Patient seen and examined at bedside this afternoon after the procedures. Denies any complaints. Pt is tolerating PO. Denies any nausea or vomiting. Bloody urine seen in the male urinal bottle. Denies chest pain, dyspnea, headache, dizziness or blurry vision. Denies fever or chills. Objective - Vital Signs/Intake and Output Vital Signs (last 24 hours): Temp Pulse Resp BP Pulse Ox 97.6 F 66 20 123/66 99 04/23/18 07:51 04/23/18 07:51 04/23/18 07:51 04/23/18 07:51 04/23/18 07:51 - Medications Medications: Current Medications Mupirocin (Bactroban Ointment) 1 applic TOP DAILY [facility] Last Admin: 04/23/18 08:03 Dose: 1 applic Tamsulosin HCl (Flomax) 0.4 mg PO DAILY [facility] Last Admin: 04/23/18 07:59 Dose: Not Given - Labs Labs: 04/19/18 05:00 04/19/18 05:00 PT 10.7 Seconds (9.8-13.1) 04/23/18 05:40 INR 1.0 (0.9-1.2) 04/23/18 05:40 APTT 26.9 Seconds (25.6-37.1) 04/23/18 05:40 - Additional Findings Additional findings: - Constitutional Appears: Non-toxic, Toxic, Chronically Ill - Head Exam Head Exam: NORMAL INSPECTION - Eye Exam Eye Exam: Normal appearance - Neck Exam Neck Exam: Normal Inspection - Respiratory Exam Respiratory Exam: Clear to Auscultation Bilateral, NORMAL BREATHING PATTERN - Cardiovascular Exam Cardiovascular Exam: REGULAR RHYTHM, +S1, +S2. absent: Murmur - GI/Abdominal Exam GI & Abdominal Exam: Soft, Normal Bowel Sounds. absent: Tenderness Additional comments: Two colostomy bags noted with serosanguinous fluids and stool Dressing placed on the gluteal area. Dressing looks C/D/I. - Extremities Exam Extremities Exam: Normal Inspection - Back Exam Back Exam: NORMAL INSPECTION - Neurological Exam Neurological Exam: Alert, Awake - Psychiatric Exam Psychiatric exam: Normal Affect, Normal Mood Assessment and Plan - Assessment and Plan (Free Text) Assessment: 77 year old undomiciled male with a pmhx of rectal adenocarcinoma, emile-rectal mass, right inguinal hernias, chronic anemia, and BPH admitted for VRE urinary tract infection and perirectal abscess s/p perirectal mass biopsy this morning. PLAN 1) Rectal Adenocarcinoma with perirectal abscess -Per previous admission: Pt is homeless with no social or financial support. Getting radiation and chemotherapy treatment before surgical resection not possible, which is why surgical option was offered as alternative treatment given his situation -Abd/pelvic CT on 04/15/18: IMPRESSION: abnormal hyperdense changes seen related to an irregularly thickened rectum suspicious for neoplasm with extension the left emile rectal/perianal/medical left buttock soft tissues. Abscess is not favored though not completely excluded here. No emphysematous changes are related or definitive fluid collection. -S/P perirectal mass biospy, EUA and rigid sigmoidoscopy this morning -f/u biopsy result 2) B/L hydronephrosis on CT -CT abd/pelvis: Gross bilateral hydronephrosis has increased potentially is a function of cystitis or neoplastic urinary bladder findings. 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
[2018-04-23] MEDS ORDERED: Midazolam 2 MG/2 ML VIAL ONE (08:57)
[2018-04-23] MEDS ORDERED: Propofol 10 mg/ml Inj (20 ML) ONE (08:57)
[2018-04-23] MEDS ORDERED: Lidocaine 1% 5ml Abboject IV ONE (08:57)
[2018-04-23] MEDS ORDERED: Lidocaine 2% Jelly (5 ml) TOP ONE (08:57)
[2018-04-23] MEDS ORDERED: Phenylephrine 10 mg/ml Inj ONE (09:03)
[2018-04-23] MEDS ORDERED: cefTRIAXone (Rocephin) 1 gm Inj ONE (09:06)
[2018-04-23] MEDS ORDERED: Liquid Adhesive TOP ONE (09:07)
[2018-04-23] MEDS ORDERED: Lactated Ringer's 1,000 ML IV ONE (09:18)
--- NOTE | 2018-04-23 10:08 | PCM.SURG1 ---
Surgeon's Initial Post Op Note - Surgeon's Notes Surgeon: Amy Data Warehouse Analyst: BILLY Type of Anesthesia: General LMA Anesthesia Administered By: Staff Pre-Operative Diagnosis: BILAT HYDRO Operative Findings: same Post-Operative Diagnosis: BILAT HYDRO Operation Performed: Cysto bilat stent insertion Specimen/Specimens Removed: na Estimated Blood Loss: EBL {In ML}: 0 Blood Products Given: N/A Drains Used: No Drains Post-Op Condition: Good Date of Surgery/Procedure: 04/23/18 Time of Surgery/Procedure: 10:07
--- NOTE | 2018-04-23 11:52 | PCM.SURG1 ---
Surgeon's Initial Post Op Note - Surgeon's Notes Surgeon: Jayson Cash Register Mechanic: [email or web address] Type of Anesthesia: General Endo Pre-Operative Diagnosis: Rectal adenocarcinoma Operative Findings: Rectal mass ~4-5 cm from anal verge, large perianal mass Post-Operative Diagnosis: Rectal adenocarcinoma Operation Performed: Perirectal mass biopsies, EUA, rigid sigmoidoscopy Specimen/Specimens Removed: Perirectal mass biopsies Estimated Blood Loss: EBL {In ML}: 10 Blood Products Given: N/A Drains Used: No Drains Post-Op Condition: Good Date of Surgery/Procedure: 04/23/18 Time of Surgery/Procedure: 10:00
--- NOTE | 2018-04-23 13:06 | RAD ---
PROCEDURE: Intraoperative Fluoroscopy. HISTORY: CYSTO: BILATERAL URETERAL STENT PLACEMENT FINDINGS: Fluoroscopic assistance was provided for bilateral stent placement. Please refer to the operative report from HAROLDO Webb. Total fluoroscopic time (continuous mode) utilized during the procedure 3.5 minutes
--- NOTE | 2018-04-23 13:09 | CON ---
DATE: 04/16/2018 HISTORY OF PRESENT ILLNESS: Mr. Sosa is a 77-year-old homeless male who has a history of colon CA, status post colostomy. It is not clear whether he has had any other therapy since, but has had no other therapy in this hospital. He was admitted to the hospital because of urinary tract infection and abdominal pain and was found to have bilateral hydronephrosis. He also has a perirectal abscess/tumor consistent with not completely treated colon cancer. The patient is very poor historian. He is awake, alert and oriented x3. He states that the abscess has been there for sometime. He is not sure how long. Further history is impossible, the patient is a poor historian. PHYSICAL EXAMINATION: The patient has a fluctuant abscess, and colostomy. No anterior abdominal tenderness or guarding. IMPRESSION AND PLAN: I have reviewed the CAT scan which shows bilateral hydronephrosis. Discussed this case with Dr. Tyler. Dr. Tyler requests a double-J stents to be inserted. We will schedule this in the next available day, once the patient is medically stable. Randy Reyes MD
--- NOTE | 2018-04-23 13:51 | OP ---
PROCEDURE DATE: 04/23/2018 PREOPERATIVE DIAGNOSIS: Bilateral hydronephrosis, secondary to pelvic obstruction from tumor/abscess. POSTOPERATIVE DIAGNOSIS: Bilateral hydronephrosis, secondary to pelvic obstruction from tumor/abscess. PROCEDURE: Cystoscopy and insertion of bilateral ureteral stents. DESCRIPTION OF PROCEDURE: As follows, the patient was asked to sign a detailed informed consent for the procedure after confirming that the patient was awake, alert, and oriented and able to understand. He consents for these stents insertion and was aware that the stents must be changed periodically (every 3 months) and they are only a temporary solution to his hydronephrosis. He is also aware that this will not cure his colon cancer. He was brought into the room, a time-out was taken according to rules and regulations of . He was cystoscoped with #21 Storz panendoscope. The pendulous and urethra was normal. The prostatic urethra showed a high median bar, but minimal lateral the bladder was entered atraumatically. There was severe trabeculation of the bladder in excess of what would be expected for the level of prostatic enlargement. The right ureteral orifice was localized first and a guidewire passed up into the renal pelvis and a double J-stent was placed over without difficulty. A guidewire was then inserted into the left ureteral orifice and with some difficulty manipulated up into the renal pelvis. The guidewire then was followed by double J-stent, which was passed over the existing guidewire and deployed within the renal pelvis. The patient tolerated this procedure well and was left in the OR. Dr. Tyler will proceed with the sigmoidoscopy and biopsy of pelvic mass. Randy Reyes MD
[2018-04-23] MEDS: Lactated Ringer's 1,000 ML IV SCH (16:17)
[2018-04-23] MEDS: Enoxaparin 40 mg Syringe SC SCH (21:35)
[2018-04-24] MEDS ORDERED: Labetalol 5 mg/ml Inj 20ML IVP STA (01:16)
[2018-04-24] MEDS ORDERED: HYDROmorphone 0.5 mg/0.5 ml ISec IVP ONE (02:22)
--- NOTE | 2018-04-24 04:47 | PCM.RRT ---
MAILROOM ASSISTANT Nurse Assessment - Situation Location: [address] [place] [address] Room Number: 661 1 MAILROOM ASSISTANT Reason for Call: Hypertension MAILROOM ASSISTANT Called By: RN - IV IV Inserted during MAILROOM ASSISTANT?: No - Respiratory Oxygen Delivery Method: Room Air Received Nebulizer Treatments: No Was the Patient Ventilated with Bag/Mask 100% O2?: No Secretions Suctioned?: No Was the Patient Intubated?: No Was the Patient Placed on a Ventilator?: No - Medication Medications Administered During MAILROOM ASSISTANT: Morphine 2 Mg @01:17. Morphine 2Mg @01: 27. Xanax 0.5MG @ 01:32 - Diagnostic Test Ordered EKG: No Chest X-Ray: No CT Scan: No CPR started during MAILROOM ASSISTANT?: No - Vital Signs Vital Signs: Rapid Response Vital Sign Blood Pressure 196/85 Pulse Rate 77 Respiratory Rate 30 Temperature 97.6 F Oxygen Saturation 99 - Time MAILROOM ASSISTANT Ended Time MAILROOM ASSISTANT Ended: 01:40 - Vital Signs at end of MAILROOM ASSISTANT Vital Signs at end of MAILROOM ASSISTANT: Rapid Response End Vital Sign Blood Pressure 181/80 Pulse Rate 72 Respiratory Rate 25 Temperature 97.8 F O2 Sat by Pulse Oximetry 100 - Recommendations MAILROOM ASSISTANT Level of Care Recommendations: Remain in current setting I.Reason for MAILROOM ASSISTANT - A) Acute Change in Patient: Subjective: MAILROOM ASSISTANT Reason: High blood pressure S: RN called by MAILROOM ASSISTANT bc patient had BP 200 systolic. Pt was noted to be complaining of pain in his surgical site- perianal. Denied CP, SOB, headache, blurry vision weakness. O: Vitals 200/90, HR 78, O2 sat 99% on rm air General: anxious appearing, moderate distress Cardio: RRR, no murmurs Pulm: CTABL, no rales Abdomen: Soft, non tender, non distended, +Stoma w/ fecal matter in bag MAILROOM ASSISTANT Interventions: Morphine 2mg Morphine 2mg Xanax 0.5mg On reassessment, pt was still complaining of severe pain. Dilaudid x 1 BP post interventions:169/78, HR 80 A: PT is a 77 y/o malef w/ hx of rectal adenocarcinoma, emile-rectal mass, admitted for VRE urinary tract infection and perirectal abscess s/p perirectal mass biopsy this morning, no presenting with elevated BP in setting of pain. Unstable vitals, likely secondary to pain. Pt has no hx of HTN. BP responsive to pain medication and anti anxiolytics P: Continue monitoring BP. PRN morphine placed w/ pain scale. MAILROOM ASSISTANT : Dr. Miller
[2018-04-24 06:54] LABS: HEMOGLOBIN 11.5 g/dL (12.0-18.0); MEAN CORPUSCULAR HEMOGLOBIN 29.5 pg (27.0-31.0); MEAN CORPUSCULAR HGB CONC 33.9 g/dL (33.0-37.0); RBC 3.88 Mil/uL (4.40-5.90); WHITE BLOOD COUNT 10.1 K/uL (4.8-10.8)
[2018-04-24] MEDS: Lactated Ringer's 1,000 ML IV SCH ×4 (07:14→18:39)
[2018-04-24 07:35] LABS: CALCIUM 8.6 mg/dL (8.4-10.2)
--- NOTE | 2018-04-24 09:11 | CP.PCM.PN ---
Subjective - Date & Time of Evaluation Date of Evaluation: 04/24/18 Time of Evaluation: 07:50 - Subjective Subjective: Patient seen and examined at bedside this morning. Overnight events reviewed, pt had elevated BP last night likely due to pain. Pt is awake , alert and oriented to place. Seems somewhat confused this morning and was asking if he had any procedures done yesterday. Reports pain in the left lower abdomen area and pain is controlled with pain meds. Pt is tolerating PO. Denies chest pain, dyspnea, headache, dizziness or blurry vision. Denies fever or chills. Objective - Vital Signs/Intake and Output Vital Signs (last 24 hours): Temp Pulse Resp BP Pulse Ox 98.1 F 77 20 156/80 H 98 04/24/18 08:03 04/24/18 08:03 04/24/18 08:03 04/24/18 08:03 04/24/18 08:03 - Medications Medications: Current Medications Enoxaparin Sodium (Lovenox) 40 mg SC HS [facility] PRN Reason: Protocol Last Admin: 04/23/18 21:35 Dose: 40 mg Lactated Ringer's (Lactated Ringer's) 1,000 mls @ 100 mls/hr IV .Q10H [facility] Last Admin: 04/24/18 07:14 Dose: Not Given Morphine Sulfate (Morphine) 2 mg IVP Q6 PRN PRN Reason: Pain, moderate (4-7) Last Admin: 04/24/18 07:04 Dose: 2 mg Morphine Sulfate (Morphine) 4 mg IVP Q6 PRN PRN Reason: Pain, severe (8-10) Mupirocin (Bactroban Ointment) 1 applic TOP DAILY [facility] Last Admin: 04/23/18 08:03 Dose: 1 applic Ondansetron HCl (Zofran Odt) 4 mg PO Q8H PRN PRN Reason: Nausea/Vomiting Tamsulosin HCl (Flomax) 0.4 mg PO DAILY [facility] Last Admin: 04/23/18 16:18 Dose: 0.4 mg - Labs Labs: 04/24/18 06:30 04/24/18 06:30 PT 10.7 Seconds (9.8-13.1) 04/23/18 05:40 INR 1.0 (0.9-1.2) 04/23/18 05:40 APTT 26.9 Seconds (25.6-37.1) 04/23/18 05:40 - Additional Findings Additional findings: - Constitutional Appears: Non-toxic, Toxic, Chronically Ill - Head Exam Head Exam: NORMAL INSPECTION - Eye Exam Eye Exam: Normal appearance - Neck Exam Neck Exam: Normal Inspection - Respiratory Exam Respiratory Exam: Clear to Auscultation Bilateral, NORMAL BREATHING PATTERN - Cardiovascular Exam Cardiovascular Exam: REGULAR RHYTHM, +S1, +S2. absent: Murmur - GI/Abdominal Exam GI & Abdominal Exam: Soft, Normal Bowel Sounds. absent: Tenderness Additional comments: Two colostomy bags noted with serosanguinous fluids and stool Pt keep removing the dressing from left gluteal area. - Extremities Exam Extremities Exam: Normal Inspection - Back Exam Back Exam: NORMAL INSPECTION - Neurological Exam Neurological Exam: Alert, Awake - Psychiatric Exam Psychiatric exam: Normal Affect, Normal Mood Assessment and Plan - Assessment and Plan (Free Text) Assessment: 77 year old undomiciled male with a pmhx of rectal adenocarcinoma, emile-rectal mass, right inguinal hernias, chronic anemia, and BPH admitted for VRE urinary tract infection and perirectal abscess s/p perirectal mass biopsy yesterday. PLAN 1) Rectal Adenocarcinoma with perirectal abscess -Per previous admission: Pt is homeless with no social or financial support. Getting radiation and chemotherapy treatment before surgical resection not possible, which is why surgical option was offered as alternative treatment given his situation -Abd/pelvic CT on 04/15/18: IMPRESSION: abnormal hyperdense changes seen related to an irregularly thickened rectum suspicious for neoplasm with extension the left emile rectal/perianal/medical left buttock soft tissues. Abscess is not favored though not completely excluded here. No emphysematous changes are related or definitive fluid collection. -S/P perirectal mass biospy, EUA and rigid sigmoidoscopy yesterday -f/u biopsy result 2) B/L hydronephrosis on CT -CT abd/pelvis: Gross bilateral hydronephrosis has increased potentially is a function of cystitis or neoplastic urinary bladder findings. 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
--- NOTE | 2018-04-24 13:43 | CP.PCM.PN ---
Subjective - Date & Time of Evaluation Date of Evaluation: 04/24/18 Time of Evaluation: 13:40 - Subjective Subjective: General Surgery Progress Note 77M seen at bedside this AM. AAO x 3, NAD. No acute overnight events. States that pain is well controlled. Denies any recent N/V/F/C/CP/SOB/D Objective - Vital Signs/Intake and Output Vital Signs (last 24 hours): Temp Pulse Resp BP Pulse Ox 98.1 F 77 20 156/80 H 98 04/24/18 08:03 04/24/18 08:03 04/24/18 08:03 04/24/18 08:03 04/24/18 08:03 - Medications Medications: Current Medications Enoxaparin Sodium (Lovenox) 40 mg SC HS [facility] PRN Reason: Protocol Last Admin: 04/23/18 21:35 Dose: 40 mg Lactated Ringer's (Lactated Ringer's) 1,000 mls @ 200 mls/hr IV .Q5H [facility] Last Admin: 04/24/18 11:35 Dose: 200 mls/hr Morphine Sulfate (Morphine) 4 mg IVP Q4 PRN PRN Reason: Pain, severe (8-10) Morphine Sulfate (Morphine) 2 mg IVP Q4 PRN PRN Reason: Pain, moderate (4-7) Last Admin: 04/24/18 12:21 Dose: 2 mg Mupirocin (Bactroban Ointment) 1 applic TOP DAILY [facility] Last Admin: 04/24/18 11:29 Dose: 1 applic Ondansetron HCl (Zofran Odt) 4 mg PO Q8H PRN PRN Reason: Nausea/Vomiting Tamsulosin HCl (Flomax) 0.4 mg PO DAILY [facility] Last Admin: 04/24/18 11:29 Dose: 0.4 mg - Labs Labs: 04/24/18 06:30 04/24/18 06:30 PT 10.7 Seconds (9.8-13.1) 04/23/18 05:40 INR 1.0 (0.9-1.2) 04/23/18 05:40 APTT 26.9 Seconds (25.6-37.1) 04/23/18 05:40 - Constitutional Appears: Well, Non-toxic, No Acute Distress - Head Exam Head Exam: ATRAUMATIC, NORMOCEPHALIC - GI/Abdominal Exam GI & Abdominal Exam: Soft, Normal Bowel Sounds. absent: Distended, Firm, Guarding, Rigid, Tenderness Additional comments: Stoma x 2 - Neurological Exam Neurological Exam: Alert, Awake, Oriented x3 - Psychiatric Exam Psychiatric exam: Normal Affect, Normal Mood Assessment and Plan - Assessment and Plan (Free Text) Assessment: 77M with perianal abscess/lesion, rectal adenocarcinoma one day s/p cysto b/l stent insertion, perirectal mass biopsies, EUA, rigid sigmoidoscopy Plan: Afebrile, absent leukocytosis Biopsy site dressing changed. No drainage or signs of infection F/u biopsy results LRs Pain meds Regular diet D/w social work for possible radiotherapy in house vs. outpatient treatment. Due to patient's social circumstances in house treatment is preferred F/u further recs from Dr. Tyler
--- NOTE | 2018-04-24 14:39 | CP.PCM.PN ---
Subjective - Date & Time of Evaluation Date of Evaluation: 04/24/18 Time of Evaluation: 14:36 - Subjective Subjective: Pt remains afibrile no sig discomfort from stents. No further eval at this time. Please refer pt to for stent change or removal in 3 to 4 mos. Amy Objective - Vital Signs/Intake and Output Vital Signs (last 24 hours): Temp Pulse Resp BP Pulse Ox 98.1 F 77 20 156/80 H 98 04/24/18 08:03 04/24/18 08:03 04/24/18 08:03 04/24/18 08:03 04/24/18 08:03 - Medications Medications: Current Medications Enoxaparin Sodium (Lovenox) 40 mg SC HS [facility] PRN Reason: Protocol Last Admin: 04/23/18 21:35 Dose: 40 mg Lactated Ringer's (Lactated Ringer's) 1,000 mls @ 200 mls/hr IV .Q5H [facility] Last Admin: 04/24/18 11:35 Dose: 200 mls/hr Morphine Sulfate (Morphine) 4 mg IVP Q4 PRN PRN Reason: Pain, severe (8-10) Morphine Sulfate (Morphine) 2 mg IVP Q4 PRN PRN Reason: Pain, moderate (4-7) Last Admin: 04/24/18 12:21 Dose: 2 mg Mupirocin (Bactroban Ointment) 1 applic TOP DAILY [facility] Last Admin: 04/24/18 11:29 Dose: 1 applic Ondansetron HCl (Zofran Odt) 4 mg PO Q8H PRN PRN Reason: Nausea/Vomiting Tamsulosin HCl (Flomax) 0.4 mg PO DAILY [facility] Last Admin: 04/24/18 11:29 Dose: 0.4 mg - Labs Labs: 04/24/18 06:30 04/24/18 06:30 PT 10.7 Seconds (9.8-13.1) 04/23/18 05:40 INR 1.0 (0.9-1.2) 04/23/18 05:40 APTT 26.9 Seconds (25.6-37.1) 04/23/18 05:40
[2018-04-24] MEDS: Enoxaparin 40 mg Syringe SC SCH (21:27)
[2018-04-25] MEDS: Lactated Ringer's 1,000 ML IV SCH ×5 (03:45→19:00)
[2018-04-25 07:45] LABS: CALCIUM 8.4 mg/dL (8.4-10.2)
--- NOTE | 2018-04-25 08:12 | CP.PCM.PN ---
Subjective - Date & Time of Evaluation Date of Evaluation: 04/25/18 Time of Evaluation: 08:00 - Subjective Subjective: Patient seen and examined at bedside this morning. No acute overnight events. Pt continues to have pain in the left gluteus and pain is controlled with pain meds. Pt is tolerating PO. Denies chest pain, dyspnea, headache, dizziness or blurry vision. Denies fever or chills. Objective - Vital Signs/Intake and Output Vital Signs (last 24 hours): Temp Pulse Resp BP Pulse Ox 99.3 F 90 18 134/76 97 04/24/18 23:57 04/24/18 23:57 04/24/18 23:57 04/24/18 23:57 04/24/18 23:57 - Medications Medications: Current Medications Enoxaparin Sodium (Lovenox) 40 mg SC HS [facility] PRN Reason: Protocol Last Admin: 04/24/18 21:27 Dose: 40 mg Lactated Ringer's (Lactated Ringer's) 1,000 mls @ 100 mls/hr IV .Q10H [facility] Last Admin: 04/25/18 05:54 Dose: 100 mls/hr Morphine Sulfate (Morphine) 4 mg IVP Q4 PRN PRN Reason: Pain, severe (8-10) Morphine Sulfate (Morphine) 2 mg IVP Q4 PRN PRN Reason: Pain, moderate (4-7) Last Admin: 04/25/18 03:40 Dose: 2 mg Mupirocin (Bactroban Ointment) 1 applic TOP DAILY [facility] Last Admin: 04/24/18 11:29 Dose: 1 applic Ondansetron HCl (Zofran Odt) 4 mg PO Q8H PRN PRN Reason: Nausea/Vomiting Tamsulosin HCl (Flomax) 0.4 mg PO DAILY [facility] Last Admin: 04/24/18 11:29 Dose: 0.4 mg - Labs Labs: 04/24/18 06:30 04/25/18 05:30 PT 10.7 Seconds (9.8-13.1) 04/23/18 05:40 INR 1.0 (0.9-1.2) 04/23/18 05:40 APTT 26.9 Seconds (25.6-37.1) 04/23/18 05:40 - Additional Findings Additional findings: - Constitutional Appears: Non-toxic, Toxic, Chronically Ill - Head Exam Head Exam: NORMAL INSPECTION - Eye Exam Eye Exam: Normal appearance - Neck Exam Neck Exam: Normal Inspection - Respiratory Exam Respiratory Exam: Clear to Auscultation Bilateral, NORMAL BREATHING PATTERN - Cardiovascular Exam Cardiovascular Exam: REGULAR RHYTHM, +S1, +S2. absent: Murmur - GI/Abdominal Exam GI & Abdominal Exam: Soft, Normal Bowel Sounds. absent: Tenderness Additional comments: One colostomy bag noted with output draining and dressing intact on another colostomy site Mild tenderness on perirectal swelling on left buttock with no active draining seen - Extremities Exam Extremities Exam: Normal Inspection - Back Exam Back Exam: NORMAL INSPECTION - Neurological Exam Neurological Exam: Alert, Awake - Psychiatric Exam Psychiatric exam: Normal Affect, Normal Mood Assessment and Plan - Assessment and Plan (Free Text) Plan: 77 year old undomiciled male with a pmhx of rectal adenocarcinoma, emile-rectal mass, right inguinal hernias, chronic anemia, and BPH admitted for VRE urinary tract infection and perirectal abscess s/p perirectal mass biopsy on 04/23/18. PLAN 1) Rectal Adenocarcinoma with perirectal abscess -Per previous admission: Pt is homeless with no social or financial support. Getting radiation and chemotherapy treatment before surgical resection not possible, which is why surgical option was offered as alternative treatment given his situation -Abd/pelvic CT on 04/15/18: IMPRESSION: abnormal hyperdense changes seen related to an irregularly thickened rectum suspicious for neoplasm with extension the left emile rectal/perianal/medical left buttock soft tissues. Abscess is not favored though not completely excluded here. No emphysematous changes are related or definitive fluid collection. -S/P perirectal mass biospy, EUA and rigid sigmoidoscopy on 04/23/18 -Rectal biopsy: rectal adenocarcinoma 2) B/L hydronephrosis on CT -CT abd/pelvis: Gross bilateral hydronephrosis has increased potentially is a function of cystitis or neoplastic urinary bladder findings. -Afebrile, stable vs -S/P Cystoscopy and B/L stent insertion on 04/23/18. 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
--- NOTE | 2018-04-25 08:40 | CP.PCM.PN ---
Subjective - Date & Time of Evaluation Date of Evaluation: 04/25/18 Time of Evaluation: 08:37 - Subjective Subjective: General Surgery Progress Note 77M seen at bedside this AM. AAO x 3, NAD. No acute overnight events. States that pain is well controlled. Denies any recent N/V/F/C/CP/SOB/D Objective - Vital Signs/Intake and Output Vital Signs (last 24 hours): Temp Pulse Resp BP Pulse Ox 99.3 F 90 18 134/76 97 04/24/18 23:57 04/24/18 23:57 04/24/18 23:57 04/24/18 23:57 04/24/18 23:57 - Medications Medications: Current Medications Enoxaparin Sodium (Lovenox) 40 mg SC HS [facility] PRN Reason: Protocol Last Admin: 04/24/18 21:27 Dose: 40 mg Lactated Ringer's (Lactated Ringer's) 1,000 mls @ 100 mls/hr IV .Q10H [facility] Last Admin: 04/25/18 05:54 Dose: 100 mls/hr Morphine Sulfate (Morphine) 4 mg IVP Q4 PRN PRN Reason: Pain, severe (8-10) Morphine Sulfate (Morphine) 2 mg IVP Q4 PRN PRN Reason: Pain, moderate (4-7) Last Admin: 04/25/18 03:40 Dose: 2 mg Mupirocin (Bactroban Ointment) 1 applic TOP DAILY [facility] Last Admin: 04/24/18 11:29 Dose: 1 applic Ondansetron HCl (Zofran Odt) 4 mg PO Q8H PRN PRN Reason: Nausea/Vomiting Tamsulosin HCl (Flomax) 0.4 mg PO DAILY [facility] Last Admin: 04/24/18 11:29 Dose: 0.4 mg - Labs Labs: 04/24/18 06:30 04/25/18 05:30 PT 10.7 Seconds (9.8-13.1) 04/23/18 05:40 INR 1.0 (0.9-1.2) 04/23/18 05:40 APTT 26.9 Seconds (25.6-37.1) 04/23/18 05:40 - Constitutional Appears: Well, Non-toxic, No Acute Distress - Head Exam Head Exam: ATRAUMATIC, NORMOCEPHALIC - GI/Abdominal Exam GI & Abdominal Exam: Soft, Normal Bowel Sounds. absent: Distended, Firm, Guarding, Rigid, Tenderness Additional comments: Stoma x 2 - Neurological Exam Neurological Exam: Alert, Awake, Oriented x3 - Psychiatric Exam Psychiatric exam: Normal Affect, Normal Mood Assessment and Plan - Assessment and Plan (Free Text) Assessment: 77M with perianal abscess/lesion, rectal adenocarcinoma two days s/p cysto b/l stent insertion, perirectal mass biopsies, EUA, rigid sigmoidoscopy Plan: Afebrile, absent leukocytosis Biopsy site dressing changed. No drainage or signs of infection Rectal biopsy: Rectal tumor - adenocarcinoma, moderately differentiated, infiltrative; perirectal mass - mildly keratotic stratified squamous epithelium with skin appendages consistent with skin segment and attached fibromuscular tissue containing foci of adenocarcinoma LRs Pain meds Regular diet Awaiting social work for possible radiotherapy in house vs. outpatient treatment. Due to patient's social circumstances, in house treatment is preferred F/u further recs from Dr. Tyler
[2018-04-25] MEDS: Oxycodone/Acetaminophen 5/325 mg Tab PO SCH ×2 (13:30→16:51)
[2018-04-25] MEDS: Enoxaparin 40 mg Syringe SC SCH (22:15)
[2018-04-26] MEDS: Lactated Ringer's 1,000 ML IV SCH ×4 (02:05→22:38)
[2018-04-26 06:56] LABS: ALB/GLOB RATIO 0.9 (1.0-2.1); ALBUMIN 3.2 g/dL (3.5-5.0); CALCIUM 8.6 mg/dL (8.4-10.2); MEAN CELL VOLUME 87.4 fl (80.0-94.0); MEAN CORPUSCULAR HEMOGLOBIN 29.3 pg (27.0-31.0); MEAN CORPUSCULAR HGB CONC 33.5 g/dL (33.0-37.0); RBC 3.75 Mil/uL (4.40-5.90); RED CELL DISTRIBUTION WIDTH 16.2 % (11.5-14.5)
--- NOTE | 2018-04-26 08:22 | PN ---
DATE: 04/25/2018 SUBJECTIVE: I had a long discussion with Dr. Fernandez. My feeling two to three weeks ago was that the patient would possibly benefit from chemoradiation and aggressive surgery after a decompressing colostomy in sometime. The biopsies yesterday from the perineum clearly show that the tumor is outside the surgical resection margins and I now believe that no further surgery is indicated, warranted, or even justifiable. I was pushing heavily for radiation chemotherapy as I thought that was standard at that time. However, I think the patient is very well palliated now and would suggest hospice. If this is possible, I think this will be a justifiable treatment course and would advise such. Seamus Tyler MD
--- NOTE | 2018-04-26 08:39 | CP.PCM.PN ---
Subjective - Date & Time of Evaluation Date of Evaluation: 04/26/18 Time of Evaluation: 06:50 - Subjective Subjective: Surgery Progress note. Dr. Tyler Pt seen and examined at bedside. No acute events overnight. No N/V/D. Still c/o back pain. No F/C. Ostomy in place with brown stool output. No new complaints. Objective - Vital Signs/Intake and Output Vital Signs (last 24 hours): Temp Pulse Resp BP Pulse Ox 98.3 F 86 17 160/84 H 94 L 04/26/18 07:58 04/26/18 07:58 04/26/18 07:58 04/26/18 07:58 04/26/18 07:58 - Medications Medications: Current Medications Enoxaparin Sodium (Lovenox) 40 mg SC HS [facility] PRN Reason: Protocol Last Admin: 04/25/18 22:15 Dose: 40 mg Lactated Ringer's (Lactated Ringer's) 1,000 mls @ 150 mls/hr IV .Q6H40M [facility] Last Admin: 04/26/18 02:05 Dose: 150 mls/hr Morphine Sulfate (Morphine) 4 mg IVP Q4 PRN PRN Reason: Pain, severe (8-10) Morphine Sulfate (Morphine) 2 mg IVP Q4 PRN PRN Reason: Pain, moderate (4-7) Last Admin: 04/26/18 02:03 Dose: 2 mg Mupirocin (Bactroban Ointment) 1 applic TOP DAILY [facility] Last Admin: 04/25/18 11:04 Dose: 1 applic Ondansetron HCl (Zofran Odt) 4 mg PO Q8H PRN PRN Reason: Nausea/Vomiting Oxycodone/Acetaminophen (Percocet 5/325 Mg Tab) 1 tab PO TID [facility] Stop: 04/28/18 13:01 Last Admin: 04/25/18 16:51 Dose: 1 tab Tamsulosin HCl (Flomax) 0.4 mg PO DAILY [facility] Last Admin: 04/25/18 11:04 Dose: 0.4 mg - Labs Labs: 04/26/18 05:30 04/26/18 05:30 PT 10.7 Seconds (9.8-13.1) 04/23/18 05:40 INR 1.0 (0.9-1.2) 04/23/18 05:40 APTT 26.9 Seconds (25.6-37.1) 04/23/18 05:40 - Constitutional Appears: Non-toxic, No Acute Distress - Head Exam Head Exam: ATRAUMATIC, NORMAL INSPECTION, NORMOCEPHALIC - Eye Exam Eye Exam: EOMI, Normal appearance - ENT Exam ENT Exam: Mucous Membranes Moist - Respiratory Exam Respiratory Exam: NORMAL BREATHING PATTERN. absent: Accessory Muscle Use, Respiratory Distress - Cardiovascular Exam Cardiovascular Exam: RRR. absent: JVD - GI/Abdominal Exam GI & Abdominal Exam: Soft. absent: Distended, Firm, Guarding, Rebound Additional comments: Ostomy in place with brown out put noted. - Rectal Exam Additional comments: perianal mass noted with some firmness. biopsy area with no active bleeding noted. - Extremities Exam Extremities Exam: Normal Inspection. absent: Calf Tenderness - Neurological Exam Neurological Exam: Alert, Awake - Skin Skin Exam: Dry, Intact, Normal Color, Warm Assessment and Plan - Assessment and Plan (Free Text) Assessment: 77M bx confirmed rectal adenocarcinoma s/p cysto b/l stent insertion, EUA, rigid sigmoidoscopy, perianal lesion bx confirmed adenocarcinoma. - Perineum Biopsy: Confirmed Adenocarcinoma. Plan: - Rectal tumor is outside the surgical resection margins. - Recommend Hospice eval - f/u Radiation Onc recs. Doubt benefit from radiation or chemo at this time. - No further surgical intervention is warranted - We will follow the patient peripherally Further recs as per Dr. Jayson Foreman PGY1 surgery Pager: [phone]
[2018-04-26] MEDS: Oxycodone/Acetaminophen 5/325 mg Tab PO SCH ×3 (10:11→16:05)
--- NOTE | 2018-04-26 11:34 | CP.PCM.PN ---
Subjective - Date & Time of Evaluation Date of Evaluation: 04/26/18 Time of Evaluation: 11:32 - Subjective Subjective: Patient seen and examined at bedside this morning. No acute event overnight, patient denies any pain this morning, c/o dysuria. Denies any chest pain, SOB, or dizziness. Objective - Vital Signs/Intake and Output Vital Signs (last 24 hours): Temp Pulse Resp BP Pulse Ox 98.3 F 86 17 160/84 H 94 L 04/26/18 07:58 04/26/18 07:58 04/26/18 07:58 04/26/18 07:58 04/26/18 07:58 - Medications Medications: Current Medications Enoxaparin Sodium (Lovenox) 40 mg SC HS [facility] PRN Reason: Protocol Last Admin: 04/25/18 22:15 Dose: 40 mg Lactated Ringer's (Lactated Ringer's) 1,000 mls @ 150 mls/hr IV .Q6H40M [facility] Last Admin: 04/26/18 10:28 Dose: 150 mls/hr Morphine Sulfate (Morphine) 4 mg IVP Q4 PRN PRN Reason: Pain, severe (8-10) Morphine Sulfate (Morphine) 2 mg IVP Q4 PRN PRN Reason: Pain, moderate (4-7) Last Admin: 04/26/18 02:03 Dose: 2 mg Mupirocin (Bactroban Ointment) 1 applic TOP DAILY [facility] Last Admin: 04/26/18 10:09 Dose: 1 applic Ondansetron HCl (Zofran Odt) 4 mg PO Q8H PRN PRN Reason: Nausea/Vomiting Oxycodone/Acetaminophen (Percocet 5/325 Mg Tab) 1 tab PO TID [facility] Stop: 04/28/18 13:01 Last Admin: 04/26/18 10:11 Dose: 1 tab Tamsulosin HCl (Flomax) 0.4 mg PO DAILY [facility] Last Admin: 04/26/18 10:10 Dose: 0.4 mg - Labs Labs: 04/26/18 05:30 04/26/18 05:30 PT 10.7 Seconds (9.8-13.1) 04/23/18 05:40 INR 1.0 (0.9-1.2) 04/23/18 05:40 APTT 26.9 Seconds (25.6-37.1) 04/23/18 05:40 - Constitutional Appears: Non-toxic, No Acute Distress - Head Exam Head Exam: NORMAL INSPECTION - Eye Exam Eye Exam: Normal appearance - ENT Exam ENT Exam: Mucous Membranes Moist - Neck Exam Neck Exam: Normal Inspection - Respiratory Exam Respiratory Exam: Clear to Ausculation Bilateral - Cardiovascular Exam Cardiovascular Exam: REGULAR RHYTHM - GI/Abdominal Exam GI & Abdominal Exam: Soft. absent: Tenderness Additional comments: left colostomy bag noted with non-bloody stool, second colostomy site was covered with dressing, w/ bloody discharge Mild tenderness on perirectal swelling on left buttock with no active draining seen - Extremities Exam Extremities Exam: Normal Inspection - Back Exam Back Exam: NORMAL INSPECTION - Neurological Exam Neurological Exam: Alert, Awake, Oriented x3 - Psychiatric Exam Psychiatric exam: Normal Affect - Skin Skin Exam: Normal Color Assessment and Plan - Assessment and Plan (Free Text) Assessment: A/P: 77 y/o male with a pmhx of rectal adenocarcinoma, emile-rectal mass, right inguinal hernias, chronic anemia, and BPH admitted for VRE urinary tract infection and perirectal abscess s/p perirectal mass biopsy on 04/23/18. Rectal Adenocarcinoma with perirectal abscess -Abd/pelvic CT on 04/15/18: IMPRESSION: abnormal hyperdense changes seen related to an irregularly thickened rectum suspicious for neoplasm with extension the left emile rectal/perianal/medical left buttock soft tissues. Abscess is not favored though not completely excluded here. No emphysematous changes are related or definitive fluid collection. -S/P perirectal mass biospy, EUA and rigid sigmoidoscopy on 04/23/18 -Rectal biopsy: rectal adenocarcinoma -Surgery lin' appreciated; No surgical interventions, possible radiation vs Chemo -As per administration XRT is not an option at this time -Hem Onc consult; for possible chemo therapy, f/u with Dr. Thompson -Consider Hospice -C/w pain management; Morphine and Percocet LYLE -BUN/Cr: 46/4.2 Today -C/w LR 150 -Bladder scan today, pre and post residual -UA and Ucx today B/L hydronephrosis on CT -Afebrile -CT abd/pelvis: Gross bilateral hydronephrosis has increased potentially is a function of cystitis or neoplastic urinary bladder findings. -S/P Cystoscopy and B/L stent insertion on 04/23/18. S/p VRE Urinary Tract Infection -Urine cx 04/09/18: VRE, sensitive to linezolid -Repeat urine c&s: no growth -ID on board -S/p linezolid 600 mg Q12 PO for 7days Fistula/colostomy draining -s/p partial colectomy and colostomy bag -Surgery on board -Wound care on board for colostomy care Elevated BP -no hx HTN -Likely secondary to pain -Pain management with morphine -Monitor vitals BPH -on Flomax DVT prophylaxis -scds -Lovenox 40 mg SC qhs Code status -Full code
[2018-04-26 20:48] LABS: CALCIUM 8.6 mg/dL (8.4-10.2)
[2018-04-26] MEDS: Enoxaparin 40 mg Syringe SC SCH (22:00)
--- NOTE | 2018-04-26 22:53 | CP.PCM.PCO ---
Physician Communication Note - Physician Communication Note Physician Communication Note: Paged by nurse, patient pulled out heard catheter Assessment/Plan - Assessment and Plan (Free Text) Assessment: Patient AAO x 3, laying comfortably in bed, when asked what happened and why he pulled out the heard catheter: patient stated "I'm sorry, I failed, I don't want it", discussed and explained to patient the importance of calling the nurse if he needs anything and not taking anything off or doing anything without their help. Physical exam: minimal bleeding from external urethral orifice Plan: -In meantime asked patient to void into bedside urinal bottle -nurse aware to record I's and O's - Date & Time Date: 04/26/18 Time: 21:55
[2018-04-27 06:03] LABS: URINE BACTERIA OCC (<OCC); URINE BILIRUBIN NEGATIVE (NEGATIVE); URINE BLOOD LARGE (NEGATIVE); URINE CLARITY CLOUDY (Clear); URINE COLOR YELLOW (YELLOW); URINE GLUCOSE (UA) NEG (Normal); URINE LEUKOCYTE ESTERASE SMALL Leu/uL (Negative); URINE PROTEIN 30 mg/dL (NEGATIVE); URINE UROBILINOGEN 0.2-1.0 mg/dL (0.2-1.0); WBC CLUMPS FEW /hpf
[2018-04-27] MEDS: Lactated Ringer's 1,000 ML IV SCH ×2 (06:40→11:49)
[2018-04-27 08:40] LABS: ALB/GLOB RATIO 0.8 (1.0-2.1); ALBUMIN 2.5 g/dL (3.5-5.0); CALCIUM 8.2 mg/dL (8.4-10.2)
[2018-04-27 08:46] LABS: MEAN CELL VOLUME 86.7 fl (80.0-94.0); MEAN CORPUSCULAR HEMOGLOBIN 29.4 pg (27.0-31.0); MEAN CORPUSCULAR HGB CONC 33.9 g/dL (33.0-37.0); RBC 2.72 Mil/uL (4.40-5.90); RED CELL DISTRIBUTION WIDTH 16.5 % (11.5-14.5); WHITE BLOOD COUNT 6.9 K/uL (4.8-10.8)
[2018-04-27] MEDS: Oxycodone/Acetaminophen 5/325 mg Tab PO SCH ×4 (08:54→16:54)
--- NOTE | 2018-04-27 13:10 | CP.PCM.PN ---
Subjective - Date & Time of Evaluation Date of Evaluation: 04/27/18 Time of Evaluation: 13:33 - Subjective Subjective: Overnight events discussed and reviewed with house staff. Seen by bedside this AM. No heard in place, voiding without difficulty today. Denies f/c/n/v/cp Objective - Vital Signs/Intake and Output Vital Signs (last 24 hours): Temp Pulse Resp BP Pulse Ox 99.4 F 73 18 116/62 96 04/27/18 08:50 04/27/18 08:50 04/27/18 08:50 04/27/18 08:50 04/27/18 08:50 Intake and Output: 04/27/18 04/27/18 06:59 18:59 Intake Total 1920 Output Total 720 Balance 1200 - Medications Medications: Current Medications Enoxaparin Sodium (Lovenox) 40 mg SC HS [facility] PRN Reason: Protocol Last Admin: 04/26/18 22:00 Dose: 40 mg Lactated Ringer's (Lactated Ringer's) 1,000 mls @ 150 mls/hr IV .Q6H40M [facility] Last Admin: 04/27/18 06:40 Dose: Not Given Morphine Sulfate (Morphine) 4 mg IVP Q4 PRN PRN Reason: Pain, severe (8-10) Morphine Sulfate (Morphine) 2 mg IVP Q4 PRN PRN Reason: Pain, moderate (4-7) Last Admin: 04/26/18 02:03 Dose: 2 mg Mupirocin (Bactroban Ointment) 1 applic TOP DAILY [facility] Last Admin: 04/27/18 08:52 Dose: 1 applic Ondansetron HCl (Zofran Odt) 4 mg PO Q8H PRN PRN Reason: Nausea/Vomiting Oxycodone/Acetaminophen (Percocet 5/325 Mg Tab) 1 tab PO TID [facility] Stop: 04/28/18 13:01 Last Admin: 04/27/18 10:43 Dose: 1 tab Tamsulosin HCl (Flomax) 0.4 mg PO DAILY [facility] Last Admin: 04/27/18 08:52 Dose: 0.4 mg - Labs Labs: 04/27/18 06:00 04/27/18 06:00 PT 10.7 Seconds (9.8-13.1) 04/23/18 05:40 INR 1.0 (0.9-1.2) 04/23/18 05:40 APTT 26.9 Seconds (25.6-37.1) 04/23/18 05:40 - Constitutional Appears: No Acute Distress, Chronically Ill - Head Exam Head Exam: ATRAUMATIC - Eye Exam Eye Exam: EOMI Pupil Exam: PERRL - ENT Exam ENT Exam: Mucous Membranes Moist - Neck Exam Neck Exam: Full ROM - Respiratory Exam Respiratory Exam: Clear to Ausculation Bilateral - Cardiovascular Exam Cardiovascular Exam: +S1, +S2 - GI/Abdominal Exam GI & Abdominal Exam: Soft Additional comments: colostomy in place on left, no signs of infection around stoma - Exam Exam: absent: Scrotal Swelling, Uretheral Discharge External exam: absent: Erythema, Lacerations, Lesions - Extremities Exam Extremities Exam: Normal Inspection. absent: Pedal Edema - Neurological Exam Neurological Exam: Alert, Awake, Oriented x3 - Psychiatric Exam Psychiatric exam: Normal Affect, Normal Mood - Skin Skin Exam: Dry, Normal Color, Warm Assessment and Plan - Assessment and Plan (Free Text) Plan: 77 y/o male with a pmhx of rectal adenocarcinoma, emile-rectal mass, right inguinal hernias, chronic anemia, and BPH admitted for VRE urinary tract infection and perirectal abscess s/p perirectal mass biopsy on 04/23/18. Rectal Adenocarcinoma with perirectal abscess -Abd/pelvic CT on 04/15/18: IMPRESSION: abnormal hyperdense changes seen related to an irregularly thickened rectum suspicious for neoplasm with extension the left emile rectal/perianal/medical left buttock soft tissues. Abscess is not favored though not completely excluded here. No emphysematous changes are related or definitive fluid collection. -S/P perirectal mass biospy, EUA and rigid sigmoidoscopy on 04/23/18 -Rectal biopsy: rectal adenocarcinoma -Surgery lin' appreciated; No surgical interventions, possible radiation vs Chemo -As per administration XRT is not an option at this time -Hem Onc consult; for possible chemo therapy, f/u with Dr. Thompson -Consider Hospice -C/w pain management; Morphine and Percocet LYLE - likely post renal azotemia 2/2 urinary retention -BUN/Cr: normalized today sp heard insertion -monitor bun/cr and may obtain intermittent bladder scan, pre and post residual if retention recurs. -UA reviewed, UCx pending B/L hydronephrosis on CT -Afebrile -CT abd/pelvis: Gross bilateral hydronephrosis has increased potentially is a function of cystitis or neoplastic urinary bladder findings. -S/P Cystoscopy and B/L stent insertion on 04/23/18. S/p VRE Urinary Tract Infection -Urine cx 04/09/18: VRE, sensitive to linezolid -Repeat urine c&s: no growth -ID on board -S/p linezolid 600 mg Q12 PO for 7days Fistula/colostomy draining -s/p partial colectomy and colostomy bag -Surgery on board -Wound care on board for colostomy care Elevated BP -no hx HTN -Likely secondary to pain -Pain management with morphine -Monitor vitals BPH -on Flomax DVT prophylaxis -scds -Lovenox 40 mg SC qhs Code status -Full code
[2018-04-27] MEDS ORDERED: Oxycodone/Acetaminophen 5/325 mg Tab PO PRN (17:57)
[2018-04-27] MEDS: Enoxaparin 40 mg Syringe SC SCH (21:40)
--- NOTE | 2018-04-28 12:03 | CP.PCM.PN ---
Subjective - Date & Time of Evaluation Date of Evaluation: 04/28/18 Time of Evaluation: 09:50 - Subjective Subjective: Patient was seen and examined this morning at bedside. No acute event overnight , pain is well controlled on medication as per patient. Patient reports 4x urinating overnight w/o any difficulties, no heard. Patient ate this morning, denies any chest pain, SOB, dizziness or urinary symptoms. Objective - Vital Signs/Intake and Output Vital Signs (last 24 hours): Temp Pulse Resp BP Pulse Ox 98 F 57 L 20 130/68 96 04/28/18 08:35 04/28/18 08:35 04/28/18 08:35 04/28/18 08:35 04/28/18 08:35 - Medications Medications: Current Medications Enoxaparin Sodium (Lovenox) 40 mg SC HS [facility] PRN Reason: Protocol Last Admin: 04/27/18 21:40 Dose: 40 mg Morphine Sulfate (Morphine) 4 mg IVP Q4 PRN PRN Reason: Pain, severe (8-10) Morphine Sulfate (Morphine) 2 mg IVP Q4 PRN PRN Reason: Pain, moderate (4-7) Last Admin: 04/26/18 02:03 Dose: 2 mg Mupirocin (Bactroban Ointment) 1 applic TOP DAILY [facility] Last Admin: 04/28/18 09:09 Dose: 1 applic Ondansetron HCl (Zofran Odt) 4 mg PO Q8H PRN PRN Reason: Nausea/Vomiting Oxycodone/Acetaminophen (Percocet 5/325 Mg Tab) 1 tab PO TID PRN PRN Reason: Pain, moderate (4-7) Stop: 04/28/18 13:01 Tamsulosin HCl (Flomax) 0.4 mg PO DAILY [facility] Last Admin: 04/28/18 09:09 Dose: 0.4 mg - Labs Labs: 04/27/18 06:00 04/27/18 06:00 PT 10.7 Seconds (9.8-13.1) 04/23/18 05:40 INR 1.0 (0.9-1.2) 04/23/18 05:40 APTT 26.9 Seconds (25.6-37.1) 04/23/18 05:40 - Constitutional Appears: No Acute Distress - Head Exam Head Exam: NORMAL INSPECTION - Eye Exam Eye Exam: Normal appearance - ENT Exam ENT Exam: Mucous Membranes Moist - Respiratory Exam Respiratory Exam: Clear to Ausculation Bilateral, NORMAL BREATHING PATTERN - Cardiovascular Exam Cardiovascular Exam: REGULAR RHYTHM - GI/Abdominal Exam GI & Abdominal Exam: Soft Additional comments: colostomy in place on left with some non bloody output, no signs of infection around stoma - Exam Exam: NORMAL INSPECTION. absent: Scrotal Swelling, Testicular Tenderness, Bladder Distension - Extremities Exam Extremities Exam: Normal Capillary Refill, Normal Inspection - Back Exam Back Exam: absent: CVA tenderness (L), CVA tenderness (R) - Neurological Exam Neurological Exam: Alert, Awake, Oriented x3 - Psychiatric Exam Psychiatric exam: Normal Affect - Skin Skin Exam: Dry, Intact, Normal Color, Warm Assessment and Plan - Assessment and Plan (Free Text) Assessment: 77 y/o male with a pmhx of rectal adenocarcinoma, emile-rectal mass, right inguinal hernias, chronic anemia, and BPH admitted for VRE urinary tract infection and perirectal abscess s/p perirectal mass biopsy on 04/23/18. Rectal Adenocarcinoma with perirectal abscess -Abd/pelvic CT on 04/15/18: IMPRESSION: abnormal hyperdense changes seen related to an irregularly thickened rectum suspicious for neoplasm with extension the left emile rectal/perianal/medical left buttock soft tissues. Abscess is not favored though not completely excluded here. No emphysematous changes are related or definitive fluid collection. -S/P perirectal mass biospy, EUA and rigid sigmoidoscopy on 04/23/18 -Rectal biopsy: rectal adenocarcinoma -Surgery lin' appreciated; No surgical interventions, possible radiation vs Chemo -As per administration XRT is not an option at this time -Hem Onc consult; for possible chemo therapy, f/u with Dr. 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 -S/P Cystoscopy and B/L stent insertion on 04/23/18. S/p VRE Urinary Tract Infection -Urine cx 04/09/18: VRE, sensitive to linezolid -Repeat urine c&s: no growth -ID on board -S/p linezolid 600 mg Q12 PO for 7days Fistula/colostomy draining -s/p partial colectomy and colostomy bag -Surgery on board -Wound care on board for colostomy care Elevated BP -no hx HTN -Likely secondary to pain -Pain management with morphine -Monitor vitals BPH -on Flomax DVT prophylaxis -scds -Lovenox 40 mg SC qhs Code status -Full code
[2018-04-28 14:40] LABS: BASO % 0.6 % (0.0-2.0); EOS # 0.5 K/uL (0.0-0.7); EOS % 8.9 % (0.0-4.0); HEMOGLOBIN 9.7 g/dL (12.0-18.0); LYMPH # 1.1 K/uL (1.0-4.3); LYMPH % 19.9 % (20.0-40.0); MEAN CELL VOLUME 87.7 fl (80.0-94.0); MEAN CORPUSCULAR HEMOGLOBIN 29.8 pg (27.0-31.0); MEAN CORPUSCULAR HGB CONC 33.9 g/dL (33.0-37.0); MEAN PLATELET VOLUME 8.5 fl (7.2-11.7); MONO # 0.5 K/uL (0.0-0.8); MONO % 8.3 % (0.0-10.0); NEUT # 3.6 K/uL (1.8-7.0); NEUT % 62.3 % (50.0-75.0); NRBC % 0.1 % (0.0-0.0); RBC 3.26 Mil/uL (4.40-5.90); RED CELL DISTRIBUTION WIDTH 16.6 % (11.5-14.5); WHITE BLOOD COUNT 5.7 K/uL (4.8-10.8)
[2018-04-28] MEDS: Enoxaparin 40 mg Syringe SC SCH (21:26)
[2018-04-28] MEDS ORDERED: Oxycodone/Acetaminophen 5/325 mg Tab PO PRN (21:33)
[2018-04-29 06:18] LABS: BASO # 0.1 K/uL (0.0-0.2); BASO % 1.4 % (0.0-2.0); EOS # 0.6 K/uL (0.0-0.7); EOS % 12.5 % (0.0-4.0); HEMOGLOBIN 10.2 g/dL (12.0-18.0); LYMPH # 1.3 K/uL (1.0-4.3); LYMPH % 26.5 % (20.0-40.0); MEAN CELL VOLUME 88.2 fl (80.0-94.0); MEAN CORPUSCULAR HEMOGLOBIN 29.3 pg (27.0-31.0); MEAN CORPUSCULAR HGB CONC 33.2 g/dL (33.0-37.0); MEAN PLATELET VOLUME 8.2 fl (7.2-11.7); MONO # 0.4 K/uL (0.0-0.8); MONO % 8.1 % (0.0-10.0); NEUT # 2.6 K/uL (1.8-7.0); NEUT % 51.5 % (50.0-75.0); RBC 3.48 Mil/uL (4.40-5.90)
[2018-04-29 06:36] LABS: ALB/GLOB RATIO 0.8 (1.0-2.1); ALBUMIN 3.1 g/dL (3.5-5.0); ALT/SGPT 19 U/L (21-72); AST/SGOT 20 U/L (17-59); BLOOD UREA NITROGEN 15 mg/dl (9-20); CALCIUM 8.7 mg/dL (8.4-10.2); GFR AFRICAN-AMERICAN > 60; GFR NON-AFRICAN AMERICAN > 60
--- NOTE | 2018-04-29 09:16 | CP.PCM.PN ---
Subjective - Date & Time of Evaluation Date of Evaluation: 04/29/18 Time of Evaluation: 08:25 - Subjective Subjective: Patient seen and examined at bedside. NAD, no acute event overnight. Patient is voiding freely, denies any chest pain, SOB, dizziness or urinary symptoms. Pain is well controlled, good appetite. Objective - Vital Signs/Intake and Output Vital Signs (last 24 hours): Temp Pulse Resp BP Pulse Ox 97.7 F 55 L 20 135/65 98 04/29/18 08:00 04/29/18 08:00 04/29/18 08:00 04/29/18 08:00 04/29/18 08:00 Intake and Output: 04/29/18 04/29/18 06:59 18:59 Intake Total 800 Balance 800 - Medications Medications: Current Medications Enoxaparin Sodium (Lovenox) 40 mg SC HS [facility] PRN Reason: Protocol Last Admin: 04/28/18 21:26 Dose: Not Given Morphine Sulfate (Morphine) 4 mg IVP Q4 PRN PRN Reason: Pain, severe (8-10) Mupirocin (Bactroban Ointment) 1 applic TOP DAILY [facility] Last Admin: 04/29/18 08:42 Dose: 1 applic Ondansetron HCl (Zofran Odt) 4 mg PO Q8H PRN PRN Reason: Nausea/Vomiting Oxycodone/Acetaminophen (Percocet 5/325 Mg Tab) 1 tab PO Q4 PRN PRN Reason: Pain, moderate (4-7) Stop: 05/01/18 21:34 Last Admin: 04/28/18 21:47 Dose: 1 tab Tamsulosin HCl (Flomax) 0.4 mg PO DAILY [facility] Last Admin: 04/29/18 08:43 Dose: 0.4 mg - Labs Labs: 04/29/18 05:45 04/29/18 05:45 PT 10.7 Seconds (9.8-13.1) 04/23/18 05:40 INR 1.0 (0.9-1.2) 04/23/18 05:40 APTT 26.9 Seconds (25.6-37.1) 04/23/18 05:40 - Constitutional Appears: No Acute Distress - Head Exam Head Exam: NORMAL INSPECTION - Eye Exam Eye Exam: Normal appearance - Respiratory Exam Respiratory Exam: Clear to Ausculation Bilateral, NORMAL BREATHING PATTERN - Cardiovascular Exam Cardiovascular Exam: REGULAR RHYTHM, +S1, +S2 - GI/Abdominal Exam GI & Abdominal Exam: Soft. absent: Tenderness Additional comments: L Colostomy with output, other colostomy site covered with dressing, dry, intact - Extremities Exam Extremities Exam: Full ROM - Back Exam Back Exam: absent: CVA tenderness (L), CVA tenderness (R) - Neurological Exam Neurological Exam: Alert, Awake, Oriented x3 - Psychiatric Exam Psychiatric exam: Normal Affect - Skin Skin Exam: Normal Color Assessment and Plan - Assessment and Plan (Free Text) Assessment: A/P: 77 y/o male with a pmhx of rectal adenocarcinoma, emile-rectal mass, right inguinal hernias, chronic anemia, and BPH admitted for VRE urinary tract infection and perirectal abscess s/p perirectal mass biopsy on 04/23/18. Rectal Adenocarcinoma with perirectal abscess -Abd/pelvic CT on 04/15/18: IMPRESSION: abnormal hyperdense changes seen related to an irregularly thickened rectum suspicious for neoplasm with extension the left emile rectal/perianal/medical left buttock soft tissues. Abscess is not favored though not completely excluded here. No emphysematous changes are related or definitive fluid collection. -S/P perirectal mass biospy, EUA and rigid sigmoidoscopy on 04/23/18 -Rectal biopsy: rectal adenocarcinoma -Surgery lin' appreciated; No surgical interventions, possible radiation vs Chemo -As per administration XRT is not an option at this time -Hem Onc consult; for possible chemo therapy, f/u with Dr. Thompson -C/w pain management; Morphine and Percocet -Next plan of the treatments discussed with patient today. Medical options ( chemo, surgical) at [facility] Vs Hospice options discussed in presence of Dr. Fernandez. Risks and Benefits explained, all the questions were answered : [employer] american sign language interpreter (Angelia, [id number]) -Patient agrees with Hospice option, will follow up with LYLE - Improved , likely post renal azotemia 2/2 urinary retention - BUN/Cr: 15/0.9 B/L hydronephrosis on CT -Afebrile -CT abd/pelvis: Gross bilateral hydronephrosis has increased potentially is a function of cystitis or neoplastic urinary bladder findings. -S/P Cystoscopy and B/L stent insertion on 04/23/18. S/p VRE Urinary Tract Infection -Urine cx 04/09/18: VRE, sensitive to linezolid -Repeat urine c&s: no growth -ID on board -S/p linezolid 600 mg Q12 PO for 7days Fistula/colostomy draining -s/p partial colectomy and colostomy bag -Surgery on board -Wound care on board for colostomy care Elevated BP -no hx HTN -Likely secondary to pain -Pain management with morphine -Monitor vitals BPH -on Flomax DVT prophylaxis -scds -Lovenox 40 mg SC qhs Code status -Full code
[2018-04-29] MEDS: Enoxaparin 40 mg Syringe SC SCH ×2 (21:36→21:44)
--- NOTE | 2018-04-30 08:51 | CP.PCM.PN ---
Subjective - Date & Time of Evaluation Date of Evaluation: 04/30/18 Time of Evaluation: 07:45 - Subjective Subjective: Patient seen and examined this morning at bedside. Patient reports feeling little tired but slept well, tolerating PO intake, urinating with out any difficulties. patient denies any chest pain, SOB, abdominal pain or urinary symptoms. Objective - Vital Signs/Intake and Output Vital Signs (last 24 hours): Temp Pulse Resp BP Pulse Ox 98.0 F 65 20 173/88 H 97 04/30/18 08:03 04/30/18 08:03 04/30/18 08:03 04/30/18 08:03 04/30/18 08:03 Intake and Output: 04/30/18 04/30/18 06:59 18:59 Intake Total 800 Balance 800 - Medications Medications: Current Medications Enoxaparin Sodium (Lovenox) 40 mg SC HS [facility] PRN Reason: Protocol Last Admin: 04/29/18 21:44 Dose: 40 mg Morphine Sulfate (Morphine) 4 mg IVP Q4 PRN PRN Reason: Pain, severe (8-10) Mupirocin (Bactroban Ointment) 1 applic TOP DAILY [facility] Last Admin: 04/30/18 08:13 Dose: 1 applic Ondansetron HCl (Zofran Odt) 4 mg PO Q8H PRN PRN Reason: Nausea/Vomiting Oxycodone/Acetaminophen (Percocet 5/325 Mg Tab) 1 tab PO Q4 PRN PRN Reason: Pain, moderate (4-7) Stop: 05/01/18 21:34 Last Admin: 04/28/18 21:47 Dose: 1 tab Tamsulosin HCl (Flomax) 0.4 mg PO DAILY [facility] Last Admin: 04/30/18 08:14 Dose: 0.4 mg - Labs Labs: 04/29/18 05:45 04/29/18 05:45 PT 10.7 Seconds (9.8-13.1) 04/23/18 05:40 INR 1.0 (0.9-1.2) 04/23/18 05:40 APTT 26.9 Seconds (25.6-37.1) 04/23/18 05:40 - Constitutional Appears: No Acute Distress - Head Exam Head Exam: NORMAL INSPECTION - Eye Exam Eye Exam: Normal appearance - ENT Exam ENT Exam: Normal Exam - Neck Exam Neck Exam: Normal Inspection - Respiratory Exam Respiratory Exam: Clear to Ausculation Bilateral, NORMAL BREATHING PATTERN - Cardiovascular Exam Cardiovascular Exam: REGULAR RHYTHM - GI/Abdominal Exam GI & Abdominal Exam: Soft, Normal Bowel Sounds Additional comments: L Colostomy with output, other colostomy site covered with dressing, dry, intact , inguinal hernias - Extremities Exam Extremities Exam: Normal Inspection - Neurological Exam Neurological Exam: Alert, Awake, Oriented x3 - Psychiatric Exam Psychiatric exam: Flat Affect - Skin Skin Exam: Normal Color Assessment and Plan - Assessment and Plan (Free Text) Assessment: A/P: 77 y/o male with a pmhx of rectal adenocarcinoma, emile-rectal mass, right inguinal hernias, chronic anemia, and BPH admitted for VRE urinary tract infection and perirectal abscess s/p perirectal mass biopsy on 04/23/18. Rectal Adenocarcinoma with perirectal abscess -Abd/pelvic CT on 04/15/18: IMPRESSION: abnormal hyperdense changes seen related to an irregularly thickened rectum suspicious for neoplasm with extension the left emile rectal/perianal/medical left buttock soft tissues. Abscess is not favored though not completely excluded here. No emphysematous changes are related or definitive fluid collection. -S/P perirectal mass biospy, EUA and rigid sigmoidoscopy on 04/23/18 -Rectal biopsy: rectal adenocarcinoma -Surgery lin' appreciated; No surgical interventions, possible radiation vs Chemo -As per administration XRT is not an option at this time -Hem Onc consult; for possible chemo therapy, f/u with Dr. Thompson -C/w pain management; Morphine and Percocet -Next plan of the treatments discussed with patient 04/30/18. Medical options ( chemo, surgical) at [facility] Vs Hospice options discussed in presence of Dr. Fernandez. Risks and Benefits explained, all the questions were answered : [employer] healthcare interpreter (Angelia, [id number]) -Patient agrees with Hospice option, will follow up with LYLE - Improved , likely post renal azotemia 2/2 urinary retention - BUN/Cr: 15/0.9 on 04/29/18 B/L hydronephrosis on CT -Afebrile -CT abd/pelvis: Gross bilateral hydronephrosis has increased potentially is a function of cystitis or neoplastic urinary bladder findings. -S/P Cystoscopy and B/L stent insertion on 04/23/18. S/p VRE Urinary Tract Infection -Urine cx 04/09/18: VRE, sensitive to linezolid -Repeat urine c&s: no growth -ID on board -S/p linezolid 600 mg Q12 PO for 7days Fistula/colostomy draining -s/p partial colectomy and colostomy bag -Surgery on board -Wound care on board for colostomy care Elevated BP -no hx HTN -Likely secondary to pain -Pain management with morphine -Monitor vitals BPH -on Flomax DVT prophylaxis -scds -Lovenox 40 mg SC qhs Code status -Full code
[2018-04-30] MEDS ORDERED: Iohexol 240 (50 ml) PO ONE (16:26)
[2018-04-30] MEDS ORDERED: Iohexol 300 100 ML IJ ONE (19:12)
[2018-04-30] MEDS ORDERED: Sodium Chloride 0.9% 50 ML IV ONE (19:12)
[2018-04-30] MEDS: Enoxaparin 40 mg Syringe SC SCH (21:57)
--- NOTE | 2018-04-30 22:06 | CP.PCM.CON ---
History of Present Illness - History of Present Illness History of Present Illness: 77 year old homeless male with untreated rectal adenocarcinoma dx 01/2018 presenting with difficulty urinating and perirectal drainage. A plan for neoadjuvant chemotherapy and radiation was planned in the outpatient setting but the patient was lost to follow up. A CT C/A/P during this admission is negative for distant metastasis but shows local extension with involvement of the perineum. Past medical history: rectal adenocarcinoma Past surgical history: exploratory laparotomy, colostomy Family history: Denies hematologic and oncologic problems Social history: Denies tobacco, alcohol, and illicit drug use Allergies: NKA Review of systems: All remaining review of systems including HEENT, cardiovascular, respiratory, gastrointestinal, genitourinary, musculoskeletal, dermatologic, neurologic and psychiatric are negative unless mentioned in the HPI. Past Patient History - Infectious Disease Hx of Infectious Diseases: None - Past Medical History & Family History Past Medical History?: Yes - Past Social History Smoking Status: Never Smoked - CARDIAC Hx Hypertension: No - PULMONARY Hx Respiratory Disorders: No - NEUROLOGICAL Hx Seizures: No - HEENT Hx HEENT Problems: No - RENAL Hx Chronic Kidney Disease: No - ENDOCRINE/METABOLIC Hx Endocrine Disorders: No - HEMATOLOGICAL/ONCOLOGICAL Hx Human Immunodeficiency Virus (HIV): No - INTEGUMENTARY Hx Dermatological Problems: No - MUSCULOSKELETAL/RHEUMATOLOGICAL Hx Musculoskeletal Disorders: No Hx Falls: No - GASTROINTESTINAL Hx Gastrointestinal Disorders: Yes Hx Bowel Surgery: Yes (bowel resection) Hx Colostomy: Yes (x 2) Hx Ileostomy: Yes Other/Comment: bilatera Inguinal Hernia. Rectal bleeding, rectal adenocarcinoma - GENITOURINARY/GYNECOLOGICAL Hx Sexually Transmitted Disorders: No - PSYCHIATRIC Hx Psychophysiologic Disorder: No Hx Substance Use: No - SURGICAL HISTORY Hx Surgeries: Yes Other/Comment: colostomy - ANESTHESIA Hx Anesthesia: Yes Hx Anesthesia Reactions: No Hx Malignant Hyperthermia: No Meds Allergies/Adverse Reactions: Allergies Allergy/AdvReac Type Severity Reaction Status Date / Time No Known Allergies Allergy Verified 04/15/18 06:39 - Medications Medications: Current Medications Enoxaparin Sodium (Lovenox) 40 mg SC HS [facility] PRN Reason: Protocol Last Admin: 04/30/18 21:57 Dose: 40 mg Morphine Sulfate (Morphine) 4 mg IVP Q4 PRN PRN Reason: Pain, severe (8-10) Mupirocin (Bactroban Ointment) 1 applic TOP DAILY [facility] Last Admin: 04/30/18 08:13 Dose: 1 applic Ondansetron HCl (Zofran Odt) 4 mg PO Q8H PRN PRN Reason: Nausea/Vomiting Oxycodone/Acetaminophen (Percocet 5/325 Mg Tab) 1 tab PO Q4 PRN PRN Reason: Pain, moderate (4-7) Stop: 05/01/18 21:34 Last Admin: 04/28/18 21:47 Dose: 1 tab Tamsulosin HCl (Flomax) 0.4 mg PO DAILY [facility] Last Admin: 04/30/18 08:14 Dose: 0.4 mg Physical Exam - Head Exam Head Exam: ATRAUMATIC - Eye Exam Eye Exam: Normal appearance - ENT Exam ENT Exam: Mucous Membranes Dry - Respiratory Exam Respiratory Exam: NORMAL BREATHING PATTERN - Cardiovascular Exam Cardiovascular Exam: +S1, +S2 - GI/Abdominal Exam GI & Abdominal Exam: Normal Bowel Sounds - Extremities Exam Extremities exam: Positive for: normal inspection - Neurological Exam Neurological exam: Oriented x3 - Psychiatric Exam Psychiatric exam: Normal Affect, Normal Mood - Skin Skin Exam: Warm Results - Vital Signs Recent Vital Signs: Last Vital Signs Temp 97.8 F 04/30/18 15:58 Pulse 71 04/30/18 15:58 Resp 18 04/30/18 15:58 BP 103/52 L 04/30/18 15:58 Pulse Ox 97 04/30/18 15:58 - Labs Result Diagrams: 05/01/18 06:00 05/01/18 06:00 Assessment & Plan (1) Rectal cancer Assessment and Plan: local progression of his disease but no distant metastasis would recommend definitive chemotherapy + radiation; case discussed with radiation oncology Dr. Aragon outpatient treatment was not possible in the past as patient does not have the means to travel for f/u and treatment recommend social work evaluation if outpatient treatment not possible, would benefit from inpatient treatment Status: Acute (2) Anemia Assessment and Plan: recommend checking retic count, b12, folate ferritin Thank you for this interesting consult. Status: Acute
[2018-05-01 06:45] LABS: HEMOGLOBIN 9.9 g/dL (12.0-18.0); MEAN CELL VOLUME 87.2 fl (80.0-94.0); MEAN CORPUSCULAR HGB CONC 34.4 g/dL (33.0-37.0); RBC 3.3 Mil/uL (4.40-5.90); RED CELL DISTRIBUTION WIDTH 15.8 % (11.5-14.5); WHITE BLOOD COUNT 5.8 K/uL (4.8-10.8)
[2018-05-01 07:32] LABS: ALB/GLOB RATIO 0.9 (1.0-2.1); ALBUMIN 2.8 g/dL (3.5-5.0); ALT/SGPT 24 U/L (21-72); AST/SGOT 15 U/L (17-59); BLOOD UREA NITROGEN 15 mg/dl (9-20); CALCIUM 8.3 mg/dL (8.4-10.2); GFR AFRICAN-AMERICAN > 60; GFR NON-AFRICAN AMERICAN > 60
--- NOTE | 2018-05-01 08:28 | OP ---
PROCEDURE DATE: 04/23/18 PREOPERATIVE DIAGNOSIS: Abscess of the perineum. POSTOPERATIVE DIAGNOSIS: Probably tumor. SURGEON: Seamus Tyler MD HI LO DRIVER: Han Cleary DO DESCRIPTION OF PROCEDURE: In the operating room under lithotomy, the patient had a procedure done through Dr. Reyes. Thereafter, I took control of the operation, the ureteral catheters were placed. The area was prepped and draped and the time-out completed without issue. The left side of the perineum had draining sinuses, but also had nodularity. Squeezing the area, lot of adenomatous tissue was removed and was sent to the lab. This was clearly cancer. The nodule little bit superior to that an ellipse was taken, it was closed with Vicryl and sent to the lab. There was very little bleeding. The area was prepped and draped and dressed. The patient was taken to the recovery room in good condition after the sponge and needle counts were declared correct. Seamus Tyler MD
--- NOTE | 2018-05-01 08:47 | CP.PCM.PN ---
Subjective - Date & Time of Evaluation Date of Evaluation: 05/01/18 Time of Evaluation: 07:50 - Subjective Subjective: Patient seen and examined this morning at bedside. NAD, denies any acute event overnight. Reports good urine output without any difficulties. Denies any chest pain, SOB, urinary symptoms or weakness. Objective - Vital Signs/Intake and Output Vital Signs (last 24 hours): Temp Pulse Resp BP Pulse Ox 97.3 F L 62 20 149/72 97 05/01/18 08:07 05/01/18 08:07 05/01/18 08:07 05/01/18 08:07 05/01/18 08:07 - Medications Medications: Current Medications Enoxaparin Sodium (Lovenox) 40 mg SC HS [facility] PRN Reason: Protocol Last Admin: 04/30/18 21:57 Dose: 40 mg Morphine Sulfate (Morphine) 4 mg IVP Q4 PRN PRN Reason: Pain, severe (8-10) Mupirocin (Bactroban Ointment) 1 applic TOP DAILY [facility] Last Admin: 04/30/18 08:13 Dose: 1 applic Ondansetron HCl (Zofran Odt) 4 mg PO Q8H PRN PRN Reason: Nausea/Vomiting Oxycodone/Acetaminophen (Percocet 5/325 Mg Tab) 1 tab PO Q4 PRN PRN Reason: Pain, moderate (4-7) Stop: 05/01/18 21:34 Last Admin: 04/28/18 21:47 Dose: 1 tab Tamsulosin HCl (Flomax) 0.4 mg PO DAILY [facility] Last Admin: 04/30/18 08:14 Dose: 0.4 mg - Labs Labs: 05/01/18 06:00 05/01/18 06:00 PT 10.7 Seconds (9.8-13.1) 04/23/18 05:40 INR 1.0 (0.9-1.2) 04/23/18 05:40 APTT 26.9 Seconds (25.6-37.1) 04/23/18 05:40 - Constitutional Appears: No Acute Distress - Head Exam Head Exam: NORMAL INSPECTION - Eye Exam Eye Exam: Normal appearance - ENT Exam ENT Exam: Mucous Membranes Moist - Neck Exam Neck Exam: Normal Inspection - Respiratory Exam Respiratory Exam: Clear to Ausculation Bilateral, NORMAL BREATHING PATTERN - Cardiovascular Exam Cardiovascular Exam: REGULAR RHYTHM - GI/Abdominal Exam GI & Abdominal Exam: Soft. absent: Tenderness Additional comments: L Colostomy with output, other colostomy site covered with dressing, dry, intact , inguinal hernias Inguinal hernias - Extremities Exam Extremities Exam: Full ROM, Normal Capillary Refill, Normal Inspection - Back Exam Back Exam: NORMAL INSPECTION. absent: CVA tenderness (L), CVA tenderness (R) - Neurological Exam Neurological Exam: Alert, Awake, Oriented x3 - Psychiatric Exam Psychiatric exam: Normal Affect - Skin Skin Exam: Dry, Intact, Normal Color, Warm Assessment and Plan - Assessment and Plan (Free Text) Assessment: A/P: 77 y/o male with a pmhx of rectal adenocarcinoma, emile-rectal mass, right inguinal hernias, chronic anemia, and BPH admitted for VRE urinary tract infection and perirectal abscess s/p perirectal mass biopsy on 04/23/18. Rectal Adenocarcinoma with perirectal abscess -Abd/pelvic CT on 04/15/18: IMPRESSION: abnormal hyperdense changes seen related to an irregularly thickened rectum suspicious for neoplasm with extension the left emile rectal/perianal/medical left buttock soft tissues. Abscess is not favored though not completely excluded here. No emphysematous changes are related or definitive fluid collection. -S/P perirectal mass biospy, EUA and rigid sigmoidoscopy on 04/23/18 -Rectal biopsy: rectal adenocarcinoma -Surgery lin' appreciated; No surgical interventions, possible radiation vs Chemo -As per administration XRT is not an option at this time -Hem Onc consult; for possible chemo therapy, f/u with Dr. Thompson -C/w pain management; Morphine and Percocet -Next plan of the treatments discussed with patient 04/30/18. Medical options ( chemo, surgical) at [facility] Vs Hospice options discussed in presence of Dr. Fernandez. Risks and Benefits explained, all the questions were answered : [email or web address] certified court/medical interpreter (Angelia, [id number]) -Patient agrees with Hospice option, will follow up with SW -CT abdo/pelvis/chest ordered yesterday, as per Dr. Thompson -F/u CT official report [facility] - Improved , likely post renal azotemia 2/2 urinary retention - BUN/Cr: 15/0.9 on 05/01 B/L hydronephrosis on CT -Afebrile -CT abd/pelvis: Gross bilateral hydronephrosis has increased potentially is a function of cystitis or neoplastic urinary bladder findings. -S/P Cystoscopy and B/L stent insertion on 04/23/18. S/p VRE Urinary Tract Infection -Urine cx 04/09/18: VRE, sensitive to linezolid -Repeat urine c&s: no growth -ID on board -S/p linezolid 600 mg Q12 PO for 7days Fistula/colostomy draining -s/p partial colectomy and colostomy bag -Surgery on board -Wound care on board for colostomy care Elevated BP -no hx HTN -Likely secondary to pain -Pain management with morphine -Monitor vitals BPH -on Flomax DVT prophylaxis -scds -Lovenox 40 mg SC qhs DNR
--- NOTE | 2018-05-01 12:58 | CT ---
PROCEDURE: CT Chest, Abdomen and Pelvis with intravenous contrast HISTORY: malignancy, r/o mets COMPARISON: 04/15/2018 TECHNIQUE: IV dose administered: 90 mL Omnipaque 300 Radiation dose: Total exam DLP = 478 mGy-cm. This CT exam was performed using one or more of the following dose reduction techniques: Automated exposure control, adjustment of the mA and/or kV according to patient size, and/or use of iterative reconstruction technique. FINDINGS: CT CHEST WITH CONTRAST: LUNGS: . No nodule, mass. Minimal posterior subpleural atelectatic changes contiguous with the posterior left pleural thickening/trace posterior pleural fluid MEDIASTINUM: Unremarkable. Normal caliber aorta and pulmonary arterial trunk. No aortic dissection. Normal size heart. LYMPH NODES: Unremarkable. PLEURA: No pneumothorax .Minimal posterior subpleural atelectatic changes contiguous with the posterior left pleural thickening/trace posterior pleural fluid BONES: Senescent changes OTHER FINDINGS: None. CT ABDOMEN AND PELVIS: LIVER: Unremarkable. No gross lesion or ductal dilatation. GALLBLADDER AND BILE DUCTS: Unremarkable. PANCREAS: Unremarkable. No gross lesion or ductal dilatation. SPLEEN: Unremarkable. ADRENALS: Unremarkable. No mass. KIDNEYS AND URETERS: Bilateral hydronephrosis renoted. Interval bilateral double-J ureteral stents. Bilateral hydroureter. Possible left periureteral inflammatory change. Prior study without stents Right lower renal pole exophytic 10 cm cyst -similar VASCULATURE: No aortic aneurysm. 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 Concomitant appendix inclusion not excluded no gross pericolonic inflammatory changes here. No proximal dilatation to suggest high-grade obstruction. Hernia extends into the right scrotum. Left groin hernia no gross bowel contrast laden contents noted. -however non-opacified nondistended contents not excluded. (Findings blend into the left hemiscrotal sac and blend also with the a amorphous heterogeneous left medial buttock phlegmonous appearing a amorphous process contiguous left medial buttock perennial skin thickening. Cellulitis here inferred. Correlate clinically. Appearance is similar to prior study . Locules appears small no larger gross drainable collection appreciated. APPENDIX: Not clearly identified possibly within the right or right groin/scrotal herniated contents PERITONEUM: As above left perineal / left medial buttock amorphous phlegmon similar LYMPH NODES: . No enlarged lymph nodes. BLADDER: Moderately distended with thickened wall-similar REPRODUCTIVE: Enlarged prostate -possibly contributing to bladder outlet obstruction -as noted previously BONES: No acute fracture. Senescent spondylosis changes OTHER FINDINGS: None. IMPRESSION: No liver or adrenal metastases. No pulmonary nodular metastases No osseous pathological fractures appreciated Multiple GI related findings as referenced above. No complete bowel obstruction appreciated Bilateral hydronephrosis and hydroureter with interval ureteral stents in place. Moderate bladder distention -possible bladder outlet obstruction given enlarged prostate and similar bilateral hydroureter/hydronephrosis status. A concomitant bladder mass not excluded
[2018-05-01] MEDS: Enoxaparin 40 mg Syringe SC SCH (21:27)
--- NOTE | 2018-05-02 10:05 | CP.PCM.PN ---
Subjective - Date & Time of Evaluation Date of Evaluation: 05/02/18 Time of Evaluation: 07:20 - Subjective Subjective: Patient seen and examined this morning, NAD. Patient reports no acute event overnight, urinating w/o any difficulties, tolerating PO. Improved rectal abscess pain, ambulating, denies chest pain, SOB, abdominal pain, dizziness or weakness. Objective - Vital Signs/Intake and Output Vital Signs (last 24 hours): Temp Pulse Resp BP Pulse Ox 98 F 69 18 155/77 H 98 05/02/18 07:55 05/02/18 07:55 05/02/18 07:55 05/02/18 07:55 05/02/18 07:55 - Medications Medications: Current Medications Enoxaparin Sodium (Lovenox) 40 mg SC HS [facility] PRN Reason: Protocol Last Admin: 05/01/18 21:27 Dose: 40 mg Morphine Sulfate (Morphine) 4 mg IVP Q4 PRN PRN Reason: Pain, severe (8-10) Mupirocin (Bactroban Ointment) 1 applic TOP DAILY [facility] Last Admin: 05/02/18 09:13 Dose: 1 applic Ondansetron HCl (Zofran Odt) 4 mg PO Q8H PRN PRN Reason: Nausea/Vomiting Tamsulosin HCl (Flomax) 0.4 mg PO DAILY [facility] Last Admin: 05/02/18 09:13 Dose: 0.4 mg - Labs Labs: 05/01/18 06:00 05/01/18 06:00 PT 10.7 Seconds (9.8-13.1) 04/23/18 05:40 INR 1.0 (0.9-1.2) 04/23/18 05:40 APTT 26.9 Seconds (25.6-37.1) 04/23/18 05:40 - Constitutional Appears: No Acute Distress - Head Exam Head Exam: NORMAL INSPECTION - Eye Exam Eye Exam: Normal appearance - ENT Exam ENT Exam: Mucous Membranes Moist - Neck Exam Neck Exam: Normal Inspection - Respiratory Exam Respiratory Exam: Clear to Ausculation Bilateral, NORMAL BREATHING PATTERN - Cardiovascular Exam Cardiovascular Exam: REGULAR RHYTHM - GI/Abdominal Exam GI & Abdominal Exam: Soft Additional comments: L Colostomy with output, other colostomy site covered with dressing, dry, intact , inguinal hernias - Rectal Exam Additional comments: Viji rectal abscess/mass (f.u wound care lin') - Extremities Exam Extremities Exam: Full ROM, Normal Inspection - Back Exam Back Exam: NORMAL INSPECTION. absent: CVA tenderness (L), CVA tenderness (R) - Neurological Exam Neurological Exam: Alert, Awake, Normal Gait, Oriented x3 - Psychiatric Exam Psychiatric exam: Normal Affect - Skin Skin Exam: Normal Color Assessment and Plan - Assessment and Plan (Free Text) Assessment: A/P: 77 y/o male with a pmhx of rectal adenocarcinoma, viji-rectal mass, right inguinal hernias, chronic anemia, and BPH admitted for VRE urinary tract infection and perirectal abscess s/p perirectal mass biopsy on 04/23/18. Rectal Adenocarcinoma with perirectal abscess -Abd/pelvic CT on 04/15/18: IMPRESSION: abnormal hyperdense changes seen related to an irregularly thickened rectum suspicious for neoplasm with extension the left viji rectal/perianal/medical left buttock soft tissues. Abscess is not favored though not completely excluded here. No emphysematous changes are related or definitive fluid collection. -S/P perirectal mass biospy, EUA and rigid sigmoidoscopy on 04/23/18 -Rectal biopsy: rectal adenocarcinoma -Surgery lin' appreciated; No surgical interventions, possible radiation vs Chemo -As per administration XRT is not an option at this time -C/w pain management; Morphine and Percocet -04/30/18; Medical options (chemo, surgical) at [facility] Vs Hospice options discussed in presence of Dr. Fernandez. 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 -Hem Onc consult; Dr. Thompson appreciated for further management: 05/02/18, "local progression of his disease but no distant metastasis, recommend definitive chemotherapy + radiation; case discussed with radiation oncology Dr. 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 -S/P Cystoscopy and B/L stent insertion on 04/23/18. S/p VRE Urinary Tract Infection -Urine cx 04/09/18: VRE, sensitive to linezolid -Repeat urine c&s: no growth -ID on board -S/p linezolid 600 mg Q12 PO for 7days Fistula/colostomy draining -s/p partial colectomy and colostomy bag -Surgery on board -Wound care on board for colostomy care Elevated BP -no hx HTN -Likely secondary to pain -Pain management with morphine -Monitor vitals BPH -on Flomax DVT prophylaxis -Scds -Lovenox 40 mg SC qhs DNR/DNI
[2018-05-02] MEDS: Enoxaparin 40 mg Syringe SC SCH (22:08)
[2018-05-03 06:32] LABS: BASO # 0.1 K/uL (0.0-0.2); BASO % 1.1 % (0.0-2.0); EOS # 0.6 K/uL (0.0-0.7); EOS % 8.6 % (0.0-4.0); HEMOGLOBIN 10.5 g/dL (12.0-18.0); LYMPH # 1.4 K/uL (1.0-4.3); LYMPH % 19.6 % (20.0-40.0); MEAN CELL VOLUME 88.1 fl (80.0-94.0); MEAN CORPUSCULAR HEMOGLOBIN 29.4 pg (27.0-31.0); MEAN CORPUSCULAR HGB CONC 33.4 g/dL (33.0-37.0); MEAN PLATELET VOLUME 7.8 fl (7.2-11.7); MONO # 0.6 K/uL (0.0-0.8); MONO % 7.6 % (0.0-10.0); NEUT # 4.7 K/uL (1.8-7.0); NEUT % 63.1 % (50.0-75.0); NRBC % 0.1 % (0.0-0.0); RBC 3.56 Mil/uL (4.40-5.90); RED CELL DISTRIBUTION WIDTH 16.1 % (11.5-14.5); WHITE BLOOD COUNT 7.4 K/uL (4.8-10.8)
--- NOTE | 2018-05-03 09:21 | CP.PCM.PN ---
<Tracy Miranda - Last Filed: 05/03/18 16:59> Subjective - Date & Time of Evaluation Date of Evaluation: 05/03/18 Time of Evaluation: 07:45 - Subjective Subjective: Patient seen and examined this morning, NAD. Patient reports no acute event overnight, urinating w/o any difficulties, tolerating PO. Improved rectal abscess pain, ambulating, denies chest pain, SOB, abdominal pain, dizziness or weakness. Objective - Vital Signs/Intake and Output Vital Signs (last 24 hours): Temp Pulse Resp BP Pulse Ox 97.7 F 64 19 133/75 98 05/03/18 07:47 05/03/18 07:47 05/03/18 07:47 05/03/18 07:47 05/03/18 07:47 - Medications Medications: Current Medications Enoxaparin Sodium (Lovenox) 40 mg SC HS [facility] PRN Reason: Protocol Last Admin: 05/02/18 22:08 Dose: 40 mg Morphine Sulfate (Morphine) 4 mg IVP Q4 PRN PRN Reason: Pain, severe (8-10) Mupirocin (Bactroban Ointment) 1 applic TOP DAILY [facility] Last Admin: 05/03/18 08:38 Dose: 1 applic Ondansetron HCl (Zofran Odt) 4 mg PO Q8H PRN PRN Reason: Nausea/Vomiting Tamsulosin HCl (Flomax) 0.4 mg PO DAILY [facility] Last Admin: 05/03/18 08:38 Dose: 0.4 mg - Labs Labs: 05/03/18 06:05 05/01/18 06:00 PT 10.7 Seconds (9.8-13.1) 04/23/18 05:40 INR 1.0 (0.9-1.2) 04/23/18 05:40 APTT 26.9 Seconds (25.6-37.1) 04/23/18 05:40 - Constitutional Appears: No Acute Distress - Head Exam Head Exam: NORMAL INSPECTION - Eye Exam Eye Exam: Normal appearance, PERRL Pupil Exam: NORMAL ACCOMODATION - ENT Exam ENT Exam: Mucous Membranes Moist - Neck Exam Neck Exam: Normal Inspection - Respiratory Exam Respiratory Exam: Clear to Ausculation Bilateral, NORMAL BREATHING PATTERN - Cardiovascular Exam Cardiovascular Exam: REGULAR RHYTHM - GI/Abdominal Exam Additional comments: L Colostomy with output, other colostomy site covered with dressing, dry, intact , inguinal hernias - Rectal Exam Additional comments: Viji rectal abscess/mass (f.u wound care lin') - Extremities Exam Extremities Exam: Full ROM, Normal Capillary Refill, Normal Inspection - Back Exam Back Exam: NORMAL INSPECTION. absent: CVA tenderness (L), CVA tenderness (R) - Neurological Exam Neurological Exam: Alert, Awake, Normal Gait, Oriented x3 - Psychiatric Exam Psychiatric exam: Normal Affect - Skin Skin Exam: Dry, Intact, Normal Color, Warm Assessment and Plan - Assessment and Plan (Free Text) Assessment: A/P: 77 y/o male with a pmhx of rectal adenocarcinoma, viji-rectal mass, right inguinal hernias, chronic anemia, and BPH admitted for VRE urinary tract infection and perirectal abscess s/p perirectal mass biopsy on 04/23/18. Rectal Adenocarcinoma with perirectal abscess -Abd/pelvic CT on 04/15/18: IMPRESSION: abnormal hyperdense changes seen related to an irregularly thickened rectum suspicious for neoplasm with extension the left viji rectal/perianal/medical left buttock soft tissues. Abscess is not favored though not completely excluded here. No emphysematous changes are related or definitive fluid collection. -S/P perirectal mass biospy, EUA and rigid sigmoidoscopy on 04/23/18 -Rectal biopsy: rectal adenocarcinoma -Surgery lin' appreciated; No surgical interventions, possible radiation vs Chemo -As per administration (04/28/18) XRT is not an option at this time -Pain management; Morphine -C/w wound care management -04/30/18; Medical options (chemo, surgical) at [facility] Vs Hospice options discussed in presence of Dr. Fernandez. 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 -Hem Onc consult; Dr. Thompson appreciated for further management: 05/02/18, "local progression of his disease but no distant metastasis, recommend definitive chemotherapy + radiation; case discussed with radiation oncology Dr. Aragon, outpatient treatment not possible in the past as patient does not have the means to travel for f/u and treatment.patient would benefit from inpatient treatment" -Administration 05/03/18: Patient is approved for chemo -Follow up surgery consult for Chemo Port placement -Retic count 1.6, B12 393, Folate 9.6 , Ferritin 118, CEA 2.3 LYLE - Improved , likely post renal azotemia 2/2 urinary retention - BUN/Cr: 15/0.9 on 05/01 B/L hydronephrosis on CT -Afebrile -CT abd/pelvis: Gross bilateral hydronephrosis has increased potentially is a function of cystitis or neoplastic urinary bladder findings. -S/P Cystoscopy and B/L stent insertion on 04/23/18. S/p VRE Urinary Tract Infection -Urine cx 04/09/18: VRE, sensitive to linezolid -Repeat urine c&s: no growth -ID on board -S/p linezolid 600 mg Q12 PO for 7days Fistula/colostomy draining -s/p partial colectomy and colostomy bag -Surgery on board -Wound care on board for colostomy care Elevated BP -no hx HTN -Likely secondary to pain -Pain management with morphine -Monitor vitals BPH -on Flomax DVT prophylaxis -Scds -Lovenox 40 mg SC qhs DNR/DNI <Negar Mckinley - Last Filed: 05/04/18 08:53> Objective - Vital Signs/Intake and Output Vital Signs (last 24 hours): Temp Pulse Resp BP Pulse Ox 97.5 F L 62 19 124/65 97 05/04/18 07:56 05/04/18 07:56 05/04/18 07:56 05/04/18 07:56 05/04/18 07:56 - Medications Medications: Current Medications Enoxaparin Sodium (Lovenox) 40 mg SC HS [facility] PRN Reason: Protocol Last Admin: 05/03/18 21:54 Dose: 40 mg Morphine Sulfate (Morphine) 4 mg IVP Q4 PRN PRN Reason: Pain, severe (8-10) Mupirocin (Bactroban Ointment) 1 applic TOP DAILY [facility] Last Admin: 05/03/18 08:38 Dose: 1 applic Ondansetron HCl (Zofran Odt) 4 mg PO Q8H PRN PRN Reason: Nausea/Vomiting Tamsulosin HCl (Flomax) 0.4 mg PO DAILY [facility] Last Admin: 05/03/18 08:38 Dose: 0.4 mg - Labs Labs: 05/04/18 05:20 05/04/18 05:20 PT 10.8 Seconds (9.8-13.1) 05/04/18 04:00 INR 1.0 (0.9-1.2) 05/04/18 04:00 APTT 29.1 Seconds (25.6-37.1) 05/04/18 04:00 Attending/Attestation - Attestation I have personally seen and examined this patient.: Yes I have fully participated in the care of the patient.: Yes I have reviewed all pertinent clinical information, including history, physical exam and plan: Yes
[2018-05-03 13:24] LABS: FOLATE 9.6 ng/mL
--- NOTE | 2018-05-03 18:46 | CP.PCM.PCO ---
Physician Communication Note - Physician Communication Note Physician Communication Note: Surgery team reconsulted for Port-a-cath placement Assessment/Plan - Assessment and Plan (Free Text) Assessment: 77yo M with rectal adenocarcinoma, locally infiltrative. No evidence of distant metastases. Surgery re-consulted for port-a-cath placement. Plan: - Discussed case with Heme/Onc, Dr. Thompson. Patient is currently a candidate for Chemotherapy and/or Radiation therapy - If patient is agreeable, we will tentatively schedule for OR Sunday afternoon for Port placement - NPO past midnight Sunday - Continue current management as per medical team Further recs as per Dr. Jayson Foreman PGY1 surgery Pager: [phone]
[2018-05-03] MEDS: Enoxaparin 40 mg Syringe SC SCH (21:54)
[2018-05-04 07:32] LABS: HEMOGLOBIN 9.5 g/dL (12.0-18.0); MEAN CELL VOLUME 88.7 fl (80.0-94.0); MEAN CORPUSCULAR HEMOGLOBIN 29.5 pg (27.0-31.0); MEAN CORPUSCULAR HGB CONC 33.2 g/dL (33.0-37.0); RBC 3.23 Mil/uL (4.40-5.90); RED CELL DISTRIBUTION WIDTH 16.4 % (11.5-14.5); WHITE BLOOD COUNT 7.3 K/uL (4.8-10.8)
[2018-05-04 07:43] LABS: ALB/GLOB RATIO 0.9 (1.0-2.1); ALBUMIN 2.8 g/dL (3.5-5.0); ALT/SGPT 25 U/L (21-72); AST/SGOT 17 U/L (17-59); BLOOD UREA NITROGEN 16 mg/dl (9-20); CALCIUM 8.2 mg/dL (8.4-10.2); GFR AFRICAN-AMERICAN > 60; GFR NON-AFRICAN AMERICAN > 60
[2018-05-04 07:49] LABS: PARTIAL THROMBOPLASTIN TIME 29.1 Seconds (25.6-37.1); PROTHROMBIN TIME 10.8 Seconds (9.8-13.1)
--- NOTE | 2018-05-04 12:43 | CP.PCM.PN ---
<Luis Clay - Last Filed: 05/04/18 12:41> Subjective - Date & Time of Evaluation Date of Evaluation: 05/04/18 Time of Evaluation: 09:30 - Subjective Subjective: Patient seen and examined this morning, NAD. Patient reports no acute event overnight, urinating w/o any difficulties, tolerating PO. Denies pain, ambulating w/o difficulty, denies chest pain, SOB, abdominal pain, dizziness or weakness. Objective - Vital Signs/Intake and Output Vital Signs (last 24 hours): Temp Pulse Resp BP Pulse Ox 97.5 F L 62 19 124/65 97 05/04/18 09:00 05/04/18 09:00 05/04/18 07:56 05/04/18 09:00 05/04/18 09:00 - Medications Medications: Current Medications Enoxaparin Sodium (Lovenox) 40 mg SC HS [facility] PRN Reason: Protocol Last Admin: 05/03/18 21:54 Dose: 40 mg Morphine Sulfate (Morphine) 4 mg IVP Q4 PRN PRN Reason: Pain, severe (8-10) Mupirocin (Bactroban Ointment) 1 applic TOP DAILY [facility] Last Admin: 05/04/18 09:12 Dose: 1 applic Ondansetron HCl (Zofran Odt) 4 mg PO Q8H PRN PRN Reason: Nausea/Vomiting Tamsulosin HCl (Flomax) 0.4 mg PO DAILY [facility] Last Admin: 05/04/18 09:12 Dose: 0.4 mg - Labs Labs: 05/04/18 05:20 05/04/18 05:20 PT 10.8 Seconds (9.8-13.1) 05/04/18 04:00 INR 1.0 (0.9-1.2) 05/04/18 04:00 APTT 29.1 Seconds (25.6-37.1) 05/04/18 04:00 - Constitutional Appears: No Acute Distress, Chronically Ill - Head Exam Head Exam: ATRAUMATIC - Eye Exam Eye Exam: EOMI - ENT Exam ENT Exam: Mucous Membranes Moist - Neck Exam Neck Exam: Full ROM - Respiratory Exam Respiratory Exam: Clear to Ausculation Bilateral - Cardiovascular Exam Cardiovascular Exam: +S1, +S2 - GI/Abdominal Exam GI & Abdominal Exam: Soft Additional comments: ostomy c/d/i - Extremities Exam Extremities Exam: Full ROM, Normal Inspection. absent: Calf Tenderness, Pedal Edema, Tenderness - Neurological Exam Neurological Exam: Alert, Awake, Oriented x3 Neuro motor strength exam: Left Upper Extremity: 5, Right Upper Extremity: 5, Left Lower Extremity: 5, Right Lower Extremity: 5 - Psychiatric Exam Psychiatric exam: Normal Affect, Normal Mood - Skin Skin Exam: Dry, Normal Color, Warm Assessment and Plan - Assessment and Plan (Free Text) Plan: A/P: 77 y/o male with a pmhx of rectal adenocarcinoma, emile-rectal mass, right inguinal hernias, chronic anemia, and BPH admitted for VRE urinary tract infection and perirectal abscess s/p perirectal mass biopsy on 04/23/18. Rectal Adenocarcinoma with perirectal abscess -Abd/pelvic CT on 04/15/18: IMPRESSION: abnormal hyperdense changes seen related to an irregularly thickened rectum suspicious for neoplasm with extension the left emile rectal/perianal/medical left buttock soft tissues. Abscess is not favored though not completely excluded here. No emphysematous changes are related or definitive fluid collection. -S/P perirectal mass biospy, EUA and rigid sigmoidoscopy on 04/23/18 -Rectal biopsy: rectal adenocarcinoma -Surgery lin' appreciated; No surgical interventions, possible radiation vs Chemo -As per administration (04/28/18) XRT is not an option at this time -Pain management; Morphine -C/w wound care management -04/30/18; Medical options (chemo, surgical) at [facility] Vs Hospice options discussed in presence of Dr. Fernandez. 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 -Hem Onc consult; Dr. Thompson appreciated for further management: 05/02/18, "local progression of his disease but no distant metastasis, recommend definitive chemotherapy + radiation; case discussed with radiation oncology Dr. Aragon, outpatient treatment not possible in the past as patient does not have the means to travel for f/u and treatment.patient would benefit from inpatient treatment" -Administration 05/03/18: Patient is approved for chemo -Chemo Port placement possibly Sunday -Retic count 1.6, B12 393, Folate 9.6 , Ferritin 118, CEA 2.3 LYLE - Improved , likely post renal azotemia 2/2 urinary retention - BUN/Cr: 15/0.9 on 05/01 B/L hydronephrosis on CT -Afebrile -CT abd/pelvis: Gross bilateral hydronephrosis has increased potentially is a function of cystitis or neoplastic urinary bladder findings. -S/P Cystoscopy and B/L stent insertion on 04/23/18. S/p VRE Urinary Tract Infection -Urine cx 04/09/18: VRE, sensitive to linezolid -Repeat urine c&s: no growth -ID on board -S/p linezolid 600 mg Q12 PO for 7days Fistula/colostomy draining -s/p partial colectomy and colostomy bag -Surgery on board -Wound care on board for colostomy care Elevated BP -no hx HTN -Likely secondary to pain -Pain management with morphine -Monitor vitals BPH -on Flomax DVT prophylaxis -Scds -Lovenox 40 mg SC qhs DNR/DNI <Negar Mckinley - Last Filed: 05/05/18 09:08> Objective - Vital Signs/Intake and Output Vital Signs (last 24 hours): Temp Pulse Resp BP Pulse Ox 97.9 F 63 18 139/85 99 05/05/18 08:05 05/05/18 08:05 05/05/18 08:05 05/05/18 08:05 05/05/18 08:05 - Medications Medications: Current Medications Enoxaparin Sodium (Lovenox) 40 mg SC HS [facility] PRN Reason: Protocol Last Admin: 05/04/18 21:07 Dose: 40 mg Morphine Sulfate (Morphine) 4 mg IVP Q4 PRN PRN Reason: Pain, severe (8-10) Mupirocin (Bactroban Ointment) 1 applic TOP DAILY [facility] Last Admin: 05/05/18 08:23 Dose: 1 applic Ondansetron HCl (Zofran Odt) 4 mg PO Q8H PRN PRN Reason: Nausea/Vomiting Tamsulosin HCl (Flomax) 0.4 mg PO DAILY [facility] Last Admin: 05/05/18 08:22 Dose: 0.4 mg - Labs Labs: 05/04/18 05:20 05/04/18 05:20 PT 10.8 Seconds (9.8-13.1) 05/04/18 04:00 INR 1.0 (0.9-1.2) 05/04/18 04:00 APTT 29.1 Seconds (25.6-37.1) 05/04/18 04:00 Attending/Attestation - Attestation I have personally seen and examined this patient.: Yes I have fully participated in the care of the patient.: Yes I have reviewed all pertinent clinical information, including history, physical exam and plan: Yes Notes (Text): 05/05/18 09:07 Attestation ATtending note. Patient seen and examined. Case discussed with resident. Chart reviewed.
--- NOTE | 2018-05-04 17:13 | CP.PCM.PN ---
Subjective - Date & Time of Evaluation Date of Evaluation: 05/04/18 Time of Evaluation: 16:11 - Subjective Subjective: Surgery Progress note. Dr. Tyler Pt seen and examined at bedside. Patient is aware that he is approved for chemo and is agreeable to undergo surgery for port placement. He denies any complaints at this time. Objective - Vital Signs/Intake and Output Vital Signs (last 24 hours): Temp Pulse Resp BP Pulse Ox 98.1 F 60 20 125/68 95 05/04/18 16:04 05/04/18 16:04 05/04/18 16:04 05/04/18 16:04 05/04/18 16:04 - Medications Medications: Current Medications Enoxaparin Sodium (Lovenox) 40 mg SC HS [facility] PRN Reason: Protocol Last Admin: 05/03/18 21:54 Dose: 40 mg Morphine Sulfate (Morphine) 4 mg IVP Q4 PRN PRN Reason: Pain, severe (8-10) Mupirocin (Bactroban Ointment) 1 applic TOP DAILY [facility] Last Admin: 05/04/18 09:12 Dose: 1 applic Ondansetron HCl (Zofran Odt) 4 mg PO Q8H PRN PRN Reason: Nausea/Vomiting Tamsulosin HCl (Flomax) 0.4 mg PO DAILY [facility] Last Admin: 05/04/18 09:12 Dose: 0.4 mg - Labs Labs: 05/04/18 05:20 05/04/18 05:20 PT 10.8 Seconds (9.8-13.1) 05/04/18 04:00 INR 1.0 (0.9-1.2) 05/04/18 04:00 APTT 29.1 Seconds (25.6-37.1) 05/04/18 04:00 - Constitutional Appears: Non-toxic, No Acute Distress - Head Exam Head Exam: ATRAUMATIC, NORMAL INSPECTION, NORMOCEPHALIC - Eye Exam Eye Exam: EOMI, Normal appearance. absent: Scleral icterus - ENT Exam ENT Exam: Mucous Membranes Moist - Respiratory Exam Respiratory Exam: NORMAL BREATHING PATTERN. absent: Accessory Muscle Use, Respiratory Distress - GI/Abdominal Exam GI & Abdominal Exam: Soft. absent: Distended, Guarding, Rigid, Tenderness Additional comments: ostomy in place - Neurological Exam Neurological Exam: Alert, Awake, Oriented x3 Assessment and Plan - Assessment and Plan (Free Text) Assessment: 77yo M with rectal adenocarcinoma, locally infiltrative. No evidence of distant metastases. Surgery re-consulted for port-a-cath placement. Plan: - As per Heme/Onc, Patient is a candidate for Chemotherapy and/or Radiation therapy - Tentatively scheduled for OR Sunday afternoon for Port placement - NPO past midnight Sunday - Detailed discussion held with patient about risks and benefits of surgery. Patient understands and agrees with plan. Consent obtained and on chart - Continue current management as per medical team Further recs as per Dr. Jayson Foreman PGY1 surgery Pager: [phone]
[2018-05-04] MEDS: Enoxaparin 40 mg Syringe SC SCH (21:07)
--- NOTE | 2018-05-05 11:15 | CP.PCM.PN ---
<Tracy Miranda - Last Filed: 05/05/18 12:00> Subjective - Date & Time of Evaluation Date of Evaluation: 05/05/18 Time of Evaluation: 10:30 - Subjective Subjective: Patient seen and examined this morning. NAD, Patient reports no acute event overnight, urinating w/o any difficulties, tolerating PO. Improved rectal abscess pain, ambulating, denies chest pain, SOB, abdominal pain, dizziness or weakness. Objective - Vital Signs/Intake and Output Vital Signs (last 24 hours): Temp Pulse Resp BP Pulse Ox 97.9 F 63 18 139/85 99 05/05/18 09:00 05/05/18 09:00 05/05/18 09:00 05/05/18 09:00 05/05/18 09:00 - Medications Medications: Current Medications Enoxaparin Sodium (Lovenox) 40 mg SC HS [facility] PRN Reason: Protocol Last Admin: 05/04/18 21:07 Dose: 40 mg Morphine Sulfate (Morphine) 4 mg IVP Q4 PRN PRN Reason: Pain, severe (8-10) Mupirocin (Bactroban Ointment) 1 applic TOP DAILY [facility] Last Admin: 05/05/18 08:23 Dose: 1 applic Ondansetron HCl (Zofran Odt) 4 mg PO Q8H PRN PRN Reason: Nausea/Vomiting Potassium Chloride (K-Dur 20 Meq Er Tab) 40 meq PO DAILY [facility] Tamsulosin HCl (Flomax) 0.4 mg PO DAILY [facility] Last Admin: 05/05/18 08:22 Dose: 0.4 mg - Labs Labs: 05/04/18 05:20 05/04/18 05:20 PT 10.8 Seconds (9.8-13.1) 05/04/18 04:00 INR 1.0 (0.9-1.2) 05/04/18 04:00 APTT 29.1 Seconds (25.6-37.1) 05/04/18 04:00 - Constitutional Appears: No Acute Distress - Head Exam Head Exam: NORMAL INSPECTION - Eye Exam Eye Exam: Normal appearance Pupil Exam: NORMAL ACCOMODATION - ENT Exam ENT Exam: Mucous Membranes Moist - Neck Exam Neck Exam: Normal Inspection - Respiratory Exam Respiratory Exam: Clear to Ausculation Bilateral, NORMAL BREATHING PATTERN - Cardiovascular Exam Cardiovascular Exam: REGULAR RHYTHM - GI/Abdominal Exam Additional comments: L Colostomy with output, other colostomy site covered with dressing, dry, intact , inguinal hernias - Rectal Exam Additional comments: Viji rectal abscess/mass (f.u wound care lin') - Extremities Exam Extremities Exam: Normal Inspection - Back Exam Back Exam: absent: CVA tenderness (L), CVA tenderness (R) - Neurological Exam Neurological Exam: Alert, Awake, CN II-XII Intact, Normal Gait, Oriented x3 Neuro motor strength exam: Left Upper Extremity: 4, Right Upper Extremity: 4, Left Lower Extremity: 4, Right Lower Extremity: 4 - Psychiatric Exam Psychiatric exam: Normal Affect - Skin Skin Exam: Dry, Intact, Normal Color, Warm Assessment and Plan - Assessment and Plan (Free Text) Assessment: A/P: 77 y/o male with a pmhx of rectal adenocarcinoma, viji-rectal mass, right inguinal hernias, chronic anemia, and BPH admitted for VRE urinary tract infection and perirectal abscess s/p perirectal mass biopsy on 04/23/18. Rectal Adenocarcinoma with perirectal abscess -Abd/pelvic CT on 04/15/18: IMPRESSION: abnormal hyperdense changes seen related to an irregularly thickened rectum suspicious for neoplasm with extension the left viji rectal/perianal/medical left buttock soft tissues. Abscess is not favored though not completely excluded here. No emphysematous changes are related or definitive fluid collection. -S/P perirectal mass biospy, EUA and rigid sigmoidoscopy on 04/23/18 -Rectal biopsy: rectal adenocarcinoma -Surgery lin' appreciated; No surgical interventions, possible radiation vs Chemo -As per administration (04/28/18) XRT is not an option at this time -Pain management; Morphine -C/w wound care management -04/30/18; Medical options (chemo, surgical) at [facility] Vs Hospice options discussed in presence of Dr. Fernandez. 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 -Hem Onc consult; Dr. Thompson appreciated for further management: 05/02/18, "local progression of his disease but no distant metastasis, recommend definitive chemotherapy + radiation; case discussed with radiation oncology Dr. Aragon, outpatient treatment not possible in the past as patient does not have the means to travel for f/u and treatment.patient would benefit from inpatient treatment" -Retic count 1.6, B12 393, Folate 9.6 , Ferritin 118, CEA 2.3 -Administration 05/03/18: Patient is approved for chemo -Chemo Port placement possibly Sunday, NPO after midnight LYLE - Improved , likely post renal azotemia 2/2 urinary retention - BUN/Cr: 16/ on 05/04 B/L hydronephrosis on CT -Afebrile -CT abd/pelvis: Gross bilateral hydronephrosis has increased potentially is a function of cystitis or neoplastic urinary bladder findings. -S/P Cystoscopy and B/L stent insertion on 04/23/18. S/p VRE Urinary Tract Infection -Urine cx 04/09/18: VRE, sensitive to linezolid -Repeat urine c&s: no growth -ID on board -S/p linezolid 600 mg Q12 PO for 7days Fistula/colostomy draining -s/p partial colectomy and colostomy bag -Surgery on board -Wound care on board for colostomy care Hypokalemia -Potassium 3.5 -Oral potassium -f/u CMP tomorrow Elevated BP -no hx HTN -Likely secondary to pain -Pain management with morphine -Monitor vitals BPH -on Flomax DVT prophylaxis -Scds -Lovenox 40 mg SC qhs DNR/DNI <Negar Mckinley - Last Filed: 05/06/18 07:09> Objective - Vital Signs/Intake and Output Vital Signs (last 24 hours): Temp Pulse Resp BP Pulse Ox 97.4 F L 63 19 149/80 99 05/06/18 00:56 05/06/18 00:56 05/06/18 00:56 05/06/18 00:56 05/06/18 00:56 - Medications Medications: Current Medications Enoxaparin Sodium (Lovenox) 40 mg SC DAILY [facility] PRN Reason: Protocol Morphine Sulfate (Morphine) 4 mg IVP Q4 PRN PRN Reason: Pain, severe (8-10) Mupirocin (Bactroban Ointment) 1 applic TOP DAILY [facility] Last Admin: 05/05/18 08:23 Dose: 1 applic Ondansetron HCl (Zofran Odt) 4 mg PO Q8H PRN PRN Reason: Nausea/Vomiting Potassium Chloride (K-Dur 20 Meq Er Tab) 40 meq PO DAILY [facility] Last Admin: 05/05/18 11:24 Dose: 40 meq Tamsulosin HCl (Flomax) 0.4 mg PO DAILY [facility] Last Admin: 05/05/18 08:22 Dose: 0.4 mg - Labs Labs: 05/06/18 05:50 05/06/18 05:50 PT 10.8 Seconds (9.8-13.1) 05/04/18 04:00 INR 1.0 (0.9-1.2) 05/04/18 04:00 APTT 29.1 Seconds (25.6-37.1) 05/04/18 04:00 Attending/Attestation - Attestation I have personally seen and examined this patient.: Yes I have fully participated in the care of the patient.: Yes I have reviewed all pertinent clinical information, including history, physical exam and plan: Yes
[2018-05-05] MEDS: Potassium Chloride 20 mEq ER Tab PO SCH (11:24)
[2018-05-06 06:25] LABS: BASO # 0.1 K/uL (0.0-0.2); BASO % 0.6 % (0.0-2.0); EOS # 0.7 K/uL (0.0-0.7); EOS % 8.4 % (0.0-4.0); HEMOGLOBIN 10.7 g/dL (12.0-18.0); LYMPH # 1.2 K/uL (1.0-4.3); LYMPH % 14.9 % (20.0-40.0); MEAN CELL VOLUME 88.3 fl (80.0-94.0); MEAN CORPUSCULAR HEMOGLOBIN 29.6 pg (27.0-31.0); MEAN CORPUSCULAR HGB CONC 33.5 g/dL (33.0-37.0); MEAN PLATELET VOLUME 7.9 fl (7.2-11.7); MONO # 0.6 K/uL (0.0-0.8); NEUT # 5.3 K/uL (1.8-7.0); NEUT % 68.1 % (50.0-75.0); NRBC % 0.1 % (0.0-0.0); RBC 3.62 Mil/uL (4.40-5.90); RED CELL DISTRIBUTION WIDTH 16.4 % (11.5-14.5); WHITE BLOOD COUNT 7.8 K/uL (4.8-10.8)
[2018-05-06 07:05] LABS: ALB/GLOB RATIO 0.9 (1.0-2.1); ALBUMIN 3.2 g/dL (3.5-5.0); ALT/SGPT 32 U/L (21-72); AST/SGOT 14 U/L (17-59); BLOOD UREA NITROGEN 18 mg/dl (9-20); CALCIUM 8.7 mg/dL (8.4-10.2); GFR AFRICAN-AMERICAN > 60; GFR NON-AFRICAN AMERICAN > 60
--- NOTE | 2018-05-06 09:49 | CP.PCM.PN ---
Subjective - Date & Time of Evaluation Date of Evaluation: 05/06/18 Time of Evaluation: 09:00 - Subjective Subjective: Patient seen and examined this morning, NAD. Denies any acute event overnight, patient is aware of possible Chemo-port placement today. NPO, urinating w/o any difficulties. Objective - Vital Signs/Intake and Output Vital Signs (last 24 hours): Temp Pulse Resp BP Pulse Ox 97.6 F 60 19 144/78 98 05/06/18 08:00 05/06/18 08:00 05/06/18 08:00 05/06/18 08:00 05/06/18 08:00 - Medications Medications: Current Medications Morphine Sulfate (Morphine) 4 mg IVP Q4 PRN PRN Reason: Pain, severe (8-10) Mupirocin (Bactroban Ointment) 1 applic TOP DAILY [facility] Last Admin: 05/05/18 08:23 Dose: 1 applic Ondansetron HCl (Zofran Odt) 4 mg PO Q8H PRN PRN Reason: Nausea/Vomiting Potassium Chloride (K-Dur 20 Meq Er Tab) 40 meq PO DAILY [facility] Last Admin: 05/05/18 11:24 Dose: 40 meq Tamsulosin HCl (Flomax) 0.4 mg PO DAILY [facility] Last Admin: 05/05/18 08:22 Dose: 0.4 mg - Labs Labs: 05/06/18 05:50 05/06/18 05:50 PT 10.8 Seconds (9.8-13.1) 05/04/18 04:00 INR 1.0 (0.9-1.2) 05/04/18 04:00 APTT 29.1 Seconds (25.6-37.1) 05/04/18 04:00 - Constitutional Appears: No Acute Distress - Head Exam Head Exam: NORMAL INSPECTION - Eye Exam Eye Exam: Normal appearance - ENT Exam ENT Exam: Mucous Membranes Moist - Neck Exam Neck Exam: Normal Inspection - Respiratory Exam Respiratory Exam: Clear to Ausculation Bilateral, NORMAL BREATHING PATTERN - Cardiovascular Exam Cardiovascular Exam: REGULAR RHYTHM - GI/Abdominal Exam GI & Abdominal Exam: Soft, Normal Bowel Sounds. absent: Rigid, Tenderness, Organomegaly, Rebound Additional comments: Left colostomy bag, no output seen, no sign of infection around site Right previous colostomy site, no erythema, discharge or sign of infections; continue dressing - Rectal Exam Additional comments: rectal mass/abscess seen, continue wound care - Extremities Exam Extremities Exam: Normal Capillary Refill, Normal Inspection. absent: Pedal Edema, Tenderness - Back Exam Back Exam: NORMAL INSPECTION. absent: CVA tenderness (L), CVA tenderness (R) - Neurological Exam Neurological Exam: Alert, Awake, CN II-XII Intact, Oriented x3 - Psychiatric Exam Psychiatric exam: Normal Affect - Skin Skin Exam: Dry, Intact, Normal Color, Warm Assessment and Plan - Assessment and Plan (Free Text) Assessment: A/P: 77 y/o male with a pmhx of rectal adenocarcinoma, emile-rectal mass, right inguinal hernias, chronic anemia, and BPH admitted for VRE urinary tract infection and perirectal abscess s/p perirectal mass biopsy on 04/23/18. Rectal Adenocarcinoma with perirectal abscess -Abd/pelvic CT on 04/15/18: IMPRESSION: abnormal hyperdense changes seen related to an irregularly thickened rectum suspicious for neoplasm with extension the left emile rectal/perianal/medical left buttock soft tissues. Abscess is not favored though not completely excluded here. No emphysematous changes are related or definitive fluid collection. -S/P perirectal mass biospy, EUA and rigid sigmoidoscopy on 04/23/18 -Rectal biopsy: rectal adenocarcinoma -Surgery lin' appreciated; No surgical interventions, possible radiation vs Chemo -As per administration (04/28/18) XRT is not an option at this time -Pain management; Morphine -C/w wound care management -04/30/18; Medical options (chemo, surgical) at [facility] Vs Hospice options discussed in presence of Dr. Fernandez. 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 -Hem Onc consult; Dr. Thompson appreciated for further management: 05/02/18, "local progression of his disease but no distant metastasis, recommend definitive chemotherapy + radiation; case discussed with radiation oncology Dr. Aragon, outpatient treatment not possible in the past as patient does not have the means to travel for f/u and treatment.patient would benefit from inpatient treatment" -Retic count 1.6, B12 393, Folate 9.6 , Ferritin 118, CEA 2.3 -Administration 05/03/18: Patient is approved for chemo -NPO today -Chemo-Port placement today as per surgery LYLE - Improved , likely post renal azotemia 2/2 urinary retention - BUN/Cr: 18/0.9 on 05/06 B/L hydronephrosis on CT -Afebrile -CT abd/pelvis: Gross bilateral hydronephrosis has increased potentially is a function of cystitis or neoplastic urinary bladder findings. -S/P Cystoscopy and B/L stent insertion on 04/23/18. S/p VRE Urinary Tract Infection -Urine cx 04/09/18: VRE, sensitive to linezolid -Repeat urine c&s: no growth -ID on board -S/p linezolid 600 mg Q12 PO for 7days Fistula/colostomy draining -s/p partial colectomy and colostomy bag -Surgery on board -Wound care on board for colostomy care Hypokalemia -Improved -f/u CMP tomorrow Elevated BP -no hx HTN -Likely secondary to pain -Pain management with morphine -Monitor vitals BPH -on Flomax DVT prophylaxis -Scds -Lovenox 40 mg SC qhs (Held for Chemo port) DNR/DNI
[2018-05-06] MEDS: Potassium Chloride 20 mEq ER Tab PO SCH ×2 (11:02→16:17)
[2018-05-06] MEDS ORDERED: Protamine 50mg/5mL Inj IV ONE (12:53)
[2018-05-06] MEDS ORDERED: Midazolam 2 MG/2 ML VIAL ONE (13:00)
[2018-05-06] MEDS ORDERED: Lactated Ringer's 500 ML IV ONE (13:00)
[2018-05-06] MEDS ORDERED: Propofol 10 mg/ml Inj (20 ML) ONE (13:00)
[2018-05-06] MEDS ORDERED: Lactated Ringer's 1,000 ML IV ONE (13:00)
[2018-05-06] MEDS: Lidocaine 2% Inj (20ml) ONE ×2 (13:35→13:41)
--- NOTE | 2018-05-06 14:31 | PCM.SURG1 ---
Surgeon's Initial Post Op Note - Surgeon's Notes Surgeon: Dr. Tyler Armature Winder Repair Helper: Kellen PGY1, Stephen HOLT PGY1 Type of Anesthesia: IV Sedation, Local Anesthesia Administered By: Dr. Metzger Pre-Operative Diagnosis: Rectal adenocarcinoma Operative Findings: See operative report Post-Operative Diagnosis: Same Operation Performed: Right subclavian port-a-cath insertion Specimen/Specimens Removed: none Estimated Blood Loss: EBL {In ML}: 5 Blood Products Given: N/A Drains Used: No Drains Post-Op Condition: Good Date of Surgery/Procedure: 05/06/18 Time of Surgery/Procedure: 14:34
[2018-05-06] MEDS ORDERED: Lactated Ringer's 500 ML IV SCH (14:45)
--- NOTE | 2018-05-06 15:10 | RAD ---
HISTORY: s/p port-a-cath placement COMPARISON: Chest radiograph dated 01/25/2018. FINDINGS: LUNGS: No active pulmonary disease. PLEURA: No significant pleural effusion identified, no pneumothorax apparent. CARDIOVASCULAR: Atherosclerotic aortic calcifications. Cardiomediastinal silhouette within normal limits. OSSEOUS STRUCTURES: Unchanged. VISUALIZED UPPER ABDOMEN: Normal. OTHER FINDINGS: New right subclavian access chest port with catheter tip in the proximal SVC. IMPRESSION: New right subclavian access chest port with catheter tip in the proximal SVC. No appreciable pneumothorax.
[2018-05-07 06:23] LABS: HEMOGLOBIN 10.5 g/dL (12.0-18.0); MEAN CELL VOLUME 87.7 fl (80.0-94.0); MEAN CORPUSCULAR HEMOGLOBIN 29.6 pg (27.0-31.0); MEAN CORPUSCULAR HGB CONC 33.8 g/dL (33.0-37.0); RBC 3.56 Mil/uL (4.40-5.90); RED CELL DISTRIBUTION WIDTH 16.4 % (11.5-14.5); WHITE BLOOD COUNT 7.6 K/uL (4.8-10.8)
[2018-05-07 06:41] LABS: ALB/GLOB RATIO 0.9 (1.0-2.1); ALT/SGPT 24 U/L (21-72); AST/SGOT 19 U/L (17-59); BLOOD UREA NITROGEN 20 mg/dl (9-20); CALCIUM 8.6 mg/dL (8.4-10.2); GFR AFRICAN-AMERICAN > 60; GFR NON-AFRICAN AMERICAN > 60
--- NOTE | 2018-05-07 08:30 | CP.PCM.PN ---
Subjective - Date & Time of Evaluation Date of Evaluation: 05/07/18 Time of Evaluation: 07:25 - Subjective Subjective: Patient seen and examined. No acute events over night[facility] Objective - Vital Signs/Intake and Output Vital Signs (last 24 hours): Temp Pulse Resp BP Pulse Ox 97.7 F 57 L 18 144/75 98 05/07/18 08:00 05/07/18 08:00 05/07/18 08:00 05/07/18 08:00 05/07/18 08:00 - Medications Medications: Current Medications Enoxaparin Sodium (Lovenox) 40 mg SC DAILY [facility] PRN Reason: Protocol Lactated Ringer's (Lactated Ringer's 500ml) 500 mls @ 100 mls/hr IV .Q5H [facility] Morphine Sulfate (Morphine) 4 mg IVP Q4 PRN PRN Reason: Pain, severe (8-10) Mupirocin (Bactroban Ointment) 1 applic TOP DAILY [facility] Last Admin: 05/06/18 10:11 Dose: 1 applic Ondansetron HCl (Zofran Odt) 4 mg PO Q8H PRN PRN Reason: Nausea/Vomiting Potassium Chloride (K-Dur 20 Meq Er Tab) 40 meq PO DAILY [facility] Last Admin: 05/06/18 16:17 Dose: Not Given Tamsulosin HCl (Flomax) 0.4 mg PO DAILY [facility] Last Admin: 05/06/18 10:11 Dose: Not Given - Labs Labs: 05/07/18 05:55 05/07/18 05:55 PT 10.8 Seconds (9.8-13.1) 05/04/18 04:00 INR 1.0 (0.9-1.2) 05/04/18 04:00 APTT 29.1 Seconds (25.6-37.1) 05/04/18 04:00 - Constitutional Appears: No Acute Distress - Head Exam Head Exam: NORMOCEPHALIC - Eye Exam Eye Exam: Normal appearance - ENT Exam ENT Exam: Mucous Membranes Moist - Respiratory Exam Respiratory Exam: NORMAL BREATHING PATTERN - Cardiovascular Exam Cardiovascular Exam: +S1, +S2 - GI/Abdominal Exam GI & Abdominal Exam: Soft - Neurological Exam Neurological Exam: Alert, Awake, Oriented x3 - Psychiatric Exam Psychiatric exam: Normal Mood - Skin Skin Exam: Dry, Intact, Warm Assessment and Plan - Assessment and Plan (Free Text) Assessment: 77M with Rectal CA s/p portacath placement POD1 Plan: Surgical incision site is c/d/i Portacath ready to use Further medical management per medicine team D/w Dr. Jayson Olivier PGY2
[2018-05-07] MEDS ORDERED: Enoxaparin 40 mg Syringe SC SCH (09:00)
[2018-05-07] MEDS: Potassium Chloride 20 mEq ER Tab PO SCH (09:15)
[2018-05-07] MEDS: Enoxaparin 40 mg Syringe SC SCH (09:15)
--- NOTE | 2018-05-07 10:15 | CP.PCM.PN ---
Subjective - Date & Time of Evaluation Date of Evaluation: 05/07/18 Time of Evaluation: 09:10 - Subjective Subjective: Patient seen and examined this morning, NAD. Patient got his Chemo port yesterday and well tolerated. Patient denies any pain, f/c/n/v/, chest pain, SOB , abdominal pain or urinary symptoms. tolerating PO intake, urinating w/o any difficulties. Objective - Vital Signs/Intake and Output Vital Signs (last 24 hours): Temp Pulse Resp BP Pulse Ox 97.7 F 57 L 18 144/75 98 05/07/18 08:00 05/07/18 08:00 05/07/18 08:00 05/07/18 08:00 05/07/18 08:00 - Medications Medications: Current Medications Enoxaparin Sodium (Lovenox) 40 mg SC DAILY [facility] PRN Reason: Protocol Last Admin: 05/07/18 09:15 Dose: 40 mg Lactated Ringer's (Lactated Ringer's 500ml) 500 mls @ 100 mls/hr IV .Q5H [facility] Morphine Sulfate (Morphine) 4 mg IVP Q4 PRN PRN Reason: Pain, severe (8-10) Mupirocin (Bactroban Ointment) 1 applic TOP DAILY [facility] Last Admin: 05/07/18 09:14 Dose: 1 applic Ondansetron HCl (Zofran Odt) 4 mg PO Q8H PRN PRN Reason: Nausea/Vomiting Potassium Chloride (K-Dur 20 Meq Er Tab) 40 meq PO DAILY [facility] Last Admin: 05/07/18 09:15 Dose: 40 meq Tamsulosin HCl (Flomax) 0.4 mg PO DAILY [facility] Last Admin: 05/07/18 09:14 Dose: 0.4 mg - Labs Labs: 05/07/18 05:55 05/07/18 05:55 PT 10.8 Seconds (9.8-13.1) 05/04/18 04:00 INR 1.0 (0.9-1.2) 05/04/18 04:00 APTT 29.1 Seconds (25.6-37.1) 05/04/18 04:00 - Constitutional Appears: No Acute Distress - Head Exam Head Exam: ATRAUMATIC, NORMAL INSPECTION - Eye Exam Eye Exam: EOMI, Normal appearance - ENT Exam ENT Exam: Mucous Membranes Moist - Neck Exam Additional comments: Right upper chest chemo-port - Respiratory Exam Respiratory Exam: Clear to Ausculation Bilateral, NORMAL BREATHING PATTERN - Cardiovascular Exam Cardiovascular Exam: REGULAR RHYTHM - GI/Abdominal Exam GI & Abdominal Exam: Soft, Normal Bowel Sounds Additional comments: left colostomy bag, clean, no output seen this morning Right prior colostomy site, no discharge, erythema - Extremities Exam Extremities Exam: Normal Capillary Refill - Back Exam Back Exam: NORMAL INSPECTION. absent: CVA tenderness (L), CVA tenderness (R) - Neurological Exam Neurological Exam: Alert, Awake, CN II-XII Intact - Psychiatric Exam Psychiatric exam: Normal Affect - Skin Skin Exam: Dry, Intact, Normal Color, Warm Assessment and Plan - Assessment and Plan (Free Text) Assessment: A/P: 77 y/o male with a pmhx of rectal adenocarcinoma, emile-rectal mass, right inguinal hernias, chronic anemia, and BPH admitted for VRE urinary tract infection and perirectal abscess s/p perirectal mass biopsy on 04/23/18. Rectal Adenocarcinoma with perirectal abscess -Abd/pelvic CT on 04/15/18: IMPRESSION: abnormal hyperdense changes seen related to an irregularly thickened rectum suspicious for neoplasm with extension the left emile rectal/perianal/medical left buttock soft tissues. Abscess is not favored though not completely excluded here. No emphysematous changes are related or definitive fluid collection. -S/P perirectal mass biospy, EUA and rigid sigmoidoscopy on 04/23/18 -Rectal biopsy: rectal adenocarcinoma -Surgery lin' appreciated; No surgical interventions at this time, possible radiation vs Chemo -As per administration (04/28/18) XRT is not an option at this time -04/30/18; Medical options (chemo, surgical) at [facility] Vs Hospice options discussed in presence of Dr. Fernandez. 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 -Hem Onc consult; Dr. Thompson appreciated for further management: 05/02/18, "local progression of his disease but no distant metastasis, recommend definitive chemotherapy + radiation; case discussed with radiation oncology Dr. Aragon, outpatient treatment not possible in the past as patient does not have the means to travel for f/u and treatment.patient would benefit from inpatient treatment" -Administration 05/03/18: Patient is approved for chemo -Retic count 1.6, B12 393, Folate 9.6 , Ferritin 118, CEA 2.3 -Pain management; Morphine -C/w wound care management -Chemo-Port placed yesterday, POD1, ready to use for chemo -Will follow up with Dr. Thompson LYLE - Improved , likely post renal azotemia 2/2 urinary retention - Monitor BUN/CR B/L hydronephrosis on CT -Afebrile -CT abd/pelvis: Gross bilateral hydronephrosis has increased potentially is a function of cystitis or neoplastic urinary bladder findings. -S/P Cystoscopy and B/L stent insertion on 04/23/18. S/p VRE Urinary Tract Infection -Urine cx 04/09/18: VRE, sensitive to linezolid -Repeat urine c&s: no growth -ID on board -S/p linezolid 600 mg Q12 PO for 7days Fistula/colostomy draining -s/p partial colectomy and colostomy bag -Surgery on board -Wound care on board for colostomy care Hypokalemia -Improved -f/u CMP tomorrow Elevated BP -no hx HTN -Likely secondary to pain -Pain management with morphine -Monitor vitals BPH -on Flomax DVT prophylaxis -Scds -Lovenox 40 mg SC qhs DNR/DNI
--- NOTE | 2018-05-07 17:42 | OP ---
PROCEDURE DATE: 05/06/2018 PREOPERATIVE DIAGNOSIS: Carcinoma of the rectum. POSTOPERATIVE DIAGNOSIS: Carcinoma of the rectum. OPERATION PERFORMED: Port-A-Cath. SURGEON: Seamus Tyler MD HEARING SCREENER: . ESTIMATED BLOOD LOSS: Minimal. COMPLICATIONS: None. DESCRIPTION OF PROCEDURE: In the operating room, the patient was identified by name, name of procedure, laterality, and my carrie. Chlorhexidine was used and waited for three minutes for drying. The area was then prepped and draped with IV sedation. The ultrasound was used to identify the internal jugular; however, because of its anatomy, I thought a subclavian line would be more expeditious. The midportion of the clavicle was infiltrated with 1% Xylocaine after a successful time-out. The trocar needle was then introduced going below the bone aiming towards the tip of the finger in the sternal notch. The needle had been rotated 180 degrees and entered the vein nicely with a flash of blood. The guidewire was inserted into Trendelenburg position. Fluoroscopy was used to identify the tip, which was in the right ventricle. An 11-blade was used to enlarge the incision and it was bluntly dissected. Xylocaine was used to raise the pocket in the anterior chest wall. Because of his cachexia, it was an easy dissection. The port fit nicely in the pocket. The catheter was filled with heparin, attached to the tunneler. It was brought through the wound in the chest wall and brought out superiorly and laterally to the punctum by the subclavian. The tunneler was then twisted to bring it through the skin to create a pocket. The catheter was then pulled through very nicely without issue. The guidewire and dilator were removed and the catheter introduced as much as possible. It was done under fluoroscopy, and it was pulled back, so that the tip was at about the level of the salvatore. It was pulled back and cut and introduced with a crimping plastic onto the port that had previously been sized nicely. It was placed in the subcutaneous area. to mention the fact that if the guidewire was placed under fluoroscopic control, the dilator was placed without issue. Obviously, the peel-away was left intact until the catheter was placed. Catheter being placed in a good position, the peel-away was removed without issue. Hemostasis was achieved with cautery. The port was sutured down with two stitches of Vicryl. It was pinned with a Bower needle and it flushed and aspirated very nicely. Subcutaneous tissue was closed with Vicryl followed by subcuticular Biosyn. It was sealed with Dermabond. The patient was taken after chest x-ray that was normal into recovery room in good condition. Seamus Tyler MD
--- NOTE | 2018-05-07 23:15 | CP.PCM.PN ---
Subjective - Date & Time of Evaluation Date of Evaluation: 05/07/18 Time of Evaluation: 17:00 - Subjective Subjective: No complaints. Objective - Vital Signs/Intake and Output Vital Signs (last 24 hours): Temp Pulse Resp BP Pulse Ox 98.4 F 114 H 20 123/78 98 05/07/18 16:04 05/07/18 16:04 05/07/18 16:04 05/07/18 16:04 05/07/18 16:04 - Medications Medications: Current Medications Enoxaparin Sodium (Lovenox) 40 mg SC DAILY [facility] PRN Reason: Protocol Last Admin: 05/07/18 09:15 Dose: 40 mg Lactated Ringer's (Lactated Ringer's 500ml) 500 mls @ 100 mls/hr IV .Q5H [facility] Morphine Sulfate (Morphine) 4 mg IVP Q4 PRN PRN Reason: Pain, severe (8-10) Mupirocin (Bactroban Ointment) 1 applic TOP DAILY [facility] Last Admin: 05/07/18 09:14 Dose: 1 applic Ondansetron HCl (Zofran Odt) 4 mg PO Q8H PRN PRN Reason: Nausea/Vomiting Potassium Chloride (K-Dur 20 Meq Er Tab) 40 meq PO DAILY [facility] Last Admin: 05/07/18 09:15 Dose: 40 meq Tamsulosin HCl (Flomax) 0.4 mg PO DAILY [facility] Last Admin: 05/07/18 09:14 Dose: 0.4 mg - Labs Labs: 05/07/18 05:55 05/07/18 05:55 PT 10.8 Seconds (9.8-13.1) 05/04/18 04:00 INR 1.0 (0.9-1.2) 05/04/18 04:00 APTT 29.1 Seconds (25.6-37.1) 05/04/18 04:00 - Head Exam Head Exam: ATRAUMATIC - Eye Exam Eye Exam: Normal appearance - ENT Exam ENT Exam: Mucous Membranes Dry - Respiratory Exam Respiratory Exam: NORMAL BREATHING PATTERN - Cardiovascular Exam Cardiovascular Exam: +S1, +S2 - GI/Abdominal Exam GI & Abdominal Exam: Normal Bowel Sounds Assessment and Plan (1) Rectal cancer Assessment & Plan: stage IV; local extension involving the perineum s/p portacath placement for inpatient chemotherapy pending hospital administration approval plan for modified FOLFOX6 +Avastin q2 weeks Status: Acute (2) Anemia Assessment & Plan: chronic disease from malignancy Status: Acute
[2018-05-08 06:44] LABS: BASO # 0.1 K/uL (0.0-0.2); BASO % 0.9 % (0.0-2.0); EOS # 0.6 K/uL (0.0-0.7); EOS % 9.7 % (0.0-4.0); HEMOGLOBIN 10.1 g/dL (12.0-18.0); LYMPH # 1.1 K/uL (1.0-4.3); LYMPH % 16.2 % (20.0-40.0); MEAN CELL VOLUME 88.4 fl (80.0-94.0); MEAN CORPUSCULAR HEMOGLOBIN 28.9 pg (27.0-31.0); MEAN CORPUSCULAR HGB CONC 32.7 g/dL (33.0-37.0); MEAN PLATELET VOLUME 7.9 fl (7.2-11.7); MONO # 0.5 K/uL (0.0-0.8); MONO % 7.9 % (0.0-10.0); NEUT # 4.4 K/uL (1.8-7.0); NEUT % 65.3 % (50.0-75.0); NRBC % 0.1 % (0.0-0.0); RBC 3.5 Mil/uL (4.40-5.90); RED CELL DISTRIBUTION WIDTH 16.2 % (11.5-14.5); WHITE BLOOD COUNT 6.7 K/uL (4.8-10.8)
[2018-05-08 07:45] LABS: ALB/GLOB RATIO 0.9 (1.0-2.1); ALBUMIN 2.9 g/dL (3.5-5.0); ALT/SGPT 18 U/L (21-72); AST/SGOT 13 U/L (17-59); BLOOD UREA NITROGEN 22 mg/dl (9-20); CALCIUM 8.6 mg/dL (8.4-10.2); GFR AFRICAN-AMERICAN > 60; GFR NON-AFRICAN AMERICAN > 60
[2018-05-08] MEDS: Enoxaparin 40 mg Syringe SC SCH (08:45)
[2018-05-08] MEDS: Potassium Chloride 20 mEq ER Tab PO SCH (08:45)
--- NOTE | 2018-05-08 09:16 | CP.PCM.PN ---
Subjective - Date & Time of Evaluation Date of Evaluation: 05/08/18 Time of Evaluation: 08:45 - Subjective Subjective: Patient seen and examined this morning. NAD, no acute event overnight. Patient is tolerating PO intake, denies any dizziness, SOB, chest pain, SOB, abdominal pain or weakness. Colostomy bag was seen with minimum output. Objective - Vital Signs/Intake and Output Vital Signs (last 24 hours): Temp Pulse Resp BP Pulse Ox 97.6 F 62 19 134/84 99 05/08/18 07:55 05/08/18 07:55 05/08/18 07:55 05/08/18 07:55 05/08/18 07:55 - Medications Medications: Current Medications Enoxaparin Sodium (Lovenox) 40 mg SC DAILY T[facility]LA PRN Reason: Protocol Last Admin: 05/08/18 08:45 Dose: 40 mg Lactated Ringer's (Lactated Ringer's 500ml) 500 mls @ 100 mls/hr IV .Q5H [facility] Morphine Sulfate (Morphine) 4 mg IVP Q4 PRN PRN Reason: Pain, severe (8-10) Mupirocin (Bactroban Ointment) 1 applic TOP DAILY [facility] Last Admin: 05/07/18 09:14 Dose: 1 applic Ondansetron HCl (Zofran Odt) 4 mg PO Q8H PRN PRN Reason: Nausea/Vomiting Potassium Chloride (K-Dur 20 Meq Er Tab) 40 meq PO DAILY [facility] Last Admin: 05/08/18 08:45 Dose: 40 meq Tamsulosin HCl (Flomax) 0.4 mg PO DAILY [facility] Last Admin: 05/08/18 08:46 Dose: 0.4 mg - Labs Labs: 05/08/18 05:50 05/08/18 05:50 PT 10.8 Seconds (9.8-13.1) 05/04/18 04:00 INR 1.0 (0.9-1.2) 05/04/18 04:00 APTT 29.1 Seconds (25.6-37.1) 05/04/18 04:00 - Constitutional Appears: No Acute Distress - Head Exam Head Exam: NORMAL INSPECTION - Eye Exam Eye Exam: Normal appearance Pupil Exam: NORMAL ACCOMODATION - ENT Exam ENT Exam: Mucous Membranes Moist - Neck Exam Neck Exam: Normal Inspection Additional comments: Right upper chest chemo-port - Respiratory Exam Respiratory Exam: Clear to Ausculation Bilateral, NORMAL BREATHING PATTERN - Cardiovascular Exam Cardiovascular Exam: REGULAR RHYTHM - GI/Abdominal Exam GI & Abdominal Exam: Soft, Normal Bowel Sounds. absent: Tenderness Additional comments: left colostomy bag, clean, minimum output seen this morning, no blood Right prior colostomy site, clear discharge was seen , no erythema or tenderness - Rectal Exam Additional comments: rectal mass/abscess: non-tender, c/w wound care management - Back Exam Back Exam: NORMAL INSPECTION. absent: CVA tenderness (L), CVA tenderness (R) - Neurological Exam Neurological Exam: Alert, Awake, CN II-XII Intact, Normal Gait, Oriented x3 - Psychiatric Exam Psychiatric exam: Normal Affect - Skin Skin Exam: Dry, Intact, Normal Color, Warm Assessment and Plan - Assessment and Plan (Free Text) Assessment: A/P: 77 y/o male with a pmhx of rectal adenocarcinoma, emile-rectal mass, right inguinal hernias, chronic anemia, and BPH admitted for VRE urinary tract infection and perirectal abscess s/p perirectal mass biopsy on 04/23/18. Rectal Adenocarcinoma with perirectal abscess -Abd/pelvic CT on 04/15/18: IMPRESSION: abnormal hyperdense changes seen related to an irregularly thickened rectum suspicious for neoplasm with extension the left emile rectal/perianal/medical left buttock soft tissues. Abscess is not favored though not completely excluded here. No emphysematous changes are related or definitive fluid collection. -S/P perirectal mass biospy, EUA and rigid sigmoidoscopy on 04/23/18 -Rectal biopsy: rectal adenocarcinoma -Surgery lin' appreciated; No surgical interventions at this time, possible radiation vs Chemo -As per administration (04/28/18) XRT is not an option at this time -04/30/18; Medical options (chemo, surgical) at [facility] Vs Hospice options discussed in presence of Dr. Fernandez. Risks and Benefits explained, all the questions were answered: Telecom paraprofessional interpreter (Angelia, [phone]), Patient agreed with Hospice option -CT abdo/pelvis/chest 05/01: No liver/adrenal mets, no pulm nodules, no osseous pathology, b/l hydronephrosis, moderate bladder distention, enlarged prostate. -Hem Onc consult; Dr. Thompson appreciated for further management: 05/02/18, "local progression of his disease but no distant metastasis, recommend definitive chemotherapy + radiation; case discussed with radiation oncology Dr. Aragon, outpatient treatment not possible in the past as patient does not have the means to travel for f/u and treatment.patient would benefit from inpatient treatment" -Administration 05/03/18: Patient is approved for chemo -Retic count 1.6, B12 393, Folate 9.6 , Ferritin 118, CEA 2.3 -Pain management; Morphine -C/w wound care management -Chemo-Port placed yesterday, POD2, ready to use for chemo -Dr. Thompson: plan for modified FOLFOX6 +Avastin q2 weeks, once cleared to get chemo by administration LYLE - Improved , likely post renal azotemia 2/2 urinary retention - Monitor BUN/CR B/L hydronephrosis on CT -Afebrile -CT abd/pelvis: Gross bilateral hydronephrosis has increased potentially is a function of cystitis or neoplastic urinary bladder findings. -S/P Cystoscopy and B/L stent insertion on 04/23/18. S/p VRE Urinary Tract Infection -Urine cx 04/09/18: VRE, sensitive to linezolid -Repeat urine c&s: no growth -ID on board -S/p linezolid 600 mg Q12 PO for 7days Fistula/colostomy draining -s/p partial colectomy and colostomy bag -Surgery on board -Wound care on board for colostomy care Hypokalemia -Improved -f/u CMP tomorrow Elevated BP -no hx HTN -Likely secondary to pain -Pain management with morphine -Monitor vitals BPH -on Flomax DVT prophylaxis -Scds -Lovenox 40 mg SC qhs DNR/DNI
--- NOTE | 2018-05-08 11:58 | CP.PCM.PN ---
Subjective - Date & Time of Evaluation Date of Evaluation: 05/08/18 Time of Evaluation: 11:00 - Subjective Subjective: No complaints. Objective - Vital Signs/Intake and Output Vital Signs (last 24 hours): Temp Pulse Resp BP Pulse Ox 97.6 F 62 19 134/84 99 05/08/18 07:55 05/08/18 07:55 05/08/18 07:55 05/08/18 07:55 05/08/18 07:55 - Medications Medications: Current Medications Enoxaparin Sodium (Lovenox) 40 mg SC DAILY [facility] PRN Reason: Protocol Last Admin: 05/08/18 08:45 Dose: 40 mg Lactated Ringer's (Lactated Ringer's 500ml) 500 mls @ 100 mls/hr IV .Q5H [facility] Morphine Sulfate (Morphine) 4 mg IVP Q4 PRN PRN Reason: Pain, severe (8-10) Mupirocin (Bactroban Ointment) 1 applic TOP DAILY [facility] Last Admin: 05/07/18 09:14 Dose: 1 applic Ondansetron HCl (Zofran Odt) 4 mg PO Q8H PRN PRN Reason: Nausea/Vomiting Potassium Chloride (K-Dur 20 Meq Er Tab) 40 meq PO DAILY [facility] Last Admin: 05/08/18 08:45 Dose: 40 meq Tamsulosin HCl (Flomax) 0.4 mg PO DAILY [facility] Last Admin: 05/08/18 08:46 Dose: 0.4 mg - Labs Labs: 05/08/18 05:50 05/08/18 05:50 PT 10.8 Seconds (9.8-13.1) 05/04/18 04:00 INR 1.0 (0.9-1.2) 05/04/18 04:00 APTT 29.1 Seconds (25.6-37.1) 05/04/18 04:00 - Head Exam Head Exam: ATRAUMATIC - Eye Exam Eye Exam: Normal appearance - ENT Exam ENT Exam: Mucous Membranes Dry - Respiratory Exam Respiratory Exam: NORMAL BREATHING PATTERN - Cardiovascular Exam Cardiovascular Exam: +S1, +S2 - GI/Abdominal Exam GI & Abdominal Exam: Normal Bowel Sounds Assessment and Plan (1) Rectal cancer Assessment & Plan: stage IV pt cleared for D/C from heme/onc standpoint modified FOLFOX6 + Avastin Sunday Status: Acute (2) Anemia Status: Acute
--- NOTE | 2018-05-08 15:06 | RAD ---
PROCEDURE: Intraoperative fluoroscopy HISTORY: INSERTION OF LIFEPORT COMPARISON: None available TECHNIQUE: Intraoperative fluoroscopy was provided for placement of LifePort central venous access. Total time of fluoroscopy was FINDINGS: 37.0 seconds. A single fluoroscopic spot film is submitted. IMPRESSION: Fluoroscopy provided
[2018-05-09 06:12] LABS: BASO # 0.1 K/uL (0.0-0.2); EOS # 0.6 K/uL (0.0-0.7); EOS % 8.7 % (0.0-4.0); HEMOGLOBIN 10.3 g/dL (12.0-18.0); LYMPH # 1.2 K/uL (1.0-4.3); MEAN CELL VOLUME 88.6 fl (80.0-94.0); MEAN CORPUSCULAR HEMOGLOBIN 29.6 pg (27.0-31.0); MEAN CORPUSCULAR HGB CONC 33.4 g/dL (33.0-37.0); MEAN PLATELET VOLUME 7.9 fl (7.2-11.7); MONO # 0.5 K/uL (0.0-0.8); MONO % 7.9 % (0.0-10.0); NEUT # 4.3 K/uL (1.8-7.0); NEUT % 64.4 % (50.0-75.0); NRBC % 0.1 % (0.0-0.0); RBC 3.5 Mil/uL (4.40-5.90); RED CELL DISTRIBUTION WIDTH 16.5 % (11.5-14.5); WHITE BLOOD COUNT 6.6 K/uL (4.8-10.8)
[2018-05-09 06:58] LABS: ALB/GLOB RATIO 0.9 (1.0-2.1); ALT/SGPT 13 U/L (21-72); AST/SGOT 13 U/L (17-59); BLOOD UREA NITROGEN 23 mg/dl (9-20); CALCIUM 8.5 mg/dL (8.4-10.2); GFR AFRICAN-AMERICAN > 60; GFR NON-AFRICAN AMERICAN > 60
--- NOTE | 2018-05-09 09:22 | CP.PCM.DIS ---
Provider - Provider Date of Admission: 04/15/18 10:20 Attending physician: Christy Fernandez MD Primary care physician: [facility] Consults: Surgery, Dr. Tyler ID, Dr. Mosher Hem-Onc, Dr. Thompson Urology, Dr. 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 (6) Inguinal hernia Status: Chronic (7) Urinary tract infection Status: Acute Hospital Course - Lab Results Lab Results: Micro Results 04/26/18 09:05 Urine,Catheterized Urine Culture - Final No Growth (<1,000 CFU/ML) 04/15/18 10:30 Blood Blood Culture - Final NO GROWTH AFTER 5 DAYS 04/15/18 10:30 Blood Gram Stain - Final TEST NOT PERFORMED 04/15/18 10:30 Blood Blood Culture - Final NO GROWTH AFTER 5 DAYS 04/15/18 10:30 Blood Gram Stain - Final TEST NOT PERFORMED 04/17/18 14:00 Urine,Clean Catch Urine Culture - Final No Growth (<1,000 CFU/ML) 04/15/18 09:25 Urine Urine Culture - Final 10-50,000 CFU/ML. MULTIPLE SPECIES. PROBABLE CONTAMINATION. Most Recent Lab Values WBC 6.6 K/uL (4.8-10.8) 05/09/18 05:40 RBC 3.50 Mil/uL (4.40-5.90) L 05/09/18 05:40 Hgb 10.3 g/dL (12.0-18.0) L 05/09/18 05:40 Hct 31.0 % (35.0-51.0) L 05/09/18 05:40 MCV 88.6 fl (80.0-94.0) 05/09/18 05:40 MCH 29.6 pg (27.0-31.0) 05/09/18 05:40 MCHC 33.4 g/dL (33.0-37.0) 05/09/18 05:40 RDW 16.5 % (11.5-14.5) H 05/09/18 05:40 Plt Count 329 K/uL (130-400) 05/09/18 05:40 MPV 7.9 fl (7.2-11.7) 05/09/18 05:40 Neut % (Auto) 64.4 % (50.0-75.0) 05/09/18 05:40 Lymph % (Auto) 18.0 % (20.0-40.0) L 05/09/18 05:40 [place] % (Auto) 7.9 % (0.0-10.0) 05/09/18 05:40 Eos % (Auto) 8.7 % (0.0-4.0) H 05/09/18 05:40 Baso % (Auto) 1.0 % (0.0-2.0) 05/09/18 05:40 Neut # (Auto) 4.3 K/uL (1.8-7.0) 05/09/18 05:40 Lymph # (Auto) 1.2 K/uL (1.0-4.3) 05/09/18 05:40 [place] # (Auto) 0.5 K/uL (0.0-0.8) 05/09/18 05:40 Eos # (Auto) 0.6 K/uL (0.0-0.7) 05/09/18 05:40 Baso # (Auto) 0.1 K/uL (0.0-0.2) 05/09/18 05:40 Retic Count 1.6 % (0.5-1.5) H 05/03/18 06:05 PT 10.8 Seconds (9.8-13.1) 05/04/18 04:00 INR 1.0 (0.9-1.2) 05/04/18 04:00 APTT 29.1 Seconds (25.6-37.1) 05/04/18 04:00 Sodium 139 mmol/l (132-148) 05/09/18 05:40 Potassium 4.2 MMOL/L (3.6-5.0) 05/09/18 05:40 Chloride 104 mmol/L (98-107) 05/09/18 05:40 Carbon Dioxide 25 mmol/L (22-30) 05/09/18 05:40 Anion Gap 14 (10-20) 05/09/18 05:40 BUN 23 mg/dl (9-20) H 05/09/18 05:40 Creatinine 1.0 mg/dl (0.8-1.5) 05/09/18 05:40 Est GFR ( Amer) > 60 05/09/18 05:40 Est GFR (Non-Af Amer) > 60 05/09/18 05:40 POC Glucose (mg/dL) 109 mg/dL (65-110) 04/26/18 21:56 Random Glucose 84 mg/dL (75-110) 05/09/18 05:40 Calcium 8.5 mg/dL (8.4-10.2) 05/09/18 05:40 Ferritin 118.0 ng/Ml (17.9-464) 05/03/18 06:05 Total Bilirubin 0.5 mg/dl (0.2-1.3) 05/09/18 05:40 AST 13 U/L (17-59) L 05/09/18 05:40 ALT 13 U/L (21-72) L D 05/09/18 05:40 Alkaline Phosphatase 69 U/L (38-126) 05/09/18 05:40 Total Protein 6.4 G/DL (6.3-8.2) 05/09/18 05:40 Albumin 3.0 g/dL (3.5-5.0) L 05/09/18 05:40 Globulin 3.4 gm/dL (2.2-3.9) 05/09/18 05:40 Albumin/Globulin Ratio 0.9 (1.0-2.1) L 05/09/18 05:40 Carcinoembryonic Ag 2.3 ng/mL (0-3.0) 05/03/18 06:05 Vitamin B12 393 pg/mL (239-931) 05/03/18 06:05 Folate 9.6 ng/mL 05/03/18 06:05 Procalcitonin < 0.05 NG/ML (0.19-0.49) L 04/15/18 13:30 Urine Color Yellow (YELLOW) 04/27/18 05:42 Urine Clarity Cloudy (Clear) 04/27/18 05:42 Urine pH 6.0 (5.0-8.0) 04/27/18 05:42 Ur Specific [place] 1.011 (1.003-1.030) 04/27/18 05:42 Urine Protein 30 mg/dL (NEGATIVE) 04/27/18 05:42 Urine Glucose (UA) Neg mg/dL (Normal) 04/27/18 05:42 Urine Ketones Negative mg/dL (NEGATIVE) 04/27/18 05:42 Urine Blood Large (NEGATIVE) 04/27/18 05:42 Urine Nitrate Negative (NEGATIVE) 04/27/18 05:42 Urine Bilirubin Negative (NEGATIVE) 04/27/18 05:42 Urine Urobilinogen 0.2-1.0 mg/dL (0.2-1.0) 04/27/18 05:42 Ur Leukocyte Esterase Small Garcia/uL (Negative) 04/27/18 05:42 Urine RBC (Auto) 588 /hpf (0-3) H 04/27/18 05:42 Urine WBC Clumps (Auto) Few /hpf (NONE) H 04/27/18 05:42 Urine Microscopic WBC 27 /hpf (0-5) H 04/27/18 05:42 Urine Bacteria Occ (<OCC) H 04/27/18 05:42 Urine Yeast (Budding) Few /hpf (NEGATIVE) H 04/27/18 05:42 - Hospital Course Hospital Course: 77 y/o male with a PMH of rectal adenocarcinoma, emile-rectal mass, right inguinal hernias, chronic anemia, and BPH admitted for VRE urinary tract infection and perirectal abscess. Patient is s/p cysto b/l stent insertion, perirectal mass biopsies and I&D, EUA, rigid sigmoidoscopy and s/p partial colectomy and colostomy bag. Perineum Biopsy: Confirmed Adenocarcinoma. As per surgery, Rectal tumor is outside the surgical resection margins, patient is not candidate for surgical resection at this time and suggested Chemo+RXT. Dr. Thompson consulted, Patient is s/p Portacath placement. As per Dr. Thompson; modified FOLFOX6 + Avastin on Sunday. Patient discharged home with colostomy care, wound care instruction and return for chemo on Sunday. Discharge Exam - Head Exam Head Exam: ATRAUMATIC - Eye Exam Eye Exam: Normal appearance - ENT Exam ENT Exam: Mucous Membranes Moist - Neck Exam Neck exam: Normal Inspection - Respiratory Exam Respiratory Exam: Clear to PA & Lateral, NORMAL BREATHING PATTERN - Cardiovascular Exam Cardiovascular Exam: REGULAR RHYTHM Additional comments: Right upper chest chemo-port - GI/Abdominal Exam Additional comments: left colostomy bag, clean, minimum output seen this morning, no blood Right prior colostomy site, clear discharge was seen , no erythema or tenderness - Rectal Exam Additional comments: rectal mass/abscess: non-tender, c/w wound care - Extremities Exam Extremities exam: normal capillary refill, normal inspection Additional comments: No edema or open wound - Back Exam Back exam: NORMAL INSPECTION. absent: CVA tenderness (L), CVA tenderness (R) - Neurological Exam Neurological exam: Alert, CN II-XII Intact, Oriented x3, Reflexes Normal - Psychiatric Exam Psychiatric exam: Normal Affect - Skin Skin Exam: Dry, Intact, Normal Color, Warm Discharge Plan - Discharge Medications Prescriptions: Tamsulosin [Flomax] 0.4 mg PO DAILY 30 Days #30 cap - Follow Up Plan Condition: STABLE Disposition: HOME/ ROUTINE Instructions: Chemotherapy, Urinary Tract Infection, Adult (DC), Colostomy Care Additional Instructions: Patient to come to the hospital for Chemo on Sunday (Dr. Thompson) C/w rectal mass/wound care C/w Colostomy care and previous colostomy site dressing care regresar al hospital el para chemoterapia continue con cuidado de colostomia e irida. Lia en la clinica de el paso 3 a las 10:40am, favor de llegar media hora antes. Referrals: Neo Thompson MD [Staff Provider] - Christy Fernandez MD [Staff Provider] -
[2018-05-09] MEDS: Potassium Chloride 20 mEq ER Tab PO SCH (11:26)
[2018-05-09] MEDS: Enoxaparin 40 mg Syringe SC SCH (11:26)
--- NOTE | 2018-05-10 13:58 | CP.PCM.PN ---
Subjective - Date & Time of Evaluation Date of Evaluation: 05/10/18 Time of Evaluation: 10:00 - Subjective Subjective: Patient seen and examined this morning. NAD, no acute distress. Patient is waiting for Hospice update. Tolerating PO, ambulating, colostomy bag with minimum output, no blood, urinating with out any difficulty. Objective - Vital Signs/Intake and Output Vital Signs (last 24 hours): Temp Pulse Resp BP Pulse Ox 97.8 F 67 20 141/77 99 05/10/18 07:57 05/10/18 07:57 05/10/18 07:57 05/10/18 07:57 05/10/18 07:57 - Medications Medications: Current Medications Docusate Sodium (Colace) 100 mg PO DAILY PRN PRN Reason: Constipation Lactated Ringer's (Lactated Ringer's 500ml) 500 mls @ 100 mls/hr IV .Q5H [facility] Last Admin: 05/08/18 20:54 Dose: Not Given Mupirocin (Bactroban Ointment) 1 applic TOP DAILY [facility] Last Admin: 05/09/18 18:38 Dose: 1 applic Ondansetron HCl (Zofran Odt) 4 mg PO Q8H PRN PRN Reason: Nausea/Vomiting Potassium Chloride (K-Dur 20 Meq Er Tab) 40 meq PO DAILY [facility] Last Admin: 05/09/18 11:26 Dose: 40 meq Tamsulosin HCl (Flomax) 0.4 mg PO DAILY [facility] Last Admin: 05/09/18 11:26 Dose: 0.4 mg - Labs Labs: 05/09/18 05:40 05/09/18 05:40 PT 10.8 Seconds (9.8-13.1) 05/04/18 04:00 INR 1.0 (0.9-1.2) 05/04/18 04:00 APTT 29.1 Seconds (25.6-37.1) 05/04/18 04:00 - Constitutional Appears: No Acute Distress - Head Exam Head Exam: NORMAL INSPECTION - Eye Exam Eye Exam: Normal appearance - ENT Exam ENT Exam: Mucous Membranes Moist - Neck Exam Neck Exam: Normal Inspection - Respiratory Exam Respiratory Exam: Clear to Ausculation Bilateral, NORMAL BREATHING PATTERN - Cardiovascular Exam Cardiovascular Exam: REGULAR RHYTHM - GI/Abdominal Exam Additional comments: left colostomy bag, clean, minimum output seen this morning, no blood Right prior colostomy site, clear discharge was seen , no erythema or tenderness - Rectal Exam Additional comments: rectal mass/abscess: non-tender, c/w wound care management - Extremities Exam Extremities Exam: Normal Capillary Refill, Normal Inspection - Back Exam Back Exam: NORMAL INSPECTION. absent: CVA tenderness (L), CVA tenderness (R) - Neurological Exam Neurological Exam: Alert, Awake, Oriented x3 - Psychiatric Exam Psychiatric exam: Normal Affect - Skin Skin Exam: Normal Color Assessment and Plan (1) Rectal adenocarcinoma Status: Chronic (2) Abscess of buttock, left Status: Acute (3) Colostomy care Status: Chronic (4) Hydronephrosis Status: Acute (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 Rectal Adenocarcinoma with perirectal abscess -Abd/pelvic CT on 04/15/18: IMPRESSION: abnormal hyperdense changes seen related to an irregularly thickened rectum suspicious for neoplasm with extension the left emile rectal/perianal/medical left buttock soft tissues. Abscess is not favored though not completely excluded here. No emphysematous changes are related or definitive fluid collection. -S/P perirectal mass biospy, EUA and rigid sigmoidoscopy on 04/23/18 -Rectal biopsy: rectal adenocarcinoma -Surgery lin' appreciated; No surgical interventions at this time, possible radiation vs Chemo -As per administration (04/28/18) XRT is not an option at this time -04/30/18; Medical options (chemo, surgical) at [facility] Vs Hospice options discussed in presence of Dr. Fernandez. Risks and Benefits explained, all the questions were answered: [employer] interpreter deaf (Angelia, [phone]), Patient agreed with Hospice option -CT abdo/pelvis/chest 05/01: No liver/adrenal mets, no pulm nodules, no osseous pathology, b/l hydronephrosis, moderate bladder distention, enlarged prostate. -Hem Onc consult; Dr. Thompson appreciated for further management: 05/02/18, "local progression of his disease but no distant metastasis, recommend definitive chemotherapy + radiation; case discussed with radiation oncology Dr. Aragon, outpatient treatment not possible in the past as patient does not have the means to travel for f/u and treatment.patient would benefit from inpatient treatment" -Administration 05/03/18: Patient is approved for chemo -Retic count 1.6, B12 393, Folate 9.6 , Ferritin 118, CEA 2.3 -Pain management; Morphine -C/w wound care management -Chemo-Port placed, -Dr. Thompson: plan for modified FOLFOX6 +Avastin q2 weeks on sunday -(05/09/18): Patient refused to go home, he doesnt have a place to go and wants to go to hospice now -Follow up Social- Worker for HOSPICE -Will remove Chemo-port before Hospice LYLE - Improved , likely post renal azotemia 2/2 urinary retention - Monitor BUN/CR B/L hydronephrosis on CT -Afebrile -CT abd/pelvis: Gross bilateral hydronephrosis has increased potentially is a function of cystitis or neoplastic urinary bladder findings. -S/P Cystoscopy and B/L stent insertion on 04/23/18. S/p VRE Urinary Tract Infection -Urine cx 04/09/18: VRE, sensitive to linezolid -Repeat urine c&s: no growth -ID on board -S/p linezolid 600 mg Q12 PO for 7days Fistula/colostomy draining -s/p partial colectomy and colostomy bag -Surgery on board -Wound care on board for colostomy care Hypokalemia -Improved -f/u CMP tomorrow Elevated BP -no hx HTN -Likely secondary to pain -Pain management with morphine -Monitor vitals BPH -on Flomax DVT prophylaxis -Scds -Lovenox 40 mg SC qhs DNR/DNI
[2018-05-10] MEDS: Enoxaparin 40 mg Syringe SC SCH (15:17)
[2018-05-10] MEDS: Potassium Chloride 20 mEq ER Tab PO SCH (15:17)
--- NOTE | 2018-05-11 10:05 | CP.PCM.PN ---
Subjective - Date & Time of Evaluation Date of Evaluation: 05/11/18 Time of Evaluation: 08:50 - Subjective Subjective: Waiting for Hospice Patient seen and evaluated at bedside this morning. NAD, denies any acute event overnight. Denies chest pain, SOB, abdominal pain, dizziness, urinary symptoms or weakness. tolerating PO diet, voiding freely, colostomy bag with stool output ; no blood. Objective - Vital Signs/Intake and Output Vital Signs (last 24 hours): Temp Pulse Resp BP Pulse Ox 979 F H 62 20 141/75 99 05/11/18 08:23 05/11/18 08:23 05/11/18 08:23 05/11/18 08:23 05/11/18 08:23 - Medications Medications: Current Medications Docusate Sodium (Colace) 100 mg PO DAILY PRN PRN Reason: Constipation Mupirocin (Bactroban Ointment) 1 applic TOP DAILY [facility] Last Admin: 05/10/18 15:16 Dose: 1 applic Ondansetron HCl (Zofran Odt) 4 mg PO Q8H PRN PRN Reason: Nausea/Vomiting Potassium Chloride (K-Dur 20 Meq Er Tab) 40 meq PO DAILY [facility] Last Admin: 05/10/18 15:17 Dose: 40 meq Tamsulosin HCl (Flomax) 0.4 mg PO DAILY [facility] Last Admin: 05/10/18 15:18 Dose: 0.4 mg - Labs Labs: 05/09/18 05:40 05/09/18 05:40 PT 10.8 Seconds (9.8-13.1) 05/04/18 04:00 INR 1.0 (0.9-1.2) 05/04/18 04:00 APTT 29.1 Seconds (25.6-37.1) 05/04/18 04:00 - Constitutional Appears: No Acute Distress - Head Exam Head Exam: NORMAL INSPECTION - Eye Exam Eye Exam: Normal appearance - ENT Exam ENT Exam: Mucous Membranes Moist - Neck Exam Neck Exam: Normal Inspection Additional comments: Chemo-Port placed - Respiratory Exam Respiratory Exam: Clear to Ausculation Bilateral, NORMAL BREATHING PATTERN - Cardiovascular Exam Cardiovascular Exam: REGULAR RHYTHM - GI/Abdominal Exam GI & Abdominal Exam: Soft, Normal Bowel Sounds Additional comments: left colostomy bag, clean, minimum output seen this morning, no blood Right prior colostomy site, clear discharge was seen , no erythema or tenderness - Rectal Exam Additional comments: rectal mass/abscess: non-tender, c/w wound care management Assessment and Plan (1) Rectal adenocarcinoma Status: Chronic (2) Abscess of buttock, left Status: Acute (3) Colostomy care Status: Chronic (4) Hydronephrosis Status: Acute (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 Patient agrees for HOSPICE Rectal Adenocarcinoma with perirectal abscess -Abd/pelvic CT on 04/15/18: IMPRESSION: abnormal hyperdense changes seen related to an irregularly thickened rectum suspicious for neoplasm with extension the left emile rectal/perianal/medical left buttock soft tissues. Abscess is not favored though not completely excluded here. No emphysematous changes are related or definitive fluid collection. -S/P perirectal mass biospy, EUA and rigid sigmoidoscopy on 04/23/18 -Rectal biopsy: rectal adenocarcinoma -Surgery lin' appreciated; No surgical interventions at this time, possible radiation vs Chemo -As per administration (04/28/18) XRT is not an option at this time -04/30/18; Medical options (chemo, surgical) at [facility] Vs Hospice options discussed in presence of Dr. Fernandez. 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 -Hem Onc consult; Dr. Thompson appreciated for further management: 05/02/18, "local progression of his disease but no distant metastasis, recommend definitive chemotherapy + radiation; case discussed with radiation oncology Dr. Aragon, outpatient treatment not possible in the past as patient does not have the means to travel for f/u and treatment.patient would benefit from inpatient treatment" -Administration 05/03/18: Patient is approved for chemo -Retic count 1.6, B12 393, Folate 9.6 , Ferritin 118, CEA 2.3 -Pain management; Morphine -C/w wound care management -Chemo-Port placed, -Dr. Thompson: plan for modified FOLFOX6 +Avastin q2 weeks on sunday -(05/09/18): Patient refused to go home, he doesnt have a place to go and wants to go to hospice now -Follow up Social- Worker for HOSPICE -Will remove Chemo-port before Hospice [facility] - Improved , likely post renal azotemia 2/2 urinary retention - Monitor BUN/CR B/L hydronephrosis on CT -Afebrile -CT abd/pelvis: Gross bilateral hydronephrosis has increased potentially is a function of cystitis or neoplastic urinary bladder findings. -S/P Cystoscopy and B/L stent insertion on 04/23/18. S/p VRE Urinary Tract Infection -Urine cx 04/09/18: VRE, sensitive to linezolid -Repeat urine c&s: no growth -ID on board -S/p linezolid 600 mg Q12 PO for 7days Fistula/colostomy draining -s/p partial colectomy and colostomy bag -Surgery on board -Wound care on board for colostomy care Hypokalemia -Improved Elevated BP -no hx HTN -Likely secondary to pain -Pain management with morphine -Monitor vitals BPH -on Flomax DVT prophylaxis -Scds -Lovenox 40 mg SC DNR/DNI
[2018-05-11] MEDS: Potassium Chloride 20 mEq ER Tab PO SCH (11:35)
[2018-05-11] MEDS: Enoxaparin 40 mg Syringe SC SCH (17:02)
[2018-05-12 07:18] LABS: BLOOD UREA NITROGEN 24 mg/dl (9-20); CALCIUM 8.4 mg/dL (8.4-10.2); GFR AFRICAN-AMERICAN > 60; GFR NON-AFRICAN AMERICAN > 60
--- NOTE | 2018-05-12 07:28 | CP.PCM.PN ---
Subjective - Date & Time of Evaluation Date of Evaluation: 05/12/18 Time of Evaluation: 07:35 - Subjective Subjective: 77M seen and examined at bedside with attending. Patient says he is feeling okay and denies any SOB, chest pain/palpitations, or abdominal pain. Objective - Vital Signs/Intake and Output Vital Signs (last 24 hours): Temp Pulse Resp BP Pulse Ox 36.5 C 64 20 116/67 99 05/12/18 00:33 05/12/18 00:33 05/12/18 00:33 05/12/18 00:33 05/12/18 00:33 Intake and Output: 05/12/18 05/12/18 06:59 18:59 Output Total 200 Balance -200 - Medications Medications: Current Medications Docusate Sodium (Colace) 100 mg PO DAILY PRN PRN Reason: Constipation Enoxaparin Sodium (Lovenox) 40 mg SC DAILY [facility] PRN Reason: Protocol Last Admin: 05/11/18 17:02 Dose: 40 mg Mupirocin (Bactroban Ointment) 1 applic TOP DAILY [facility] Last Admin: 05/11/18 11:35 Dose: 1 applic Ondansetron HCl (Zofran Odt) 4 mg PO Q8H PRN PRN Reason: Nausea/Vomiting Potassium Chloride (K-Dur 20 Meq Er Tab) 40 meq PO DAILY [facility] Last Admin: 05/11/18 11:35 Dose: 40 meq Tamsulosin HCl (Flomax) 0.4 mg PO DAILY [facility] Last Admin: 05/11/18 11:35 Dose: 0.4 mg - Labs Labs: 05/09/18 05:40 05/12/18 05:20 PT 10.8 Seconds (9.8-13.1) 05/04/18 04:00 INR 1.0 (0.9-1.2) 05/04/18 04:00 APTT 29.1 Seconds (25.6-37.1) 05/04/18 04:00 - Constitutional Appears: Non-toxic, No Acute Distress - Eye Exam Eye Exam: EOMI Pupil Exam: PERRL - ENT Exam ENT Exam: Mucous Membranes Moist, Normal Exam - Neck Exam Neck Exam: Normal Inspection - Respiratory Exam Respiratory Exam: Clear to Ausculation Bilateral, NORMAL BREATHING PATTERN - Cardiovascular Exam Cardiovascular Exam: REGULAR RHYTHM - Rectal Exam Rectal Exam: absent: NORMAL INSPECTION (Indurated LEFT emile-anal area with areas of ulceration c/w underlying malignancy) - Extremities Exam Extremities Exam: Full ROM, Normal Capillary Refill - Neurological Exam Neurological Exam: Alert, Awake - Skin Skin Exam: Dry, Warm Assessment and Plan - Assessment and Plan (Free Text) Assessment: 77M tolerating PO, no significant changes in status and awaits hospice placement. - Will need chemaport removed prior to d/c - Regular Diet - DVT Prophylaxis - c/w Bowel Regimen - BPH: c/w FloMax
[2018-05-12] MEDS: Enoxaparin 40 mg Syringe SC SCH (09:43)
[2018-05-12] MEDS: Potassium Chloride 20 mEq ER Tab PO SCH (09:44)
[2018-05-12] MEDS ORDERED: Sodium Chloride 0.9% 500 ML IV SCH (10:45)
[2018-05-13] MEDS: Enoxaparin 40 mg Syringe SC SCH (09:02)
[2018-05-13] MEDS: Potassium Chloride 20 mEq ER Tab PO SCH (09:03)
--- NOTE | 2018-05-13 09:13 | CP.PCM.PN ---
Subjective - Date & Time of Evaluation Date of Evaluation: 05/13/18 Time of Evaluation: 08:00 - Subjective Subjective: Waiting for Hospice Patient seen and examined this morning at bedside. no acute distress, no acute event overnight. Patient is tolerating PO, voiding, ambulating in room, denies chest pain, SOB, dizziness, blurred vision, palpitations, abdominal pain, urinary symptoms or weakness. Objective - Vital Signs/Intake and Output Vital Signs (last 24 hours): Temp Pulse Resp BP Pulse Ox 97.8 F 69 19 129/69 99 05/13/18 07:56 05/13/18 07:56 05/13/18 07:56 05/13/18 07:56 05/13/18 07:56 Intake and Output: 05/13/18 05/13/18 06:59 18:59 Output Total 200 Balance -200 - Medications Medications: Current Medications Docusate Sodium (Colace) 100 mg PO DAILY PRN PRN Reason: Constipation Last Admin: 05/13/18 09:02 Dose: 100 mg Enoxaparin Sodium (Lovenox) 40 mg SC DAILY [facility] PRN Reason: Protocol Last Admin: 05/13/18 09:02 Dose: 40 mg Mupirocin (Bactroban Ointment) 1 applic TOP DAILY [facility] Last Admin: 05/12/18 18:22 Dose: Not Given Potassium Chloride (K-Dur 20 Meq Er Tab) 20 meq PO DAILY [facility] Last Admin: 05/13/18 09:03 Dose: 20 meq Tamsulosin HCl (Flomax) 0.4 mg PO DAILY [facility] Last Admin: 05/13/18 09:03 Dose: 0.4 mg - Labs Labs: 05/09/18 05:40 05/12/18 05:20 PT 10.8 Seconds (9.8-13.1) 05/04/18 04:00 INR 1.0 (0.9-1.2) 05/04/18 04:00 APTT 29.1 Seconds (25.6-37.1) 05/04/18 04:00 - Constitutional Appears: No Acute Distress - Head Exam Head Exam: NORMAL INSPECTION - Eye Exam Eye Exam: Normal appearance - ENT Exam ENT Exam: Mucous Membranes Moist - Neck Exam Additional comments: Chemo-port placed - Respiratory Exam Respiratory Exam: Clear to Ausculation Bilateral, NORMAL BREATHING PATTERN. absent: Wheezes - Cardiovascular Exam Cardiovascular Exam: REGULAR RHYTHM - GI/Abdominal Exam Additional comments: left colostomy bag, clean, minimum output seen this morning, no blood Right prior colostomy site, clear discharge was seen , no erythema or tenderness - Rectal Exam Additional comments: rectal mass/abscess: non-tender, c/w wound care management Assessment and Plan (1) Rectal adenocarcinoma Status: Chronic (2) Abscess of buttock, left Status: Acute (3) Colostomy care Status: Chronic (4) Hydronephrosis Status: Acute (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 Patient agrees for HOSPICE Rectal Adenocarcinoma with perirectal abscess -Abd/pelvic CT on 04/15/18: IMPRESSION: abnormal hyperdense changes seen related to an irregularly thickened rectum suspicious for neoplasm with extension the left emile rectal/perianal/medical left buttock soft tissues. Abscess is not favored though not completely excluded here. No emphysematous changes are related or definitive fluid collection. -S/P perirectal mass biospy, EUA and rigid sigmoidoscopy on 04/23/18 -Rectal biopsy: rectal adenocarcinoma -Surgery lin' appreciated; No surgical interventions at this time, possible radiation vs Chemo -As per administration (04/28/18) XRT is not an option at this time -04/30/18; Medical options (chemo, surgical) at [facility] Vs Hospice options discussed in presence of Dr. Fernandez. Risks and Benefits explained, all the questions were answered: [employer] community life director (Angelia, [phone]), Patient agreed with Hospice option -CT abdo/pelvis/chest 05/01: No liver/adrenal mets, no pulm nodules, no osseous pathology, b/l hydronephrosis, moderate bladder distention, enlarged prostate. -Hem Onc consult; Dr. Thompson appreciated for further management: 05/02/18, "local progression of his disease but no distant metastasis, recommend definitive chemotherapy + radiation; case discussed with radiation oncology Dr. Aragon, outpatient treatment not possible in the past as patient does not have the means to travel for f/u and treatment.patient would benefit from inpatient treatment" -Administration 05/03/18: Patient is approved for chemo -Retic count 1.6, B12 393, Folate 9.6 , Ferritin 118, CEA 2.3 -Pain management; Morphine -C/w wound care management -Chemo-Port placed, -Dr. Thompson: plan for modified FOLFOX6 +Avastin q2 weeks on sunday -(05/09/18): Patient refused to go home, he doesnt have a place to go and wants to go to hospice now -Follow up Social- Worker for HOSPICE -Will remove Chemo-port before Hospice [facility] - Improved , likely post renal azotemia 2/2 urinary retention - Monitor BUN/CR B/L hydronephrosis on CT -Afebrile -CT abd/pelvis: Gross bilateral hydronephrosis has increased potentially is a function of cystitis or neoplastic urinary bladder findings. -S/P Cystoscopy and B/L stent insertion on 04/23/18. S/p VRE Urinary Tract Infection -Urine cx 04/09/18: VRE, sensitive to linezolid -Repeat urine c&s: no growth -ID on board -S/p linezolid 600 mg Q12 PO for 7days Fistula/colostomy draining -s/p partial colectomy and colostomy bag -Surgery on board -Wound care on board for colostomy care Hypokalemia -Improved Elevated BP -no hx HTN -Likely secondary to pain -Pain management with morphine -Monitor vitals BPH -on Flomax DVT prophylaxis -Scds -Lovenox 40 mg SC DNR/DNI
[2018-05-13] MEDS ORDERED: Tuberculin 5 Units/0.1 ml Inj ID ONE (12:00)
[2018-05-14] MEDS: Enoxaparin 40 mg Syringe SC SCH (09:00)
[2018-05-14] MEDS: Potassium Chloride 20 mEq ER Tab PO SCH (09:01)
--- NOTE | 2018-05-14 09:35 | CP.PCM.PN ---
Subjective - Date & Time of Evaluation Date of Evaluation: 05/14/18 Time of Evaluation: 07:25 - Subjective Subjective: Patient seen and examined this morning at bedside. NAD, No acute event overnight. Patient denies any dizziness, blurred vision, palpitations, chest pain, SOB, abdominal pain or urinary symptoms. COlostomy with output, no blood. Objective - Vital Signs/Intake and Output Vital Signs (last 24 hours): Temp Pulse Resp BP Pulse Ox 98.2 F 65 19 137/77 97 05/14/18 08:01 05/14/18 08:01 05/14/18 08:01 05/14/18 08:01 05/14/18 08:01 - Medications Medications: Current Medications Docusate Sodium (Colace) 100 mg PO DAILY PRN PRN Reason: Constipation Last Admin: 05/14/18 09:00 Dose: 100 mg Enoxaparin Sodium (Lovenox) 40 mg SC DAILY [facility] PRN Reason: Protocol Last Admin: 05/14/18 09:00 Dose: 40 mg Mupirocin (Bactroban Ointment) 1 applic TOP DAILY [facility] Last Admin: 05/14/18 09:01 Dose: 1 applic Potassium Chloride (K-Dur 20 Meq Er Tab) 20 meq PO DAILY [facility] Last Admin: 05/14/18 09:01 Dose: 20 meq Tamsulosin HCl (Flomax) 0.4 mg PO DAILY [facility] Last Admin: 05/14/18 09:01 Dose: 0.4 mg - Labs Labs: 05/09/18 05:40 05/12/18 05:20 PT 10.8 Seconds (9.8-13.1) 05/04/18 04:00 INR 1.0 (0.9-1.2) 05/04/18 04:00 APTT 29.1 Seconds (25.6-37.1) 05/04/18 04:00 - Constitutional Appears: No Acute Distress - Head Exam Head Exam: NORMAL INSPECTION - Eye Exam Eye Exam: Normal appearance - ENT Exam ENT Exam: Mucous Membranes Moist - Neck Exam Neck Exam: Normal Inspection - Respiratory Exam Respiratory Exam: Clear to Ausculation Bilateral, NORMAL BREATHING PATTERN - Cardiovascular Exam Cardiovascular Exam: REGULAR RHYTHM - GI/Abdominal Exam Additional comments: left colostomy bag, clean, minimum output seen this morning, no blood Right prior colostomy site, clear discharge was seen , no erythema or tenderness - Rectal Exam Additional comments: rectal mass/abscess: non-tender, c/w wound care management - Extremities Exam Extremities Exam: Normal Capillary Refill - Back Exam Back Exam: NORMAL INSPECTION. 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 Patient agrees for HOSPICE Rectal Adenocarcinoma with perirectal abscess -Awaiting for Hospice placement -Follow up Social- Worker for HOSPICE -Will remove Chemo-port before Hospice B/L hydronephrosis on CT -Afebrile -CT abd/pelvis: Gross bilateral hydronephrosis has increased potentially is a function of cystitis or neoplastic urinary bladder findings. -S/P Cystoscopy and B/L stent insertion on 04/23/18. Fistula/colostomy draining -s/p partial colectomy and colostomy bag -Surgery on board -Wound care on board for colostomy care BPH -on Flomax DVT prophylaxis -Scds -Lovenox 40 mg SC DNR/DNI
--- NOTE | 2018-05-14 16:05 | CP.PCM.PN ---
Subjective - Date & Time of Evaluation Date of Evaluation: 05/14/18 Time of Evaluation: 12:00 - Subjective Subjective: No complaints, declined chemotherapy wants hospice Objective - Vital Signs/Intake and Output Vital Signs (last 24 hours): Temp Pulse Resp BP Pulse Ox 98.2 F 65 19 137/77 97 05/14/18 08:01 05/14/18 08:01 05/14/18 08:01 05/14/18 08:01 05/14/18 08:01 - Medications Medications: Current Medications Docusate Sodium (Colace) 100 mg PO DAILY PRN PRN Reason: Constipation Last Admin: 05/14/18 09:00 Dose: 100 mg Mupirocin (Bactroban Ointment) 1 applic TOP DAILY [facility] Last Admin: 05/14/18 09:01 Dose: 1 applic Potassium Chloride (K-Dur 20 Meq Er Tab) 20 meq PO DAILY [facility] Last Admin: 05/14/18 09:01 Dose: 20 meq - Labs Labs: 05/09/18 05:40 05/12/18 05:20 PT 10.8 Seconds (9.8-13.1) 05/04/18 04:00 INR 1.0 (0.9-1.2) 05/04/18 04:00 APTT 29.1 Seconds (25.6-37.1) 05/04/18 04:00 - Head Exam Head Exam: ATRAUMATIC - Eye Exam Eye Exam: Normal appearance - ENT Exam ENT Exam: Mucous Membranes Dry - Respiratory Exam Respiratory Exam: NORMAL BREATHING PATTERN - Cardiovascular Exam Cardiovascular Exam: +S1, +S2 - GI/Abdominal Exam GI & Abdominal Exam: Normal Bowel Sounds Assessment and Plan (1) Rectal cancer Assessment & Plan: stage IV declined chemotherapy prefers hospice Status: Acute (2) Anemia Assessment & Plan: chronic disease Status: Acute
[2018-05-15] MEDS: Potassium Chloride 20 mEq ER Tab PO SCH (08:51)
--- NOTE | 2018-05-15 10:25 | CP.PCM.PN ---
Subjective - Date & Time of Evaluation Date of Evaluation: 05/15/18 Time of Evaluation: 07:50 - Subjective Subjective: PPD negative. Patient seen and examined at bedside this morning. NAD, No acute event overnight. Patient denies any dizziness, blurred vision, palpitations, chest pain, SOB, abdominal pain or urinary symptoms. Colostomy with output, no blood. Objective - Vital Signs/Intake and Output Vital Signs (last 24 hours): Temp Pulse Resp BP Pulse Ox 97.9 F 69 18 119/66 98 05/15/18 08:01 05/15/18 08:01 05/15/18 08:01 05/15/18 08:01 05/15/18 08:01 - Medications Medications: Current Medications Docusate Sodium (Colace) 100 mg PO DAILY PRN PRN Reason: Constipation Last Admin: 05/15/18 08:44 Dose: 100 mg Mupirocin (Bactroban Ointment) 1 applic TOP DAILY [facility] Last Admin: 05/15/18 08:51 Dose: 1 applic Potassium Chloride (K-Dur 20 Meq Er Tab) 20 meq PO DAILY [facility] Last Admin: 05/15/18 08:51 Dose: 20 meq - Labs Labs: 05/09/18 05:40 05/12/18 05:20 PT 10.8 Seconds (9.8-13.1) 05/04/18 04:00 INR 1.0 (0.9-1.2) 05/04/18 04:00 APTT 29.1 Seconds (25.6-37.1) 05/04/18 04:00 - Constitutional Appears: No Acute Distress - Head Exam Head Exam: NORMAL INSPECTION - Eye Exam Eye Exam: Normal appearance - ENT Exam ENT Exam: Mucous Membranes Moist - Neck Exam Neck Exam: Normal Inspection - Respiratory Exam Respiratory Exam: Clear to Ausculation Bilateral, NORMAL BREATHING PATTERN - Cardiovascular Exam Cardiovascular Exam: REGULAR RHYTHM - GI/Abdominal Exam GI & Abdominal Exam: Soft, Normal Bowel Sounds Additional comments: left colostomy bag, clean, minimum output seen this morning, no blood Right prior colostomy site, clear discharge was seen , no erythema or tenderness - Rectal Exam Additional comments: rectal mass/abscess: non-tender, c/w wound care management - Extremities Exam Extremities Exam: Normal Inspection - Back Exam Back Exam: NORMAL INSPECTION - Neurological Exam Neurological Exam: Alert, Awake, CN II-XII Intact, Oriented x3 - Psychiatric Exam Psychiatric exam: Normal Affect - Skin Skin Exam: Normal Color Assessment and Plan (1) Rectal adenocarcinoma Status: Chronic (2) Abscess of buttock, left Status: Acute (3) Colostomy care Status: Chronic (4) Hydronephrosis Status: Acute (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 Patient agrees for HOSPICE Rectal Adenocarcinoma with perirectal abscess -Awaiting for Hospice placement -Follow up Social- Worker for HOSPICE -Will remove Chemo-port before Hospice B/L hydronephrosis on CT -Afebrile -CT abd/pelvis: Gross bilateral hydronephrosis has increased potentially is a function of cystitis or neoplastic urinary bladder findings. -S/P Cystoscopy and B/L stent insertion on 04/23/18. Fistula/colostomy draining -s/p partial colectomy and colostomy bag -Surgery on board -Wound care on board for colostomy care BPH -on Flomax PPD negative DVT prophylaxis -Scds -Lovenox 40 mg SC DNR/DNI
[2018-05-15] MEDS ORDERED: Sodium Chloride 0.9% 1,000 ML IV SCH (11:15)
[2018-05-15 13:59] LABS: BASO # 0.1 K/uL (0.0-0.2); BASO % 0.9 % (0.0-2.0); EOS # 0.6 K/uL (0.0-0.7); EOS % 9.6 % (0.0-4.0); HEMOGLOBIN 9.7 g/dL (12.0-18.0); LYMPH # 1.1 K/uL (1.0-4.3); LYMPH % 18.4 % (20.0-40.0); MEAN CELL VOLUME 87.6 fl (80.0-94.0); MEAN CORPUSCULAR HEMOGLOBIN 29.4 pg (27.0-31.0); MEAN CORPUSCULAR HGB CONC 33.6 g/dL (33.0-37.0); MEAN PLATELET VOLUME 7.8 fl (7.2-11.7); MONO # 0.6 K/uL (0.0-0.8); MONO % 9.3 % (0.0-10.0); NEUT # 3.8 K/uL (1.8-7.0); NEUT % 61.8 % (50.0-75.0); RBC 3.31 Mil/uL (4.40-5.90); RED CELL DISTRIBUTION WIDTH 16.2 % (11.5-14.5); WHITE BLOOD COUNT 6.1 K/uL (4.8-10.8)
[2018-05-15 14:16] LABS: BLOOD UREA NITROGEN 28 mg/dl (9-20); CALCIUM 7.8 mg/dL (8.4-10.2); GFR AFRICAN-AMERICAN > 60; GFR NON-AFRICAN AMERICAN > 60
[2018-05-15] MEDS: Enoxaparin 40 mg Syringe SC SCH (14:45)
[2018-05-15] MEDS ORDERED: Enoxaparin 40 mg Syringe SC SCH (15:00)
[2018-05-16] MEDS: Potassium Chloride 20 mEq ER Tab PO SCH (11:06)
--- NOTE | 2018-05-16 11:52 | CP.PCM.PN ---
Subjective - Date & Time of Evaluation Date of Evaluation: 05/16/18 Time of Evaluation: 07:50 - Subjective Subjective: Awaiting Hospice Patient seen and examined at bedside this morning. NAD, No acute event overnight. Patient denies any dizziness, blurred vision, palpitations, chest pain, SOB, abdominal pain or urinary symptoms. Colostomy with output, no blood. Objective - Vital Signs/Intake and Output Vital Signs (last 24 hours): Temp Pulse Resp BP Pulse Ox 97.7 F 61 20 123/69 100 05/16/18 08:11 05/16/18 08:11 05/16/18 08:11 05/16/18 08:11 05/16/18 08:11 - Medications Medications: Current Medications Docusate Sodium (Colace) 100 mg PO DAILY PRN PRN Reason: Constipation Last Admin: 05/15/18 08:44 Dose: 100 mg Enoxaparin Sodium (Lovenox) 40 mg SC DAILY TAYLA PRN Reason: Protocol Last Admin: 05/15/18 14:45 Dose: 40 mg Mupirocin (Bactroban Ointment) 1 applic TOP DAILY TAYLA Last Admin: 05/15/18 08:51 Dose: 1 applic Potassium Chloride (K-Dur 20 Meq Er Tab) 20 meq PO DAILY TAYLA Last Admin: 05/16/18 11:06 Dose: 20 meq - Labs Labs: 05/15/18 13:54 05/15/18 13:54 PT 10.8 Seconds (9.8-13.1) 05/04/18 04:00 INR 1.0 (0.9-1.2) 05/04/18 04:00 APTT 29.1 Seconds (25.6-37.1) 05/04/18 04:00 - Constitutional Appears: No Acute Distress - Head Exam Head Exam: NORMAL INSPECTION - Eye Exam Eye Exam: EOMI, Normal appearance Pupil Exam: NORMAL ACCOMODATION - ENT Exam ENT Exam: Mucous Membranes Moist - Neck Exam Neck Exam: Normal Inspection - Respiratory Exam Respiratory Exam: Clear to Ausculation Bilateral, NORMAL BREATHING PATTERN - Cardiovascular Exam Cardiovascular Exam: REGULAR RHYTHM - GI/Abdominal Exam Additional comments: left colostomy bag, clean, minimum output seen this morning, no blood Right prior colostomy site, clear discharge was seen , no erythema or tenderness - Rectal Exam Additional comments: rectal mass/abscess: non-tender, c/w wound care management - Extremities Exam Extremities Exam: Normal Capillary Refill, Normal Inspection - Back Exam Back Exam: NORMAL INSPECTION - Neurological Exam Neurological Exam: Alert, Awake, Oriented x3 - Psychiatric Exam Psychiatric exam: Normal Affect - Skin Skin Exam: Dry, Intact, Normal Color, Warm Assessment and Plan (1) Rectal adenocarcinoma Status: Chronic (2) Abscess of buttock, left Status: Acute (3) Colostomy care Status: Chronic (4) Hydronephrosis Status: Acute (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 Patient agrees for HOSPICE Rectal Adenocarcinoma with perirectal abscess -Awaiting for Hospice placement -Follow up Social- Worker for HOSPICE -Chemo port placed B/L hydronephrosis on CT -Afebrile -CT abd/pelvis: Gross bilateral hydronephrosis has increased potentially is a function of cystitis or neoplastic urinary bladder findings. -S/P Cystoscopy and B/L stent insertion on 04/23/18. Fistula/colostomy draining -s/p partial colectomy and colostomy bag -Surgery on board -Wound care on board for colostomy care BPH -on Flomax PPD negative DVT prophylaxis -Scds -Lovenox 40 mg SC DNR/DNI
[2018-05-16] MEDS: Enoxaparin 40 mg Syringe SC SCH (17:17)
[2018-05-17] MEDS: Enoxaparin 40 mg Syringe SC SCH (08:17)
[2018-05-17] MEDS: Potassium Chloride 20 mEq ER Tab PO SCH (08:17)
--- NOTE | 2018-05-17 09:27 | CP.PCM.PN ---
Subjective - Date & Time of Evaluation Date of Evaluation: 05/17/18 Time of Evaluation: 07:45 - Subjective Subjective: Patient seen and examined this morning. NAD, No acute event overnight, patient reports good appetite, sleep, denies any dizziness, chest pain, SOB, palpitations, abdominal pain, urinary symptoms or weakness. As per Logistics Associate: Patient to go [place], [place] on SUNDAY. Objective - Vital Signs/Intake and Output Vital Signs (last 24 hours): Temp Pulse Resp BP Pulse Ox 97.4 F L 67 19 136/71 100 05/17/18 07:49 05/17/18 07:49 05/17/18 07:49 05/17/18 07:49 05/17/18 07:49 - Medications Medications: Current Medications Docusate Sodium (Colace) 100 mg PO DAILY PRN PRN Reason: Constipation Last Admin: 05/15/18 08:44 Dose: 100 mg Enoxaparin Sodium (Lovenox) 40 mg SC DAILY TAYLA PRN Reason: Protocol Last Admin: 05/17/18 08:17 Dose: 40 mg Mupirocin (Bactroban Ointment) 1 applic TOP DAILY TAYLA Last Admin: 05/17/18 08:17 Dose: 1 applic Potassium Chloride (K-Dur 20 Meq Er Tab) 20 meq PO DAILY TAYLA Last Admin: 05/17/18 08:17 Dose: 20 meq Tamsulosin HCl (Flomax) 0.4 mg PO DAILY TAYLA Last Admin: 05/17/18 09:14 Dose: 0.4 mg - Labs Labs: 05/15/18 13:54 05/15/18 13:54 PT 10.8 Seconds (9.8-13.1) 05/04/18 04:00 INR 1.0 (0.9-1.2) 05/04/18 04:00 APTT 29.1 Seconds (25.6-37.1) 05/04/18 04:00 - Constitutional Appears: No Acute Distress - Head Exam Head Exam: NORMAL INSPECTION - Eye Exam Eye Exam: Normal appearance - ENT Exam ENT Exam: Mucous Membranes Moist - Neck Exam Neck Exam: Normal Inspection - Respiratory Exam Respiratory Exam: Clear to Ausculation Bilateral, NORMAL BREATHING PATTERN. absent: Decreased Breath Sounds, Rales, Rhonchi, Wheezes - Cardiovascular Exam Cardiovascular Exam: REGULAR RHYTHM, +S1, +S2 - GI/Abdominal Exam GI & Abdominal Exam: Soft, Normal Bowel Sounds Additional comments: Left Colostomy bag with little output; no blood Previous colostomy site on right; watery discharge, no erythema or tenderness - Rectal Exam Additional comments: rectal mass/abscess; c/w wound care - Extremities Exam Extremities Exam: Normal Capillary Refill, Normal Inspection - Back Exam Back Exam: NORMAL INSPECTION. absent: CVA tenderness (L), CVA tenderness (R) - Neurological Exam Neurological Exam: Alert, Awake, CN II-XII Intact, Oriented x3 - Psychiatric Exam Psychiatric exam: Normal Affect - Skin Skin Exam: Dry, Intact, Normal Color, Warm Assessment and Plan (1) Rectal adenocarcinoma Status: Chronic (2) Abscess of buttock, left Status: Acute (3) Colostomy care Status: Chronic (4) Hydronephrosis Status: Acute (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 Patient agrees for HOSPICE Rectal Adenocarcinoma with perirectal abscess -Hospice placement on Sunday -Chemo port placed B/L hydronephrosis on CT -S/P Cystoscopy and B/L stent insertion on 04/23/18. Fistula/colostomy draining -s/p partial colectomy and colostomy bag -Wound care on board for colostomy care BPH -on Flomax PPD negative DVT prophylaxis -Scds -Lovenox 40 mg SC DNR/DNI
[2018-05-18 06:13] LABS: BASO # 0.1 K/uL (0.0-0.2); BASO % 1.2 % (0.0-2.0); EOS # 0.6 K/uL (0.0-0.7); EOS % 10.3 % (0.0-4.0); HEMOGLOBIN 9.7 g/dL (12.0-18.0); LYMPH # 1.1 K/uL (1.0-4.3); LYMPH % 18.6 % (20.0-40.0); MEAN CELL VOLUME 87.8 fl (80.0-94.0); MEAN CORPUSCULAR HEMOGLOBIN 29.6 pg (27.0-31.0); MEAN CORPUSCULAR HGB CONC 33.7 g/dL (33.0-37.0); MONO # 0.5 K/uL (0.0-0.8); MONO % 7.6 % (0.0-10.0); NEUT # 3.8 K/uL (1.8-7.0); NEUT % 62.3 % (50.0-75.0); RBC 3.28 Mil/uL (4.40-5.90); RED CELL DISTRIBUTION WIDTH 15.9 % (11.5-14.5)
[2018-05-18 06:44] LABS: ALB/GLOB RATIO 0.9 (1.0-2.1); ALBUMIN 2.9 g/dL (3.5-5.0); CALCIUM 8.4 mg/dL (8.4-10.2)
[2018-05-18] MEDS ORDERED: Sodium Chloride 0.9% 500 ML IV ONE ×2 (07:17→12:35)
--- NOTE | 2018-05-18 07:42 | CP.PCM.PN ---
Subjective - Date & Time of Evaluation Date of Evaluation: 05/18/18 Time of Evaluation: 07:00 - Subjective Subjective: Hospice transfer of Sunday Patient seen and examined this morning at bedside. Denies any issue, tolerating PO, Urinating w/o any difficulty, colostomy with some output; nonbloody. Patient denies any dizziness, SOB, chest pain, abdominal pain, urinary symptoms or weakness. Objective - Vital Signs/Intake and Output Vital Signs (last 24 hours): Temp Pulse Resp BP Pulse Ox 97.7 F 72 19 151/71 H 99 05/18/18 00:00 05/18/18 00:00 05/18/18 00:00 05/18/18 00:00 05/18/18 00:00 - Medications Medications: Current Medications Docusate Sodium (Colace) 100 mg PO DAILY PRN PRN Reason: Constipation Last Admin: 05/15/18 08:44 Dose: 100 mg Enoxaparin Sodium (Lovenox) 40 mg SC DAILY TAYLA PRN Reason: Protocol Last Admin: 05/17/18 08:17 Dose: 40 mg Sodium Chloride (Sodium Chloride 0.9%) 500 mls @ 500 mls/hr IV .Q1H ONE Stop: 05/18/18 08:16 Last Admin: 05/18/18 07:32 Dose: 500 mls/hr Mupirocin (Bactroban Ointment) 1 applic TOP DAILY TAYLA Last Admin: 05/17/18 08:17 Dose: 1 applic Potassium Chloride (K-Dur 20 Meq Er Tab) 20 meq PO DAILY TAYLA Last Admin: 05/17/18 08:17 Dose: 20 meq Tamsulosin HCl (Flomax) 0.4 mg PO DAILY TAYLA Last Admin: 05/17/18 09:14 Dose: 0.4 mg - Labs Labs: 05/18/18 06:10 05/18/18 06:10 PT 10.8 Seconds (9.8-13.1) 05/04/18 04:00 INR 1.0 (0.9-1.2) 05/04/18 04:00 APTT 29.1 Seconds (25.6-37.1) 05/04/18 04:00 - Constitutional Appears: No Acute Distress - Head Exam Head Exam: NORMAL INSPECTION - Eye Exam Eye Exam: Normal appearance - ENT Exam ENT Exam: Mucous Membranes Moist - Neck Exam Additional comments: right upper chest Chemo-port - Respiratory Exam Respiratory Exam: Clear to Ausculation Bilateral, NORMAL BREATHING PATTERN - Cardiovascular Exam Cardiovascular Exam: REGULAR RHYTHM - GI/Abdominal Exam GI & Abdominal Exam: Soft, Normal Bowel Sounds. absent: Tenderness Additional comments: Left Colostomy bag with little output; no blood Previous colostomy site on right; watery discharge, no erythema or tenderness - Rectal Exam Additional comments: rectal mass/abscess; no discharge seen, no erythema, few openings seen, c/w wound care - Back Exam Back Exam: NORMAL INSPECTION. absent: CVA tenderness (L), CVA tenderness (R) - Neurological Exam Neurological Exam: Alert, Awake, Oriented x3 - Psychiatric Exam Psychiatric exam: Normal Affect - Skin Skin Exam: Normal Color Assessment and Plan (1) Rectal adenocarcinoma Status: Chronic (2) Abscess of buttock, left Status: Acute (3) Colostomy care Status: Chronic (4) Hydronephrosis Status: Acute (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 Patient agrees for HOSPICE Rectal Adenocarcinoma with perirectal abscess -Hospice placement on Sunday -Chemo port placed B/L hydronephrosis on CT -S/P Cystoscopy and B/L stent insertion on 04/23/18. Fistula/colostomy draining -s/p partial colectomy and colostomy bag -Wound care on board for colostomy care BPH -on Flomax PPD negative DVT prophylaxis -Scds -Lovenox 40 mg SC DNR/DNI
[2018-05-18] MEDS: Enoxaparin 40 mg Syringe SC SCH (08:31)
[2018-05-18] MEDS: Potassium Chloride 20 mEq ER Tab PO SCH (08:31)
[2018-05-19] MEDS: Potassium Chloride 20 mEq ER Tab PO SCH (08:03)
[2018-05-19] MEDS: Enoxaparin 40 mg Syringe SC SCH (08:03)
--- NOTE | 2018-05-19 08:58 | CP.PCM.PN ---
Subjective - Date & Time of Evaluation Date of Evaluation: 05/19/18 Time of Evaluation: 08:58 - Subjective Subjective: 77M seen and examined at bedside with attending. No acute events overnight. Pt denies SOB, chest pain, or pain. He reports he is eating and drinking well. Objective - Vital Signs/Intake and Output Vital Signs (last 24 hours): Temp Pulse Resp BP Pulse Ox 36.4 C L 61 20 136/78 99 05/19/18 08:03 05/19/18 08:03 05/19/18 08:03 05/19/18 08:03 05/19/18 08:03 - Medications Medications: Current Medications Docusate Sodium (Colace) 100 mg PO DAILY PRN PRN Reason: Constipation Last Admin: 05/15/18 08:44 Dose: 100 mg Enoxaparin Sodium (Lovenox) 40 mg SC DAILY TAYLA PRN Reason: Protocol Last Admin: 05/19/18 08:03 Dose: 40 mg Mupirocin (Bactroban Ointment) 1 applic TOP DAILY TAYLA Last Admin: 05/19/18 08:02 Dose: 1 applic Potassium Chloride (K-Dur 20 Meq Er Tab) 20 meq PO DAILY TAYLA Last Admin: 05/19/18 08:03 Dose: 20 meq Tamsulosin HCl (Flomax) 0.4 mg PO DAILY TAYLA Last Admin: 05/19/18 08:03 Dose: 0.4 mg - Labs Labs: 05/18/18 06:10 05/18/18 06:10 PT 10.8 Seconds (9.8-13.1) 05/04/18 04:00 INR 1.0 (0.9-1.2) 05/04/18 04:00 APTT 29.1 Seconds (25.6-37.1) 05/04/18 04:00 - Constitutional Appears: Non-toxic, Cachectic, Chronically Ill - Eye Exam Eye Exam: Normal appearance - Respiratory Exam Respiratory Exam: Clear to Ausculation Bilateral, NORMAL BREATHING PATTERN - Cardiovascular Exam Cardiovascular Exam: REGULAR RHYTHM - GI/Abdominal Exam GI & Abdominal Exam: Soft, Normal Bowel Sounds (ostomy with soft, brown stool) - Extremities Exam Extremities Exam: Normal Capillary Refill, Normal Inspection - Neurological Exam Neurological Exam: Alert, Awake - Psychiatric Exam Psychiatric exam: Normal Affect, Normal Mood - Skin Skin Exam: Dry, Warm Assessment and Plan - Assessment and Plan (Free Text) Assessment: 77M with stage IV rectal ca who decided on hospice and is awaiting transfer on . Plan: Diet: Regular DVT Prophylaxis: SCDs Rectal ca Stage IV: hospice, ostomy patent with soft brown stool BPH: c/w FoMax Dispo: Hospice 05/20
[2018-05-19] MEDS ORDERED: Sodium Chloride 0.9% 500 ML IV SCH (13:00)
[2018-05-19 16:21] VITALS: O2SAT 98
[2018-05-20 06:38] LABS: CALCIUM 8.6 mg/dL (8.4-10.2)
[2018-05-20] MEDS: Enoxaparin 40 mg Syringe SC SCH (08:12)
[2018-05-20 08:14] VITALS: BP 123/69; PULSE 91; RESP 20; TEMP 97.5
--- NOTE | 2018-05-20 12:44 | CP.PCM.DIS ---
Provider - Provider Date of Admission: 04/15/18 10:20 Attending physician: Christy Fernandez MD Primary care physician: [facility] Consults: Surgery, Dr. Tyler ID, Dr. Mosher Hem-Onc, Dr. Thompson Urology, Dr. 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 (6) Inguinal hernia Status: Chronic (7) Urinary tract infection Status: Acute Hospital Course - Lab Results Lab Results: Micro Results 04/26/18 09:05 Urine,Catheterized Urine Culture - Final No Growth (<1,000 CFU/ML) 04/15/18 10:30 Blood Blood Culture - Final NO GROWTH AFTER 5 DAYS 04/15/18 10:30 Blood Gram Stain - Final TEST NOT PERFORMED 04/15/18 10:30 Blood Blood Culture - Final NO GROWTH AFTER 5 DAYS 04/15/18 10:30 Blood Gram Stain - Final TEST NOT PERFORMED 04/17/18 14:00 Urine,Clean Catch Urine Culture - Final No Growth (<1,000 CFU/ML) 04/15/18 09:25 Urine Urine Culture - Final 10-50,000 CFU/ML. MULTIPLE SPECIES. PROBABLE CONTAMINATION. Most Recent Lab Values WBC 6.0 K/uL (4.8-10.8) 05/18/18 06:10 RBC 3.28 Mil/uL (4.40-5.90) L 05/18/18 06:10 Hgb 9.7 g/dL (12.0-18.0) L 05/18/18 06:10 Hct 28.8 % (35.0-51.0) L 05/18/18 06:10 MCV 87.8 fl (80.0-94.0) 05/18/18 06:10 MCH 29.6 pg (27.0-31.0) 05/18/18 06:10 MCHC 33.7 g/dL (33.0-37.0) 05/18/18 06:10 RDW 15.9 % (11.5-14.5) H 05/18/18 06:10 Plt Count 252 K/uL (130-400) 05/18/18 06:10 MPV 8.0 fl (7.2-11.7) 05/18/18 06:10 Neut % (Auto) 62.3 % (50.0-75.0) 05/18/18 06:10 Lymph % (Auto) 18.6 % (20.0-40.0) L 05/18/18 06:10 Mcdonald % (Auto) 7.6 % (0.0-10.0) 05/18/18 06:10 Eos % (Auto) 10.3 % (0.0-4.0) H 05/18/18 06:10 Baso % (Auto) 1.2 % (0.0-2.0) 05/18/18 06:10 Neut # (Auto) 3.8 K/uL (1.8-7.0) 05/18/18 06:10 Lymph # (Auto) 1.1 K/uL (1.0-4.3) 05/18/18 06:10 Mcdonald # (Auto) 0.5 K/uL (0.0-0.8) 05/18/18 06:10 Eos # (Auto) 0.6 K/uL (0.0-0.7) 05/18/18 06:10 Baso # (Auto) 0.1 K/uL (0.0-0.2) 05/18/18 06:10 Retic Count 1.6 % (0.5-1.5) H 05/03/18 06:05 PT 10.8 Seconds (9.8-13.1) 05/04/18 04:00 INR 1.0 (0.9-1.2) 05/04/18 04:00 APTT 29.1 Seconds (25.6-37.1) 05/04/18 04:00 Sodium 138 mmol/l (132-148) 05/20/18 05:40 Potassium 4.3 MMOL/L (3.6-5.0) 05/20/18 05:40 Chloride 105 mmol/L (98-107) 05/20/18 05:40 Carbon Dioxide 27 mmol/L (22-30) 05/20/18 05:40 Anion Gap 10 (10-20) 05/20/18 05:40 BUN 30 mg/dl (9-20) H 05/20/18 05:40 Creatinine 1.4 mg/dl (0.8-1.5) 05/20/18 05:40 Est GFR ( Amer) 59 05/20/18 05:40 Est GFR (Non-Af Amer) 49 05/20/18 05:40 POC Glucose (mg/dL) 109 mg/dL (65-110) 04/26/18 21:56 Random Glucose 89 mg/dL (75-110) 05/20/18 05:40 Calcium 8.6 mg/dL (8.4-10.2) 05/20/18 05:40 Ferritin 118.0 ng/Ml (17.9-464) 05/03/18 06:05 Total Bilirubin 0.5 mg/dl (0.2-1.3) 05/18/18 06:10 AST 16 U/L (17-59) L D 05/18/18 06:10 ALT 15 U/L (21-72) L 05/18/18 06:10 Alkaline Phosphatase 66 U/L (38-126) 05/18/18 06:10 Total Protein 6.1 G/DL (6.3-8.2) L 05/18/18 06:10 Albumin 2.9 g/dL (3.5-5.0) L 05/18/18 06:10 Globulin 3.2 gm/dL (2.2-3.9) 05/18/18 06:10 Albumin/Globulin Ratio 0.9 (1.0-2.1) L 05/18/18 06:10 Carcinoembryonic Ag 2.3 ng/mL (0-3.0) 05/03/18 06:05 Vitamin B12 393 pg/mL (239-931) 05/03/18 06:05 Folate 9.6 ng/mL 05/03/18 06:05 Procalcitonin < 0.05 NG/ML (0.19-0.49) L 04/15/18 13:30 Urine Color Yellow (YELLOW) 04/27/18 05:42 Urine Clarity Cloudy (Clear) 04/27/18 05:42 Urine pH 6.0 (5.0-8.0) 04/27/18 05:42 Ur Specific Outlook 1.011 (1.003-1.030) 04/27/18 05:42 Urine Protein 30 mg/dL (NEGATIVE) 04/27/18 05:42 Urine Glucose (UA) Neg mg/dL (Normal) 04/27/18 05:42 Urine Ketones Negative mg/dL (NEGATIVE) 04/27/18 05:42 Urine Blood Large (NEGATIVE) 04/27/18 05:42 Urine Nitrate Negative (NEGATIVE) 04/27/18 05:42 Urine Bilirubin Negative (NEGATIVE) 04/27/18 05:42 Urine Urobilinogen 0.2-1.0 mg/dL (0.2-1.0) 04/27/18 05:42 Ur Leukocyte Esterase Small Garcia/uL (Negative) 04/27/18 05:42 Urine RBC (Auto) 588 /hpf (0-3) H 04/27/18 05:42 Urine WBC Clumps (Auto) Few /hpf (NONE) H 04/27/18 05:42 Urine Microscopic WBC 27 /hpf (0-5) H 04/27/18 05:42 Urine Bacteria Occ (<OCC) H 04/27/18 05:42 Urine Yeast (Budding) Few /hpf (NEGATIVE) H 04/27/18 05:42 - Hospital Course Hospital Course: 77 y/o male with a PMH of rectal adenocarcinoma, emile-rectal mass, right inguinal hernias, chronic anemia, and BPH admitted for VRE urinary tract infection and perirectal abscess. Patient is s/p cysto b/l stent insertion, perirectal mass biopsies and I&D, EUA, rigid sigmoidoscopy and s/p partial colectomy and colostomy bag. Perineum Biopsy: Confirmed Adenocarcinoma. As per surgery, Rectal tumor is outside the surgical resection margins, patient is not candidate for surgical resection at this time and suggested Chemo+RXT. Dr. Thompson consulted, Patient is s/p Portacath placement. As per Dr. Thompson; patient may benefit from modified FOLFOX6 + Avastin. Patient decided to go for HOSPICE. Patient discharged to [facility] with colostomy care, and wound care instruction with Chemo-port. Rx for Flomax 0.4mg daily given to patient. Discharge Exam - Head Exam Head Exam: NORMAL INSPECTION - Eye Exam Eye Exam: Normal appearance - ENT Exam ENT Exam: Mucous Membranes Moist - Respiratory Exam Respiratory Exam: Clear to PA & Lateral, NORMAL BREATHING PATTERN - Cardiovascular Exam Cardiovascular Exam: REGULAR RHYTHM, +S1, +S2 Additional comments: Right upper chest chemo-port - GI/Abdominal Exam Additional comments: left colostomy bag, clean, minimum output seen this morning, no blood Right prior colostomy site, clear discharge was seen , no erythema or tenderness - Rectal Exam Additional comments: rectal mass/abscess: non-tender, c/w wound care - Extremities Exam Extremities exam: normal capillary refill, normal inspection - Back Exam Back exam: absent: CVA tenderness (L), CVA tenderness (R) - Neurological Exam Neurological exam: Alert, CN II-XII Intact, Oriented x3 - Psychiatric Exam Psychiatric exam: Normal Affect, Normal Mood - Skin Skin Exam: Dry, Intact, Normal Color, Warm Discharge Plan - Discharge Medications Prescriptions: Tamsulosin [Flomax] 0.4 mg PO DAILY #30 cap - Follow Up Plan Condition: STABLE Disposition: TRANSF TO SNF Instructions: Chemotherapy, Urinary Tract Infection, Adult (DC), Colostomy Care Additional Instructions: C/w rectal mass/wound care C/w Colostomy care and previous colostomy site dressing care Follow up for stent change or removal in 3 to [facility] para chemoterapia continue con cuidado de colostomia e irida. Referrals: Neo Thompson MD [Staff Provider] - Christy Fernandez MD [Staff Provider] -
== END 2018-05-20 09:50 | DRG 553 ==
LOC: H.ER 06:30 → H.ERHOLD 10:20 → H.TEL 16:46 → H.MEDSURG1 04-19 16:19
PROVIDERS: ADMIT Family Medicine Geriatric Medicine; ATTEND Family Medicine Geriatric Medicine
PROC: 0TJB8ZZ Inspection of Bladder, Via Natural or Artificial Opening Endoscopic (ICD-10-PCS; 2018-04-23)
PROC: 0DBP8ZX Excision of Rectum, Via Natural or Artificial Opening Endoscopic, Diagnostic (ICD-10-PCS; 2018-04-23)
PROC: 0DBP3ZZ Excision of Rectum, Percutaneous Approach (ICD-10-PCS; principal; 2018-04-23 09:15)
PROC: 0T783DZ Dilation of Bilateral Ureters with Intraluminal Device, Percutaneous Approach (ICD-10-PCS; 2018-04-23 09:15)
PROC: 0JH63WZ Insertion of Totally Implantable Vascular Access Device into Chest Subcutaneous Tissue and Fascia, Percutaneous Approach (ICD-10-PCS; 2018-05-06)
DX: C20 Malignant neoplasm of rectum (principal); N17.9 Acute kidney failure, unspecified; E87.6 Hypokalemia; K61.2 Anorectal abscess; L02.215 Cutaneous abscess of perineum; L02.31 Cutaneous abscess of buttock; N13.30 Unspecified hydronephrosis; N39.0 Urinary tract infection, site not specified; D63.0 Anemia in neoplastic disease; K40.90 Unilateral inguinal hernia, without obstruction or gangrene, not specified as recurrent; N40.0 Benign prostatic hyperplasia without lower urinary tract symptoms; B95.2 Enterococcus as the cause of diseases classified elsewhere; Z16.21 Resistance to vancomycin; Z59.0 Homelessness; Z66 Do not resuscitate; Z85.048 Personal history of other malignant neoplasm of rectum, rectosigmoid junction, and anus; Z93.3 Colostomy status; F10.10 Alcohol abuse, uncomplicated; M54.9 Dorsalgia, unspecified; R03.0 Elevated blood-pressure reading, without diagnosis of hypertension; R30.0 Dysuria; R31.9 Hematuria, unspecified